=== PATIENT | female | born 1980 | race Caucasian/White ===

== ENCOUNTER 2017-02-11 16:11 | Inpatient (IN) | payer OTHER ==
[~2017-02-11] VITALS: Ht 162.6 cm; Wt 110.9 kg
[~2017-02-11 16:11] MED LIST: FERR28TA2 OR; LBT/200 PO; PERCOCET 5-325M1 TAB PO; PRENATA2 OR
[2017-02-11] MEDS ORDERED: SODIUM CHLORIDE 0.9% 1000ML 1,000 ML IV STA (16:31)
[2017-02-11] MEDS ORDERED: METF-384 PO (16:53)
[2017-02-11] MEDS ORDERED: DULA1INJ SQ (16:57)
[2017-02-11 17:11] LABS: BASO % 0.1 %; BASO ABS # 0.01 K/uL (0-0.2); COMPLETE YES; EOS % 2.4 %; HEMATOCRIT 32.8 % (37-47); IG% 0.2 %; LYMPH % 22.2 %; LYMPH ABS # 1.98 K/uL (1.2-3.4); MEAN CELL VOLUME 89.9 fL (80-100); MEAN CORPUSCULAR HEMOGLOBIN 31.8 pg (25-34); MEAN CORPUSCULAR HGB CONC 35.4 g/dl (32-36); MEAN PLATELET VOLUME 8.4 fL (7.4-10.4); NEUT % 66.1 %; PLATELET COUNT 253 K/uL (130-400); RED BLOOD COUNT 3.65 M/uL (4.2-5.4); WHITE BLOOD COUNT 8.93 K/uL (4.8-10.8)
[2017-02-11 17:41] LABS: PREG INTERNAL NEGATIVE QC NEG CLEAR BACKGROUND; PREG INTERNAL POSITIVE QC POS CONTROL LINE
[2017-02-11 17:45] LABS: ALKALINE PHOSPHATASE 57 U/L (45-117); ALT/SGPT 343 U/L (12-78); AST/SGOT 266 U/L (15-37); BLOOD UREA NITROGEN 75 mg/dl (7-18); BUN/CREATININE RATIO 6.2 (10-20); CALCIUM 9.4 mg/dl (8.5-10.1); CARBON DIOXIDE 20 mmol/L (21-32); CHLORIDE 99 mmol/L (98-107); GLUCOSE 145 mg/dl (70-99); POTASSIUM 4.2 mmol/L (3.5-5.1); SODIUM 134 mmol/L (136-145)
[2017-02-11 18:34] LABS: URINE APPEARANCE TURBID (CLEAR); URINE BILIRUBIN NEG (NEG); URINE COLOR ORANGE; URINE EPITHELIAL CELL AUTO >30 /lpf (0-5); URINE NITRITE NEG (NEG); URINE SPECIFIC GRAVITY 1.017 (1.000-1.030); UROBILINOGEN NEG (NEG)
[2017-02-11 18:38] LABS: MANUAL MICROSCOPIC REQUIRED? NO; REVIEW REQ? YES
[2017-02-11] MEDS ORDERED: MAGNESIUM HYDROXIDE SUSP 30 ML UDC PO PRN (20:00)
[2017-02-11] MEDS ORDERED: ALUMINUM/MAGNESIUM/SIMETH (MAALOX MAX) 30 ML UDC PO PRN (20:00)
[2017-02-11] MEDS ORDERED: ONDANSETRON INJ 2 MG/ML 2 ML VIAL IV PRN (20:00)
--- NOTE | 2017-02-11 20:19 | History and Physical ---
History & Physical Date & Time of Service: Feb 11, 2017 at 19:59 Chief Complaint: Vomiting, Diarrhea, Fatigue Primary Care Physician: Alexandro Malhotra M.D. History of Present Illness Source: patient 36 year old female with a PMH of T2DM presented to the hospital after she noticed that she had not urinated in two days She was having a yard sale this weekend and was moving plenty of boxes. She was exerting herself a lot and did not take a lot of time to rest. On she started having lots of aches and pains which got better yesterday. She was also feeling very nauseated all weekend and vomited on Saturday. Despite feeling this way she continued to exert herself throughout the weekend. She drank 2-3 bottles of water daily; however, she did not have much of an appetite over the weekend due to the aches and pains. Then this morning she noticed that she had not urinated in two days and therefore she came to the emergency department. In the ED she was found to have a Creatinine of 12 and was found to have CK of 8278 and therefore she was admitted to the hospital Family History Mom has diabetes Social History Smoking Status: Never Smoker Alcohol Use: occasionally Drug Use: none Housing status: lives with family Multi-Drug Resistant Organisms History of MDRO: No Allergies Coded Allergies: Aspirin (Verified Allergy, Intermediate, SWELLING, 11/21/09) Iodine (Verified Allergy, Unknown, SHELLFISH, 11/16/09) Salicylates (Verified Allergy, Unknown, ?, 11/16/09) Home Medications Scheduled Dulaglutide (Trulicity), 0.75 MG SQ WK Metformin Hcl (Glucophage), 1,000 MG PO BID Pravastatin Sod (Pravastatin Sodium), 10 MG PO DAILY Sertraline (Zoloft), 50 MG PO DAILY Review of Systems Constitutional: + chills, + fatigue, No fever, No sweats Respiratory: No cough, No sputum, No shortness of breath, No dyspnea on exertion Cardiovascular: No chest pain, No orthopnea, No edema, No palpitations Abdomen: + nausea, + vomiting, No pain, No diarrhea, No constipation Musculoskeletal: + muscle pain, No joint pain Genitourinary - Female: No dysuria, No hematuria Hematologic / Lymphatic: No abnormal bleeding/bruising, No clotting problems Integumentary: No rash, No itch, No new/changing skin lesions Physical Exam Vital Signs Date Time Temp Pulse Resp B/P (MAP) Pulse Ox O2 Delivery O2 Flow Rate FiO2 02/11/17 18:05 97 20 171/104 99 Room Air 02/11/17 17:25 89 02/11/17 17:17 90 20 171/106 100 Room Air 02/11/17 16:14 36.9 96 16 181/101 99 Room Air General Appearance: WD/WN, no apparent distress, + obese Head: normocephalic, atraumatic ENT: hearing grossly normal, pharynx normal Neck: supple, no adenopathy, thyroid normal, no JVD, no carotid bruits Respiratory/Chest: chest non-tender, lungs clear, normal breath sounds, no respiratory distress, no accessory muscle use Cardiovascular: regular rate, rhythm, no edema, no gallop, no murmur, normal peripheral pulses Abdomen/GI: normal bowel sounds, non tender, soft, no organomegaly Back: normal inspection, no CVA tenderness, no muscle spasm Extremities/Musculoskelatal: no calf tenderness, no pedal edema, normal range of motion, non-tender Neurologic/Psych: alert, normal mood/affect, oriented x 3 Skin: normal color, warm/dry, no rash Diagnostics Laboratory Results Results Past 24 Hours Test 02/11/17 16:55 02/11/17 16:56 02/11/17 17:01 02/11/17 18:10 Range/Units Bedside Glucose 147 70-90 mg/dl White Blood Count 8.93 4.8-10.8 K/uL Red Blood Count 3.65 4.2-5.4 M/uL Hemoglobin 11.6 12.0-16.0 g/dL Hematocrit 32.8 37-47 % Mean Corpuscular Volume 89.9 80-100 fL Mean Corpuscular Hemoglobin 31.8 25-34 pg Mean Corpuscular Hemoglobin Concent 35.4 32-36 g/dl Platelet Count 253 130-400 K/uL Mean Platelet Volume 8.4 7.4-10.4 fL Neutrophils (%) (Auto) 66.1 % Lymphocytes (%) (Auto) 22.2 % Monocytes (%) (Auto) 9.0 % Eosinophils (%) (Auto) 2.4 % Basophils (%) (Auto) 0.1 % Neutrophils # (Auto) 5.91 1.4-6.5 K/uL Lymphocytes # (Auto) 1.98 1.2-3.4 K/uL Monocytes # (Auto) 0.80 0.11-0.59 K/uL Eosinophils # (Auto) 0.21 0-0.5 K/uL Basophils # (Auto) 0.01 0-0.2 K/uL RDW Standard Deviation 42.9 36.4-46.3 fL RDW Coefficient of Variation 13.1 11.5-14.5 % Immature Granulocyte % (Auto) 0.2 % Immature Granulocyte # (Auto) 0.02 0.00-0.02 K/uL Sodium Level 134 136-145 mmol/L Potassium Level 4.2 3.5-5.1 mmol/L Chloride Level 99 98-107 mmol/L Carbon Dioxide Level 20 21-32 mmol/L Anion Gap 15.0 3-11 mmol/L Blood Urea Nitrogen 75 7-18 mg/dl Creatinine 12.00 0.60-1.20 mg/dl Est Creatinine Clear Calc Drug Dose 7.5 ml/min Estimated GFR () 4.1 Estimated GFR (Non- 3.5 BUN/Creatinine Ratio 6.2 10-20 Random Glucose 145 70-99 mg/dl Calcium Level 9.4 8.5-10.1 mg/dl Total Bilirubin 0.3 0.2-1 mg/dl Direct Bilirubin < 0.1 0-0.2 mg/dl Aspartate Amino Transf (AST/SGOT) 266 15-37 U/L Alanine Aminotransferase (ALT/SGPT) 343 12-78 U/L Alkaline Phosphatase 57 45-117 U/L Total Creatine Kinase 8728 26-192 U/L Total Protein 7.2 6.4-8.2 gm/dl Albumin 3.3 3.4-5.0 gm/dl Lipase 375 73-393 U/L Human Chorionic Gonadotropin, Qual NEG NEG Bedside Troponin I < 0.030 0-0.045 ng/ml Urine Color ORANGE Urine Appearance TURBID CLEAR Urine pH 6.0 4.5-7.5 Urine Specific [place] 1.017 1.000-1.030 Urine Protein 4+ NEG Urine Glucose (UA) 1+ NEG Urine Ketones NEG NEG Urine Occult Blood 3+ NEG Urine Nitrite NEG NEG Urine Bilirubin NEG NEG Urine Urobilinogen NEG NEG Urine Leukocyte Esterase MODERATE NEG Urine WBC (Auto) >30 0-5 /hpf Urine RBC (Auto) >30 0-4 /hpf Urine Hyaline Casts (Auto) 1-5 0-5 /lpf Urine Epithelial Cells (Auto) >30 0-5 /lpf Urine Bacteria (Auto) 3+ NEG Urine Crystals NONE PRSENT Urine Pathogenic Casts 0 /lpf Normal EKG Impression Assessment and Plan 36 year old female with a PMH of T2DM came to the hospital after not having urinated in two days and was found to have a creatinine of 12 Differential diagnosis for this individual includes rhabdomyolysis due to extreme exertion over the weekend. There is also the question as to whether or not her new diabetic medication (trulicity) has caused nephrotoxicity. RADHA (rhabdomyolysis) - creatinine 12 in the ED - repeat CMP in the AM - IVF 150mls/hr - monitor I/O's - hold home meds Elevated LFT's - likely due to rhabdo, patient also on statin - statin held - repeat CMP in the AM T2DM - ISS - hold metformin and trulicity Depression - continue zoloft Diet - T2DM diet DVT Prophylaxis - heparin subq Code - Full Level of Care Med/Surg Resuscitation Status FULL RESUSCITATION VTE Prophylaxis VTE Risk Assessment Done? Y/N: Yes Risk Level: Moderate Given or contraindicated: Unfractionated heparin SQ
[2017-02-11] MEDS ORDERED: GLUCOSE 10 TABS/TUBE PO PRN (20:30)
[2017-02-11] MEDS ORDERED: GLUCAGON FOR INJ 1 MG VIAL SQ PRN (20:30)
[2017-02-11] MEDS ORDERED: POLYETHYLENE (MIRALAX) 17 GM PACK PO PRN (20:30)
[2017-02-11] MEDS ORDERED: GLUCOSE 40% GEL 15 GM TUBE PO PRN (20:30)
[2017-02-11] MEDS ORDERED: DEXTROSE 50% 50 ML SYR IV PRN (20:30)
[2017-02-11 21:12] VITALS: BP 175/97; PULSE 95; TEMP 36.9; O2SAT 98
[2017-02-11 21:22] VITALS: O2SAT 98; BMI 39.3
[2017-02-11] MEDS: SODIUM CHLORIDE 0.9% 1000ML 1,000 ML IV SCH (21:59)
[2017-02-11] MEDS: INSULIN ASPART 100 UNITS/ML 3 ML PEN SC SCH (21:59)
[2017-02-11 22:27] LABS: LYME DISEASE AB IGG NEG (NEG); LYME DISEASE AB IGM NEG (NEG)
[2017-02-11 22:30] VITALS: BP 169/97; PULSE 95
[2017-02-11] MEDS: HEPARIN SOD 5000 UNIT/0.5 ML CARP SQ SCH (22:30)
[2017-02-11 22:45] VITALS: BP 151/84; PULSE 106; TEMP 36.8; O2SAT 99
[2017-02-11] MEDS ORDERED: NURSING VERBAL MED ORDER ONE (22:45)
[2017-02-11] MEDS ORDERED: METOPROLOL TARTRATE 50 MG TAB PO ONE (23:16)
[2017-02-11 23:22] VITALS: BP 173/113; PULSE 93
[2017-02-12] VITALS (7 sets, daily range): BP systolic 146–179; BP diastolic 89–108; PULSE 70–76; TEMP 36.2–36.8; O2SAT 94–97
--- NOTE | 2017-02-12 00:44 | EMERGENCY ROOM VISIT NOTE ---
ED Visit Note First contact with patient: 16:17 Chief Complaint: Fatigue and decreased urination. History of Present Illness: Ms. Smith is a 36-year-old white female who ambulates into the ED accompanied by a female friend, generalized body aches, generalized abdominal pain and decreased urination. Patient reports last , 4 days ago, she reports she was working around her house; lifting heavy boxes, moving furniture, etc. She reports she became nauseated and had one episode of vomiting. Then on Saturday she reports she was not working around the house but was having fatigue, diaphoresis, generalized muscle aches. Lastly she reports she has not been able to urinate for the last 2 days. She reports she has no urge, but she has sat on the toilet but was not able to produce any urine and she reports that her stools were watery when she had a bowel movement but she has had no increase in the amount of her bowel movements. She questions whether she is dehydrated because she also reports that she feels thirsty and has been drinking lots of water; she could not identify the exact amount. Patient denies fevers, chills, skin eruptions, skin color changes, headache, dizziness, lightheadedness, abnormal neurological symptoms, upper respiratory tract symptoms, chest pain, shortness of breath, cough, wheezing, palpitations, additional nausea, additional vomiting, bloody stools, black/tarry stools, previous urinary burning, hematuria, back/flank pain, extremity weakness/ numbness/tingling. Review of Systems: As noted above in history of present illness. All body systems were reviewed and found to be negative as noted above. Past Medical History: Diabetes. Current Medications: Trulicity, Zoloft, Pravastatin, Glucophage. Allergies to Medications: Aspirin, salicylates, iodine. Social History: Patient is currently employed; she feels safe in her home environment; she denies tobacco use and admits to social alcohol use. Physical Examination: Vital Signs: Date Time Temp Pulse Resp B/P (MAP) Pulse Ox O2 Delivery O2 Flow Rate FiO2 02/11/17 18:05 97 20 171/104 99 Room Air 02/11/17 17:25 89 02/11/17 17:17 90 20 171/106 100 Room Air 02/11/17 16:14 36.9 96 16 181/101 99 Room Air GENERAL: 36-year-old female in mild distress due to symptoms, nontoxic-appearing , afebrile and hemodynamically stable. NEUROLOGICAL: Awake, alert and oriented to person, place and time. Answering questions appropriately and following commands. Normal gait. Good hand eye coordination. No focal motor or sensory deficits. SKIN: Warm, dry and pink. HEENT: Atraumatic and normocephalic. PERRLA. Sclera white and conjunctiva pink. No drainage from naris. Oral cavity moist and pink. Pharynx is nonerythematous or edematous. Airway is patent. Speech normal. Trachea midline. No jugular venous distention. BACK: No tenderness over the bony spine. No CVA tenderness. THORAX: Lungs sounds are clear to auscultation and equal bilaterally with symmetrical chest wall. No crepitus, tenderness, subcutaneous air or deformities noted. HEART: Regular rate and rhythm. No gallops, rubs or murmurs are appreciated. ABDOMEN: Obese, soft and nontender. Positive bowel sounds in all quadrants. No guarding, rigidity or organomegaly. EXTREMITIES: Moves all extremities well on command and with purpose. All distal neurovascular statuses are intact and equal bilaterally. No calf tenderness or cords. ED Course: Patient is assessed as noted above. Patient's medication list was reviewed. Laboratory Testing: Test 02/11/17 16:55 02/11/17 16:56 02/11/17 17:01 02/11/17 18:10 Range/Units Bedside Glucose 147 70-90 mg/dl White Blood Count 8.93 4.8-10.8 K/uL Red Blood Count 3.65 4.2-5.4 M/uL Hemoglobin 11.6 12.0-16.0 g/dL Hematocrit 32.8 37-47 % Mean Corpuscular Volume 89.9 80-100 fL Mean Corpuscular Hemoglobin 31.8 25-34 pg Mean Corpuscular Hemoglobin Concent 35.4 32-36 g/dl Platelet Count 253 130-400 K/uL Mean Platelet Volume 8.4 7.4-10.4 fL Neutrophils (%) (Auto) 66.1 % Lymphocytes (%) (Auto) 22.2 % Monocytes (%) (Auto) 9.0 % Eosinophils (%) (Auto) 2.4 % Basophils (%) (Auto) 0.1 % Neutrophils # (Auto) 5.91 1.4-6.5 K/uL Lymphocytes # (Auto) 1.98 1.2-3.4 K/uL Monocytes # (Auto) 0.80 0.11-0.59 K/uL Eosinophils # (Auto) 0.21 0-0.5 K/uL Basophils # (Auto) 0.01 0-0.2 K/uL RDW Standard Deviation 42.9 36.4-46.3 fL RDW Coefficient of Variation 13.1 11.5-14.5 % Immature Granulocyte % (Auto) 0.2 % Immature Granulocyte # (Auto) 0.02 0.00-0.02 K/uL Sodium Level 134 136-145 mmol/L Potassium Level 4.2 3.5-5.1 mmol/L Chloride Level 99 98-107 mmol/L Carbon Dioxide Level 20 21-32 mmol/L Anion Gap 15.0 3-11 mmol/L Blood Urea Nitrogen 75 7-18 mg/dl Creatinine 12.00 0.60-1.20 mg/dl Est Creatinine Clear Calc Drug Dose 7.5 ml/min Estimated GFR () 4.1 Estimated GFR (Non- 3.5 BUN/Creatinine Ratio 6.2 10-20 Random Glucose 145 70-99 mg/dl Calcium Level 9.4 8.5-10.1 mg/dl Total Bilirubin 0.3 0.2-1 mg/dl Direct Bilirubin < 0.1 0-0.2 mg/dl Aspartate Amino Transf (AST/SGOT) 266 15-37 U/L Alanine Aminotransferase (ALT/SGPT) 343 12-78 U/L Alkaline Phosphatase 57 45-117 U/L Total Creatine Kinase 8728 26-192 U/L Total Protein 7.2 6.4-8.2 gm/dl Albumin 3.3 3.4-5.0 gm/dl Lipase 375 73-393 U/L Human Chorionic Gonadotropin, Qual NEG NEG Lyme Disease IgG Antibody NEG NEG Lyme Disease IgM Antibody NEG NEG Bedside Troponin I < 0.030 0-0.045 ng/ml Urine Color ORANGE Urine Appearance TURBID CLEAR Urine pH 6.0 4.5-7.5 Urine Specific [place] 1.017 1.000-1.030 Urine Protein 4+ NEG Urine Glucose (UA) 1+ NEG Urine Ketones NEG NEG Urine Occult Blood 3+ NEG Urine Nitrite NEG NEG Urine Bilirubin NEG NEG Urine Urobilinogen NEG NEG Urine Leukocyte Esterase MODERATE NEG Urine WBC (Auto) >30 0-5 /hpf Urine RBC (Auto) >30 0-4 /hpf Urine Hyaline Casts (Auto) 1-5 0-5 /lpf Urine Epithelial Cells (Auto) >30 0-5 /lpf Urine Bacteria (Auto) 3+ NEG Urine Crystals NONE PRSENT Urine Pathogenic Casts 0 /lpf EKG: Was read by myself and reviewed with Dr. Sanz; shows normal sinus rhythm with a ventricular rate of 88 bpm. Normal axis, intervals and complexes. No acute ST changes indicating ischemia, injury or infarction. This was compared to a previous from November 2009 and no acute changes were noted. Bladder Scan: Showed 30 mL of urine in the bladder. Patient was hydrated with normal saline; she was offered pain medications and refused. Patient was reassessed multiple times during her stay in the emergency department. Patient's case was reviewed with Dr. Sanz; we agreed on diagnostic approach , treatment, disposition and plan. Patient's case was consulted with case management and the doctor Tiana Edgar , hospitalist, for medical observation/admission. Patient was educated about today's findings. Clinical Impression: Rhabdomyolysis. Acute kidney injury. Elevated liver function tests. Decision-Making: Initially my differential diagnosis I considered rhabdomyolysis , acute coronary syndrome, thyroid dysfunction, electrolyte abnormality, urinary tract infection and other causes. Disposition and Plan: Patient be brought in the hospital for observation/ admission by the hospitalist; please see their notes and orders for final disposition and plan.
[2017-02-12] MEDS: SODIUM CHLORIDE 0.9% 1000ML 1,000 ML IV SCH ×3 (03:49→17:25)
[2017-02-12 06:43] LABS: ALB/GLOB RATIO 0.7 (0.9-2); BUN/CREATININE RATIO 6.3 (10-20); POTASSIUM 4.5 mmol/L (3.5-5.1)
[2017-02-12] MEDS: SERTRALINE HCL 50 MG TAB PO SCH (08:56)
[2017-02-12] MEDS: INSULIN ASPART 100 UNITS/ML 3 ML PEN SC SCH ×4 (09:00→20:55)
[2017-02-12] MEDS ORDERED: METOPROLOL TARTRATE 50 MG TAB PO SCH (09:00)
[2017-02-12] MEDS ORDERED: ENOXAPARIN 30 MG/0.3 ML SYR SQ SCH (09:00)
[2017-02-12] MEDS: HEPARIN SOD 5000 UNIT/0.5 ML CARP SQ SCH ×2 (10:29→21:15)
--- NOTE | 2017-02-12 11:20 | DIAGNOSTIC IMAGING REPORT ---
ULTRASOUND KIDNEYS AND BLADDER CLINICAL HISTORY: Acute renal insufficiency. COMPARISON STUDY: No priors. TECHNIQUE: Real-time, grayscale, and color flow sonography of the kidneys and bladder is performed. Images are reviewed in the transverse and longitudinal planes. FINDINGS: Kidneys: The kidneys are normal in size and echotexture. The right kidney measures 14.0 x 7.2 x 6.2 cm and the left kidney measures 13.1 x 7.3 x 6.8 cm. There is no hydronephrosis. No shadowing renal calculi are identified. There is no sonographic evidence of contour deforming renal mass lesion. No perinephric fluid is identified. Bladder: The bladder is decompressed and not well assessed. Ureteral jets could not be seen. Upper abdomen: Survey images of the liver show evidence of hepatic steatosis. IMPRESSION: 1. The kidneys are normal in size and without hydronephrosis. 2. The bladder was decompressed and not well assessed. 3. Hepatic steatosis. Electronically signed by: Mane Miles M.D. 02/12/2017 11:19 AM Dictated Date/Time: 02/12/2017 11:18 AM
--- NOTE | 2017-02-12 17:50 | Progress Note ---
Subjective Date of Service: Feb 12, 2017. Subjective Pt evaluation today including: conversation w/ patient, physical exam, chart review, lab review, review of studies, review of inpatient medication list continues to feel achy. no f/c/s. still minimal UO. really no other complaints. ROS otherwise negative except for as above Review of Systems ROS otherwise negative except for as above Objective Vital Signs Date Time Temp Pulse Resp B/P (MAP) Pulse Ox O2 Delivery O2 Flow Rate FiO2 02/12/17 15:50 168/107 (127) 02/12/17 15:45 Room Air 02/12/17 14:47 36.2 71 16 169/108 (128) 97 Room Air 02/12/17 08:15 Room Air 02/12/17 07:14 36.8 76 18 149/89 (109) 97 Room Air 02/12/17 00:42 74 146/89 (108) 02/11/17 23:22 93 173/113 (133) 02/11/17 23:20 Room Air 02/11/17 22:45 36.8 106 16 151/84 (106) 99 Room Air 02/11/17 22:30 95 169/97 (121) 02/11/17 21:52 Room Air 02/11/17 21:22 98 Room Air 02/11/17 21:12 36.9 95 18 175/97 (123) 98 Room Air 02/11/17 20:30 92 20 167/101 99 Room Air 02/11/17 20:04 91 18 185/109 99 Room Air 02/11/17 18:05 97 20 171/104 99 Room Air Physical Exam General Appearance: no apparent distress Eyes: EOMI ENT: hearing grossly normal Neck: trachea midline Respiratory/Chest: no respiratory distress, no accessory muscle use Extremities: normal range of motion Neurologic/Psychiatric: plastic manager II-XII nml as tested, alert, normal mood/affect Skin: normal color, warm/dry Laboratory Results Last 24 Hours Test 02/11/17 18:10 02/11/17 21:12 02/12/17 05:04 02/12/17 08:11 Urine Color ORANGE Urine Appearance TURBID Urine pH 6.0 Urine Specific [place] 1.017 Urine Protein 4+ Urine Glucose (UA) 1+ Urine Ketones NEG Urine Occult Blood 3+ Urine Nitrite NEG Urine Bilirubin NEG Urine Urobilinogen NEG Urine Leukocyte Esterase MODERATE Urine WBC (Auto) >30 /hpf Urine RBC (Auto) >30 /hpf Urine Hyaline Casts (Auto) 1-5 /lpf Urine Epithelial Cells (Auto) >30 /lpf Urine Bacteria (Auto) 3+ Urine Crystals Urine Pathogenic Casts /lpf Bedside Glucose 109 mg/dl 119 mg/dl Sodium Level 138 mmol/L Potassium Level 4.5 mmol/L Chloride Level 106 mmol/L Carbon Dioxide Level 17 mmol/L Anion Gap 15.0 mmol/L Blood Urea Nitrogen 69 mg/dl Creatinine 11.00 mg/dl Est Creatinine Clear Calc Drug Dose 8.1 ml/min Estimated GFR () 4.6 Estimated GFR (Non- 3.9 BUN/Creatinine Ratio 6.3 Random Glucose 105 mg/dl Calcium Level 8.0 mg/dl Total Bilirubin 0.3 mg/dl Aspartate Amino Transf (AST/SGOT) 138 U/L Alanine Aminotransferase (ALT/SGPT) 259 U/L Alkaline Phosphatase 52 U/L Total Creatine Kinase 4915 U/L Total Protein 6.4 gm/dl Albumin 2.7 gm/dl Globulin 3.7 gm/dl Albumin/Globulin Ratio 0.7 Test 02/12/17 12:00 02/12/17 16:59 Bedside Glucose 106 mg/dl 115 mg/dl Assessment and Plan ARF -with hindsight, and with CPK not continuing to rise, highly doubt that rhabdo is the cause -while rare, seems more likely that trulicty ADR may be culprit, with dehydration and ?mild rhabdo causing a degree of overlay -renal US without obstruction -continue IVF (since such low UO and now well hydrated, will reduce rate to avoid iatrogenic overload due to near-anuria) -if doesn't show significant improvement into tomorrow then consult nephro Elevated LFT's - multiple possibilities - has fatty liver, statin possible culprit, maybe small effects from rhabdo - statin held - repeat CMP in the AM T2DM - ISS - holding metformin and trulicity - most recent A1c 6.7 Depression - continue zoloft HTN -elevated but don't want to create hypotension that could reduce renal perfusion -through day continued home dose of metoprolol but persistently stage 3 or higher - so will raise to 75mg bid and continue to follow DVT Prophylaxis - heparin subq hypocalcemia -check vitamin D, especially w DM2, renal failure, obesity
[2017-02-12] MEDS: SODIUM CHLORIDE 0.45% 1000ML 1,000 ML IV SCH (18:43)
[2017-02-12] MEDS ORDERED: TEMAZEPAM 7.5 MG CAP PO PRN (19:00)
[2017-02-12] MEDS: METOPROLOL TARTRATE 25 MG TAB PO SCH (21:04)
[2017-02-12] MEDS: ACETAMINOPHEN 325 MG TAB PO PRN (21:04)
[2017-02-13] VITALS (39 sets, daily range): BP systolic 119–249; BP diastolic 78–139; PULSE 72–100; TEMP 36.5–36.9; O2SAT 94–99
[2017-02-13] MEDS: SODIUM CHLORIDE 0.45% 1000ML 1,000 ML IV SCH (03:13)
[2017-02-13] MEDS ORDERED: AMLODIPINE BESYLATE 5 MG TAB PO ONE (08:30)
[2017-02-13] MEDS: METOPROLOL TARTRATE 25 MG TAB PO SCH ×2 (08:57→22:14)
[2017-02-13] MEDS: SERTRALINE HCL 50 MG TAB PO SCH (08:57)
[2017-02-13] MEDS: HydrALAZINE HCL 20 MG/ML VIAL IV. PRN ×2 (09:03→15:13)
[2017-02-13] MEDS: INSULIN ASPART 100 UNITS/ML 3 ML PEN SC SCH ×4 (09:17→22:14)
[2017-02-13 09:28] LABS: ALB/GLOB RATIO 0.7 (0.9-2); BUN/CREATININE RATIO 6.1 (10-20); CALCIUM 8.7 mg/dl (8.5-10.1); POTASSIUM 5.5 mmol/L (3.5-5.1)
[2017-02-13] MEDS ORDERED: FUROSEMIDE INJ 120 MG in SYRINGE 0 ML IV SCH (10:00)
[2017-02-13] MEDS ORDERED: NURSING VERBAL MED ORDER ONE (10:00)
[2017-02-13] MEDS: HEPARIN SOD 5000 UNIT/0.5 ML CARP SQ SCH ×2 (10:00→22:14)
--- NOTE | 2017-02-13 10:35 | DIAGNOSTIC IMAGING REPORT ---
SINGLE VIEW CHEST CLINICAL HISTORY: Dyspnea. FINDINGS: An AP, portable, upright chest radiograph is obtained. No prior studies are available for comparison at the time of dictation. The examination is degraded by portable technique, large body habitus, and apical lordotic positioning. The heart is top normal for projection. The mediastinal contour is within normal limits. There are mild bibasilar airspace opacities. The lungs are otherwise clear. No large pleural effusion or pneumothorax is seen. The bony thorax is grossly intact. IMPRESSION: Bibasilar airspace opacities likely represent atelectasis. Clinical correlation will be required. The lungs are otherwise clear. Electronically signed by: Mane Miles M.D. 02/13/2017 10:34 AM Dictated Date/Time: 02/13/2017 10:33 AM
--- NOTE | 2017-02-13 12:36 | Nephrology Consultation ---
Nephrology Consultation Date & Providers Date of Consultation: Feb 13, 2017. Primary Care Provider: Alexandro Malhotra M.D. Referring Provider: Reason for Consultation Evaluation and management for acute kidney injury, anuria, hyperkalemia and gap metabolic acidosis. History of Present Illness Jamee is a 36-year-old female with past medical history significant for diabetes type 2 and hypertension admitted to the hospital with acute kidney injury. Nephrologic consult was requested for further evaluation management. Electronic medical records were reviewed in detail during patient's visit. Jamee was otherwise doing well until 5 days ago when she started having nausea, fatigue, muscle ache and weakness while she was working around the house. Did not have any diarrhea or abdominal pain. No fever, chills, shortness of breath or chest pain. 3 days ago she started noticing decreased urine output and for last 2 days she did not urinate much, got concerned and presented to the emergency room for further evaluation. She feels thirsty and she reports are that she has been drinking more. she denies chronic NSAID use, rarely uses Advil but recently just took 1 dose of Tylenol. no recent antibiotic. She was started on Trulicity almost 6 weeks ago. Has been on pravastatin, no history of PPI use. She has been on metformin at home. Has not been on any DERICK-inhibitor/ARB. Has history of diabetes for more than 6 years , has been on metformin until recently when she was started on Trulicity almost 6 weeks ago. no history of diabetic retinopathy. no significant history of hypertension. She has history of proteinuria but well preserved GFR, baseline creatinine has been around 1-1.3, Last creatinine was the 1.0 in December. Prior urinalysis showed history of high grade proteinuria. She is a nonsmoker, denies any family history of chronic kidney disease or end-stage renal disease. On admission her creatinine was 12, worsened to 14 on repeat lab this morning. Has metabolic acidosis with high anion gap as well as hyperkalemia, last potassium was 5.5. CPK was 8500 which improved to 4000 this morning. She made minimum amount of urine since admission. has been getting IV normal saline. Pravastatin, Trulicity and metformin was discontinued on admission. Currently she is feeling short of breath and in discomforted with shortness of breath however denies any other symptoms. Allergies Coded Allergies: Aspirin (Verified Allergy, Intermediate, SWELLING, 11/21/09) Iodine (Verified Allergy, Unknown, SHELLFISH, 11/16/09) Salicylates (Verified Allergy, Unknown, ?, 11/16/09) Inpatient Medications Current Inpatient Medications Medications (Trade) Dose Ordered Sig/Xiang Route Start Time Stop Time Status Last Admin Dose Admin Acetaminophen (Tylenol Tab) 650 mg Q4H PRN PO 02/11/17 20:00 03/13/17 19:59 02/12/17 21:04 650 MG Al Hydrox/Mg Hydrox/Simethicone (Maalox Max Susp) 15 ml Q4H PRN PO 02/11/17 20:00 03/13/17 19:59 Magnesium Hydroxide (Milk Of Magnesia Susp) 30 ml Q6H PRN PO 02/11/17 20:00 03/13/17 19:59 Polyethylene (Miralax Powder Packet) 17 gm DAILY PRN PO 02/11/17 20:30 03/13/17 20:29 Ondansetron HCl (Zofran Inj) 4 mg Q6H PRN IV 02/11/17 20:00 03/13/17 19:59 Sertraline HCl (Zoloft Tab) 50 mg DAILY PO 02/12/17 09:00 03/14/17 08:59 02/12/17 08:56 50 MG Insulin Aspart (novoLOG ASPART) SLIDING SCALE G... ACHS SC 02/11/17 22:00 03/13/17 21:59 02/12/17 09:00 3 UNITS Heparin Sodium (Porcine) (Heparin Sq 5000 Unit/0.5ml) 5,000 unit Q12H SQ 02/11/17 22:00 03/13/17 21:59 02/12/17 10:29 5,000 UNIT Glucose (Glucose 40% Gel) 15-30 GRAMS 15 GRAMS... UD PRN PO 02/11/17 20:30 03/13/17 20:29 Glucose (Glucose Chew Tab) 4-8 Tablets 4 Tabl... UD PRN PO 02/11/17 20:30 03/13/17 20:29 Dextrose (Dextrose 50% 50ML Syringe) 25-50ML OF 50% DW IV FOR... UD PRN IV 02/11/17 20:30 03/13/17 20:29 Glucagon (Glucagon Inj) 1 mg UD PRN SQ 02/11/17 20:30 03/13/17 20:29 Metoprolol Tartrate (Lopressor Tab) 75 mg BID PO 02/12/17 21:00 03/14/17 08:59 02/12/17 21:04 75 MG Sodium Chloride 1,000 ml @ 100 mls/hr Q10H IV 02/12/17 18:00 03/14/17 17:59 02/13/17 03:13 100 MLS/HR Temazepam (Restoril Cap) 7.5 mg HS PRN PO 02/12/17 19:00 03/14/17 18:59 02/12/17 21:04 7.5 MG Amlodipine Besylate (Norvasc Tab) 10 mg QAM PO 02/14/17 09:00 03/16/17 08:59 Hydralazine HCl (HydrALAZINE INJ) 5 mg Q4 PRN IV. 02/13/17 08:30 03/15/17 08:29 Family History No h/o CKD, ESRD Social History Smoking Status: Never Smoker Alcohol Use: occasionally Drug Use: none Housing Status: lives with family Review of Systems A complete review of systems was performed. Pertinent positives are noted above. All other systems are negative. Physical Exam Date Time Temp Pulse Resp B/P (MAP) Pulse Ox O2 Delivery O2 Flow Rate FiO2 02/13/17 08:38 73 30 194/109 (137) 02/13/17 08:13 75 26 196/116 (142) 96 Room Air 02/13/17 08:08 72 34 204/132 (156) 96 Room Air 02/13/17 08:06 36.5 73 28 187/126 (146) 97 Room Air 02/13/17 00:22 159/98 (118) 02/13/17 00:15 Room Air 02/12/17 23:57 168/101 (123) 02/12/17 23:35 36.7 71 18 179/101 (127) 94 Room Air 02/12/17 20:58 70 166/100 (122) 02/12/17 15:50 168/107 (127) 02/12/17 15:45 Room Air 02/12/17 14:47 36.2 71 16 169/108 (128) 97 Room Air GENERAL: young female, obese, AAA x 3, pleasant, in mild distress. HEENT: Atraumatic, normocephalic. NECK: Supple, no JVD, no carotid bruit appreciated. ENT: No sinus tenderness MOUTH and THROAT: Moist oral mucosa, no oral ulcer or pharyngeal erythema RESPIRATORY: Normal breathing efforts, no accessory muscle use, bibasilar rales. CARDIOVASCULAR: S1, S2 normal, rate rhythm regular. ABDOMEN: Soft, nontender, positive bowel sound. MUSCULOSKELETAL: No CVA tenderness. No joint swelling, erythema or tenderness. Normal range of motion. SKIN: No skin rash EXTREMITY: No lower extremity edema NEURO: No gross focal neurological deficit, speech fluent. PSYCHIATRY: Normal mood and judgment Laboratory Results Last 24 Hours Test 02/12/17 12:00 02/12/17 16:59 02/12/17 20:30 02/13/17 08:04 Bedside Glucose 106 mg/dl 115 mg/dl 98 mg/dl Test 02/13/17 08:13 Bedside Glucose 108 mg/dl Impression (1) Acute kidney injury (2) Anuria (3) Hyperkalemia, diminished renal excretion (4) Increased anion gap metabolic acidosis (5) Anemia Jamee is a 36-year-old female with baseline decent renal function, proteinuria , diabetes admitted to the hospital with 4 day history of via nausea, fatigue and two-day history of via oliguria/anuria found to have acute kidney injury, gap metabolic acidosis and hyperkalemia. Past medical history only significant for diabetes with proteinuria and has been on metformin and recently started on trulicity. was on pravastatin which was discontinued, CPK was 8000 on admission which dropped to 4000. Baseline creatinine has been 1-1.3, on admission creatinine was 12 which worsened to 40 in this morning, has potassium 5.5 and metabolic acidosis, bicarb currently dropped to 11.. She has been oliguric anuric, has been on IV fluid and currently seems to be volume overloaded and getting symptomatic with significant shortness of breath. Acidosis has been worsening.. Unclear etiology for acute kidney injury, possibility for Zulema with Trulicity remains, however with her systemic symptoms for last 5 days, there is concern for acute GN. Although ATN from volume depletion or rhabdomyolysis is a possibility however with CPK only in 8000 would not expect this dense ATN. Patient has been short of breath however physical exam and chest x-ray is not really conclusive for significant pulmonary edema. Concern for PE however may be less likely. EKG was otherwise unremarkable. Recommendations --will give a dose of Lasix 120 milligram IV x1 dose and watch for next 2 hours for any improvement in urine output and repeat renal panel and electrolyte. -- Will order serological study and paraproteinemia workup -- avoid all non emergency medications --Stop IV fluid --may need to start her on emergency dialysis in next few hours if her volume status worsen or electrolyte worsen -- discussed in detail with the patient and wished patient verbalized understanding --although PE seems less likely, may consider LE doppler to evaluate for DVT. Just discussed with Dr. winchester now and patient's nurse to get up date, after she received Lasix 120 she made only 100 mL of urine, continues to feel short of breath. will set up her to get a catheter this afternoon and will do dialysis once she gets the catheter. Thank you for allowing me to participate in your patient's care. It was a pleasure to see Jamee This chart was completed utilizing [employer] Speech and voice recognition software. Grammatical errors, random word insertions, pronoun errors and incomplete sentences are occasional consequences of this system. Any questions or concerns about the content, text or information contained within the body of this dictation should be addressed directly to the physician for clarification.
[2017-02-13 12:50] LABS: URINE APPEARANCE CLOUDY (CLEAR); URINE BILIRUBIN NEG (NEG); URINE COLOR YELLOW; URINE EPITHELIAL CELL AUTO >30 /lpf (0-5); URINE NITRITE NEG (NEG); URINE SPECIFIC GRAVITY 1.011 (1.000-1.030); UROBILINOGEN NEG (NEG)
[2017-02-13 13:23] LABS: MANUAL MICROSCOPIC REQUIRED? NO; REVIEW REQ? YES
[2017-02-13 13:39] LABS: C-REACTIVE PROTEIN 5.4 mg/dl (0-0.29); FERRITIN 100.7 ng/ml (8.0-388.0)
--- NOTE | 2017-02-13 13:54 | DIAGNOSTIC IMAGING REPORT ---
BILATERAL LOWER EXTREMITY VENOUS DOPPLER CLINICAL HISTORY: Evaluate for deep venous thrombus. Rhabdomyolysis. COMPARISON STUDY: No previous studies for comparison. TECHNIQUE: Sonography of the deep venous system of the bilateral lower extremities was performed. Compression and augmentation were evaluated. FINDINGS: The bilateral common femoral, superficial femoral and popliteal veins were compressible. Augmentation was normal. Flow was shown within the deep calf vessels. Note was made of a 5.9 x 5.7 x 2.7 cm complex cystic abnormality within the left popliteal fossa. This appears to have multiple thickened septations and a possible associated solid component. IMPRESSION: 1. No evidence of deep venous thrombus within the bilateral lower extremities. 2. 5.9 x 5.7 x 2.7 cm complex cystic abnormality within left popliteal fossa which contains thick septations and possible solid component. Statistically, this represents a complex popliteal cyst however a cystic mass could appear similar. Short-term follow-up ultrasound in 3 months is recommended. Electronically signed by: Mango Garcia M.D. 02/13/2017 1:53 PM Dictated Date/Time: 02/13/2017 1:51 PM
[2017-02-13 13:58] LABS: URINE PROTIEN/CREAT RATIO 7.8 (0-0.2); URINE TOTAL PROTEIN 194.5 mg/dl (0-11.9)
[2017-02-13 14:03] LABS: BUN/CREATININE RATIO 6.3 (10-20); CALCIUM 8.9 mg/dl (8.5-10.1); PHOSPHORUS 6.9 mg/dl (2.5-4.9); POTASSIUM 5.5 mmol/L (3.5-5.1)
--- NOTE | 2017-02-13 14:05 | Progress Note ---
Progress Note Date of Service Feb 13, 2017. Progress Note Patient was seen, examined, and chart reviewed. Agree with exam and treatment plan of the Vascular PA. I have discussed the risks options and benefits of the procedure with the patient. The patient understands the risks options and benefits and agrees to the procedure.
--- NOTE | 2017-02-13 14:08 | Surgery Consultation ---
Consultation Date of Service Feb 13, 2017. Chief Complaint ARF, need catheter for HD History of Present Illness The patient is a 36 year old female with HTN and DMII, seen in consultation for insertion of temporary catheter for HD d/t acute renal failure which developed over past 2 days. Pt admits fatigue, malaise, SOB, decreased urination. Denies PITTMAN, fever, chills, chest pain, abd pain, N/V, rest pain, claudication, other complaints. Vitals Vital Signs Past 12 Hours Date Time Temp Pulse Resp B/P (MAP) Pulse Ox O2 Delivery O2 Flow Rate FiO2 02/13/17 12:18 36.7 83 40 187/127 (147) 95 Room Air 02/13/17 12:11 178/112 (134) 02/13/17 10:02 210/78 (122) 02/13/17 09:42 84 202/116 (144) 97 02/13/17 09:13 76 191/125 (147) 02/13/17 09:09 87 201/139 (159) 02/13/17 08:58 73 200/131 (154) 02/13/17 08:38 73 30 194/109 (137) 02/13/17 08:13 75 26 196/116 (142) 96 Room Air 02/13/17 08:08 72 34 204/132 (156) 96 Room Air 02/13/17 08:06 36.5 73 28 187/126 (146) 97 Room Air Allergies Coded Allergies: Aspirin (Verified Allergy, Intermediate, SWELLING, 11/21/09) Iodine (Verified Allergy, Unknown, SHELLFISH, 11/16/09) Salicylates (Verified Allergy, Unknown, ?, 11/16/09) Home Medications Scheduled Dulaglutide (Trulicity), 0.75 MG SQ WK Metformin Hcl (Glucophage), 1,000 MG PO BID Pravastatin Sod (Pravastatin Sodium), 10 MG PO DAILY Sertraline (Zoloft), 50 MG PO DAILY Problem List Medical Problems: (1) Acute kidney injury (2) Anemia (3) Anuria (4) Hyperkalemia, diminished renal excretion (5) Increased anion gap metabolic acidosis (6) Rhabdomyolysis Surgical / Medical History HX Other Surgery: Yes Past Medical/Surgical History: Diabetes, High Cholesterol Family History + for DMII Social History Smoking Status: Never Smoker Hx Alcohol Use - Type & Amnt: No Hx Substance Use -Type & Amnt: No Review of Systems Constitutional: + malaise, No chills, No fever Skin: No change in color Eyes: No visual changes ENMT: No sore throat Respiratory: + ANDERSON, + orthopnea, + short of breath, No cough, No hemoptysis Cardiovascular: No chest pain, No chest pressure, No palpitations, No syncope Gastrointestinal: No abdominal pain, No nausea, No vomiting Genitourinary - Female: + problem reported (significantly decreased urination) Neurologic: + weakness, + lethargy, No dizziness, No headache Physical Exam Constitutional: General Apperance: well-nourished, well-developed, obese Level of Distress: NAD, acutely ill Ambulation: ambulating normally Psychiatric: Mental Status: active & alert, normal mood, normal affect Orientation: oriented except where noted, to time, to place, to person Memory: recent memory normal, remote memory normal Head: normocephalic, atraumatic Eyes: EOM: EOMI ENMT: normal ENT inspection, hearing grossly normal Neck: supple, trachea midline Lungs: Respiratory effort: no dyspnea Auscultation: no wheezing, no rhonchi, decreased breath sounds Cardiovascular: Apical Impulse: not displaced Heart Auscultation: RRR, no rubs, no gallops Peripheral Pulses: Pulses: full and equal, in all extremities except if noted Bruits: none appreciated Carotid Pulse: normal on the left, normal on the right Brachial Pulses: normal on the left, normal on the right Radial Pulse: normal on the left, normal on the right Femoral Pulse: normal on the left, normal on the right Posterior Tibialis Pulse: normal on the left, normal on the right Dorsalis Pedis Pulse: normal on the left, normal on the right Abdomen: Bowel Sounds: normal Inspection & Palpation: soft, non-distended, no tenderness, guarding & rebound Musculoskeletal: normal strength (5/5 throughout), normal tone Extremities: Upper Right: no cyanosis, no varicosities, edema Upper Left: no cyanosis, no varicosities, edema Lower Right: no cyanosis, no varicosities, no palpable cord, edema Lower Left: no cyanosis, no varicosities, no palpable cord, edema Neurologic: Cranial Nerves: grossly intact Sensation: grossly intact Assessment and Plan ASSESSMENT and PLAN: ARF Pt for temporary femoral dialysis catheter insertion presently. Probable permcath insertion later this week. Procedure, risks, benefits, and alternatives discussed with pt, she expresses understanding and agreement.
--- NOTE | 2017-02-13 14:26 | [facility] Post Operative Brief Note ---
Immediate Operative Summary Operative Date Feb 13, 2017. Pre-Operative Diagnosis Acute renal failure Post-Operative Diagnosis Same Procedure(s) Performed Insertion of right femoral non tunneled dialysis catheter Surgeon Donny Proofer [employer] Surgeon(s) Jocelyn Hartman MD Estimated Blood Loss 0 Findings aspirates and flushes easily Specimens none Anesthesia Local Complication(s) None Disposition
[2017-02-13 14:55] LABS: HEPATITIS B AB NEG
--- NOTE | 2017-02-13 15:48 | [facility] Operative Report ---
Operative Report Operative Date Feb 13, 2017. Pre-Operative Diagnosis Acute renal failure Post-Operative Diagnosis Acute renal failure Procedure(s) Performed Ultrasound guided right femoral non-tunneled HD catheter Surgeon Dr. Zain Hines [employer] Of State Surgeon(s) Dr. Jocelyn Hartman MD Estimated Blood Loss 0 Findings Adequate right common femoral vein. Vein is easily compressible under ultrasound. Specimens none Drains Right femoral HD catheter Anesthesia Local Complication(s) None Disposition hospital room Indications Ms. Jamee Smith is a 36 year old female with HTN and DMII, who developed acute renal failure over the past 2 days. Vascular surgery was consulted for placement of a temporary hemodialysis catheter. The risks benefits and alternatives were discussed with the patient and she consented to the procedure. Description of Procedure The procedure was conducted and the patient's hospital room. Ultrasound was used to assess the right common femoral vein which appeared to be large and patent. It was easily compressible. A timeout was performed and the patient and procedure were correctly identified. The right groin was prepped and draped in the usual sterile fashion. Ultrasound was again used to identify the right common femoral vein. Local anesthesia was used to anesthetize the skin overlying the right common femoral vein. An 18-gauge excess needle was used to access the right common femoral vein under ultrasound guidance. A guidewire was placed through the excess needle. The blade scalpel was used to make a small skin neck over the needle. The needle was removed and a dilator placed to dilate the tract. The dilator was removed over the wire and the 20 cm hemodialysis catheter was placed over the wire into the right common femoral vein. Both ports easily aspirated dark venous blood and flushed easily. The catheter was secured to the skin using nylon suture. Sterile dressing was applied. Both ports were again flushed with saline. Patient tolerated the procedure well and there are no immediate complications. Dr. Zain Hines was present for the entire procedure. I, Dr. Hines was present and scrubed for the entire procedure. I attest to the content of the Intraoperative Record and any orders documented therein. Any exceptions are noted below.
[2017-02-13] MEDS ORDERED: INSULIN GLARGINE SOLOSTAR 100 UNITS/ML 3 ML PEN SC SCH (17:30)
--- NOTE | 2017-02-13 17:32 | Progress Note ---
Subjective Date of Service: Feb 13, 2017. Subjective Pt evaluation today including: conversation w/ patient, conversation w/ family , physical exam, chart review, lab review, review of studies, conversation w/ [employer] consultant, review of inpatient medication list pt seen multiple, multiple times today d/w nursing repeatedly and extensively d/w nephrology multiple times updated pt and multiple times additional time spent reviewing medical literature this AM - more sob, mild but clearly progressive, more sweaty. generally feels lousy but can't really specifically say what is lousy - even with sl sob not really a dominant part of why she feels lousy. later in the day clearly feeing more sob, HPI more limited due to sob, but no other acute feelings. after that during HD - breathing easing, sweaty/clammy settling, overall feeling more at rest and comfortable. all other ROS otherwise negative except for as above Review of Systems Constitutional: No fever, No chills, No sweats Respiratory: + see HPI, + shortness of breath Musculoskeletal: + muscle pain (general myalgias still present) all other ROS otherwise negative except for as above Objective Vital Signs Date Time Temp Pulse Resp B/P (MAP) Pulse Ox O2 Delivery O2 Flow Rate FiO2 02/13/17 16:00 98 BiPAP 02/13/17 15:35 100 99 40 02/13/17 15:23 36.8 86 24 249/127 (167) 94 Nasal Cannula 2.0 02/13/17 15:00 36.8 86 24 94 2.0 02/13/17 12:18 36.7 83 40 187/127 (147) 95 Room Air 02/13/17 12:11 178/112 (134) 02/13/17 10:02 210/78 (122) 02/13/17 09:42 84 202/116 (144) 97 02/13/17 09:13 76 191/125 (147) 02/13/17 09:09 87 201/139 (159) 02/13/17 08:58 73 200/131 (154) 02/13/17 08:38 73 30 194/109 (137) 02/13/17 08:30 Room Air 02/13/17 08:13 75 26 196/116 (142) 96 Room Air 02/13/17 08:08 72 34 204/132 (156) 96 Room Air 02/13/17 08:06 36.5 73 28 187/126 (146) 97 Room Air 02/13/17 00:22 159/98 (118) 02/13/17 00:15 Room Air 02/12/17 23:57 168/101 (123) 02/12/17 23:35 36.7 71 18 179/101 (127) 94 Room Air 02/12/17 20:58 70 166/100 (122) Physical Exam General Appearance: + pertinent finding (first visit mild distress, second visit fairly severe distress, watched almost continuously during dialysis from just outside room - as HD progressed, far less distress breathing less labored appearing more comfortable and less diaphoretic) Respiratory/Chest: + pertinent finding (early in the day questionable faint rales, by mid day clearly present diffuse rales no r/w good effort mild accessory muscles, later in the day breathing unlabored no accessory muscles) Cardiovascular: regular rate, rhythm Extremities: normal range of motion 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, alert, normal mood/affect Skin: normal color, warm/dry (sl pallor and diaphoresis mid day visit that cleared by the time she was having HD) Laboratory Results Last 24 Hours Test 02/12/17 20:30 02/13/17 00:00 02/13/17 08:04 02/13/17 08:13 Bedside Glucose 98 mg/dl 108 mg/dl Urine Color YELLOW Urine Appearance CLOUDY Urine pH 7.0 Urine Specific [place] 1.011 Urine Protein 3+ Urine Glucose (UA) TRACE Urine Ketones NEG Urine Occult Blood 3+ Urine Nitrite NEG Urine Bilirubin NEG Urine Urobilinogen NEG Urine Leukocyte Esterase MODERATE Urine WBC (Auto) >30 /hpf Urine RBC (Auto) 10-30 /hpf Urine Hyaline Casts (Auto) 1-5 /lpf Urine Epithelial Cells (Auto) >30 /lpf Urine Bacteria (Auto) NEG Urine Pathogenic Casts See comments /lpf Urine Yeast (Auto) Urine Random Creatinine 25.0 mg/dl Urine Random Total Protein 194.5 mg/dl Urine Protein/Creatinine Ratio 7.8 Sodium Level 130 mmol/L Potassium Level 5.5 mmol/L Chloride Level 102 mmol/L Carbon Dioxide Level 11 mmol/L Anion Gap 17.0 mmol/L Blood Urea Nitrogen 85 mg/dl Creatinine 14.00 mg/dl Est Creatinine Clear Calc Drug Dose 6.4 ml/min Estimated GFR () 3.4 Estimated GFR (Non- 2.9 BUN/Creatinine Ratio 6.1 Random Glucose 99 mg/dl Calcium Level 8.7 mg/dl Total Bilirubin 0.4 mg/dl Aspartate Amino Transf (AST/SGOT) 64 U/L Alanine Aminotransferase (ALT/SGPT) 196 U/L Alkaline Phosphatase 59 U/L Total Protein 7.2 gm/dl Albumin 2.9 gm/dl Globulin 4.3 gm/dl Albumin/Globulin Ratio 0.7 Test 02/13/17 12:47 02/13/17 12:49 02/13/17 16:18 Erythrocyte Sedimentation Rate 66 mm/hr Sodium Level 128 mmol/L Potassium Level 5.5 mmol/L Chloride Level 101 mmol/L Carbon Dioxide Level 10 mmol/L Anion Gap 17.0 mmol/L Blood Urea Nitrogen 88 mg/dl Creatinine 14.00 mg/dl Est Creatinine Clear Calc Drug Dose 6.4 ml/min Estimated GFR () 3.4 Estimated GFR (Non- 2.9 BUN/Creatinine Ratio 6.3 Random Glucose 119 mg/dl Calcium Level 8.9 mg/dl Phosphorus Level 6.9 mg/dl Iron Level 70 mcg/dl Total Iron Binding Capacity 278 mcg/dl Transferrin 208 mg/dl Transferrin % Saturation 24 % Ferritin 100.7 ng/ml C-Reactive Protein 5.40 mg/dl Albumin 2.7 gm/dl 25-Hydroxy Vitamin D Total 21.0 ng/ml Hepatitis B Surface Antigen NEG Hepatitis B Surface Antibody NEG Bedside Glucose 146 mg/dl Assessment and Plan ARF -with hindsight, and with CPK not continuing to rise, highly doubt that rhabdo is the cause -while rare, seems more likely that trulicty ADR may be culprit, with dehydration and ?mild rhabdo causing a degree of overlay -renal US without obstruction -on review of literature - appears the GLP1 mediated renal failure either falls into a prerenal --> ATN situation (nausea/vomiting/diarrhea from the med leads to volume depletion - clearly not the case with her) or there are far more rare but noted cases of interstitial nephritis (which actually could fit the scenario ) -- repeat UA noted ongoing red and white cells and some red cell casts; check urine eosinophils to help with clarity -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 (autoimmune type labs sent by nephrology earlier) -possible that she may need a renal biopsy in the near future if etiology remains unclear or she fails to improve w empiric treatment, but hopefully this will not be necessary -d/w nephro and no contraindications from either of our perspectives for empiric steroids for possible AIN --> methylprednisolone 500mg daily x 3 days (d /w pt and as well - anticipate sugars elevating but will dynamically adjust insulins) -acute HD today due to electrolyte disturbances and worsening pulmonary edema picture acute hypoxic respiratory failure due to acute pulmonary edema -for clarification purposes - NOT a CHF picture; due to oliguric/near anuric renal failure not cardiac cause -bipap --> HD, supportive care -by the end of HD treatment today looking much more stable and comfortable in this regard metabolic acidosis, hyponatremia, and hyperkalemia -from ARF - further underscoring the need for acute HD today - done. follow BMP Elevated LFT's - multiple possibilities - has fatty liver, statin possible culprit, maybe small effects from rhabdo - statin held - repeat CMP showing downward trend T2DM - tighten novolog supplemental and carb ratio - with steroids will start lantus at 5 now and anticipate a need for rapid escalation - continue to follow sugars - holding metformin and trulicity - most recent A1c 6.7 Depression - continue zoloft HTN - marked elevation due to ARF/anuria - added amlodipine - didn't tolerate prn hydralazine well, will dc - improving w HD DVT Prophylaxis - heparin subq hypocalcemia - vitamin D somewhat low at 21 - replace literature discussing GLP1 mediated renal failure (of course, almost all references are to exanatide since it has been out much longer): https://www.ncbi.nlm.nih.gov/pmc/articles/BPR3420853/ ---> section specific to renal side effects most helpful in this article https://www.ncbi.nlm.nih.gov/pmc/articles/GIF4348894/ --> discusses findings similar to above, appears to maybe even reference the same cases, but again reiterates finding that appear to help in discerning etiology for her if, in fact, related to GLP1 UpToDate article reviewed but nothing that appeared specific enough to pertain to her situation, references appear to be to the above articles anyway >30mins in critical care time managing hypoxia/pulmonary edema situation and ensuring stability during initial HD due to acuity of her decompensation. far more time spent reviewing literature, discussing with nephrology, and formulating plan
[2017-02-13] MEDS: METHYLPREDNISOLONE IV 500 MG in DEXTROSE 5% 250ML 250 ML IV SCH (22:14)
[2017-02-13] MEDS: ACETAMINOPHEN 325 MG TAB PO PRN (22:18)
[2017-02-14] VITALS (30 sets, daily range): BP systolic 135–187; BP diastolic 82–121; PULSE 73–87; TEMP 36.6–37.1; O2SAT 95–97
[2017-02-14] MEDS ORDERED: NURSING VERBAL MED ORDER ONE ×4 (04:00→20:15)
[2017-02-14] MEDS ORDERED: LORAZEPAM 2 MG/ML 1 ML VIAL ONE (04:11)
[2017-02-14 06:28] LABS: HEMATOCRIT 34.6 % (37-47); MEAN CELL VOLUME 86.5 fL (80-100); MEAN CORPUSCULAR HEMOGLOBIN 30.3 pg (25-34); MEAN PLATELET VOLUME 8.4 fL (7.4-10.4); PLATELET COUNT 152 K/uL (130-400); WHITE BLOOD COUNT 11.01 K/uL (4.8-10.8)
[2017-02-14 06:49] LABS: CALCIUM 8.4 mg/dl (8.5-10.1)
[2017-02-14] MEDS: INSULIN ASPART 100 UNITS/ML 3 ML PEN SC SCH ×4 (07:34→21:31)
[2017-02-14] MEDS: CHOLECALCIFEROL 1000 INTER.UNIT TAB PO SCH (07:36)
[2017-02-14 07:38] LABS: BUN/CREATININE RATIO 6.9 (10-20); POTASSIUM 4.5 mmol/L (3.5-5.1)
[2017-02-14] MEDS: METOPROLOL TARTRATE 25 MG TAB PO SCH ×2 (08:08→21:30)
[2017-02-14] MEDS: AMLODIPINE BESYLATE 5 MG TAB PO SCH (08:08)
[2017-02-14] MEDS ORDERED: INSULIN GLARGINE SOLOSTAR 100 UNITS/ML 3 ML PEN SC SCH (09:00)
[2017-02-14 09:23] LABS: PHOSPHORUS 7.6 mg/dl (2.5-4.9)
[2017-02-14] MEDS ORDERED: HEPARIN SOD (PORCINE) 5000 UNIT/ML 1 ML VIAL IV SCH (10:00)
[2017-02-14] MEDS: HEPARIN SOD 5000 UNIT/0.5 ML CARP SQ SCH ×2 (10:00→21:31)
[2017-02-14] MEDS: HEPARIN SOD (PORCINE) 5000 UNIT/ML 1 ML VIAL IV SCH ×6 (10:30→14:51)
--- NOTE | 2017-02-14 11:52 | Nephrology Progress Note ---
Nephrology Progress Note Date of Service Feb 14, 2017. Chief Complaint Evaluation and management for acute kidney injury, anuria, hyperkalemia and gap metabolic acidosis. Jennifer German was seen and examined this morning. Her shortness of breath resolved, denies chest pain, palpitation, anorexia nausea. Blood pressure still running high but improve significantly. Still oligoanuric, made only 250 mL over last 24 hours. tolerated dialysis yesterday for 4 hours, had 2 liters UF. Review of Systems A complete review of systems was performed. Pertinent positives are noted above. All other systems are negative. Vital Signs Last 8 Hrs Date Time Temp Pulse Resp B/P (MAP) Pulse Ox O2 Delivery O2 Flow Rate FiO2 02/14/17 07:35 36.8 81 20 186/121 (142) 97 Room Air 187/112 (137) 02/14/17 04:00 95 Room Air 02/14/17 04:00 36.7 77 18 170/96 (120) 97 Room Air 02/14/17 01:17 77 161/82 (108) Last Recorded Weight Weight (Kilograms): 111.900 Physical Exam GENERAL: Young female, AAA x 3, pleasant, ill-appearing, not in any distress. NECK: Supple, no JVD. RESPIRATORY: Normal breathing efforts, no accessory muscle use, clear to auscultation bilaterally, no wheezes or rales. CARDIOVASCULAR: S1, S2 normal, rate rhythm regular. EXTREMITY: No lower extremity edema NEURO: speech fluent. PSYCHIATRY: Normal mood and judgment Family History No h/o CKD, ESRD Social History Alcohol Use: occasionally Drug Use: none Housing Status: lives with family Laboratory Results Past 24 Hours 02/14/17 05:52 02/13/17 12:47 02/14/17 05:52 Test 02/13/17 11:58 02/13/17 12:47 02/13/17 12:49 02/13/17 16:18 Bedside Glucose 125 mg/dl (70-90) 146 mg/dl (70-90) Erythrocyte Sedimentation Rate 66 mm/hr (0-21) Anion Gap 17.0 mmol/L (3-11) Est Creatinine Clear Calc Drug Dose 6.4 ml/min Estimated GFR () 3.4 Estimated GFR (Non- 2.9 BUN/Creatinine Ratio 6.3 (10-20) Calcium Level 8.9 mg/dl (8.5-10.1) Phosphorus Level 6.9 mg/dl (2.5-4.9) Iron Level 70 mcg/dl (35-150) Total Iron Binding Capacity 278 mcg/dl (250-450) Transferrin 208 mg/dl (200-360) Transferrin % Saturation 24 % (15-50) Ferritin 100.7 ng/ml (8.0-388.0) C-Reactive Protein 5.40 mg/dl (0-0.29) Albumin 2.7 gm/dl (3.4-5.0) 25-Hydroxy Vitamin D Total 21.0 ng/ml (30-100) Hepatitis B Surface Antigen NEG (NEG) Hepatitis B Surface Antibody NEG Test 02/13/17 20:09 02/13/17 22:08 02/14/17 01:18 02/14/17 05:52 Bedside Glucose 133 mg/dl (70-90) 124 mg/dl (70-90) Red Blood Count 4.00 M/uL (4.2-5.4) Mean Corpuscular Volume 86.5 fL (80-100) Mean Corpuscular Hemoglobin 30.3 pg (25-34) Mean Corpuscular Hemoglobin Concent 35.0 g/dl (32-36) RDW Standard Deviation 40.6 fL (36.4-46.3) RDW Coefficient of Variation 12.6 % (11.5-14.5) Mean Platelet Volume 8.4 fL (7.4-10.4) Anion Gap 18.0 mmol/L (3-11) Est Creatinine Clear Calc Drug Dose 8.5 ml/min Estimated GFR () 4.6 Estimated GFR (Non- 3.9 BUN/Creatinine Ratio 6.9 (10-20) Calcium Level 8.4 mg/dl (8.5-10.1) Total Creatine Kinase 1068 U/L (26-192) Albumin 2.8 gm/dl (3.4-5.0) Test 02/14/17 06:25 Bedside Glucose 184 mg/dl (70-90) Date/Time Source Procedure Growth Status 02/14/17 01:13 Nasal MRSA DNA Surveillance Screen - Final Specimen Negative for MRSA by DNA Probe Complete Allergies Coded Allergies: Aspirin (Verified Allergy, Intermediate, SWELLING, 11/21/09) Iodine (Verified Allergy, Unknown, SHELLFISH, 11/16/09) Salicylates (Verified Allergy, Unknown, ?, 11/16/09) Medications Current Inpatient Medications Medications (Trade) Dose Ordered Sig/Xiang Route Start Time Stop Time Status Last Admin Dose Admin Acetaminophen (Tylenol Tab) 650 mg Q4H PRN PO 02/11/17 20:00 03/13/17 19:59 02/13/17 22:18 650 MG Al Hydrox/Mg Hydrox/Simethicone (Maalox Max Susp) 15 ml Q4H PRN PO 02/11/17 20:00 03/13/17 19:59 Magnesium Hydroxide (Milk Of Magnesia Susp) 30 ml Q6H PRN PO 02/11/17 20:00 03/13/17 19:59 Polyethylene (Miralax Powder Packet) 17 gm DAILY PRN PO 02/11/17 20:30 03/13/17 20:29 Ondansetron HCl (Zofran Inj) 4 mg Q6H PRN IV 02/11/17 20:00 03/13/17 19:59 Insulin Aspart (novoLOG ASPART) SLIDING SCALE G... ACHS SC 02/11/17 22:00 03/13/17 21:59 02/14/17 07:34 8 UNITS Heparin Sodium (Porcine) (Heparin Sq 5000 Unit/0.5ml) 5,000 unit Q12H SQ 02/11/17 22:00 03/13/17 21:59 02/13/17 22:14 5,000 UNIT Glucose (Glucose 40% Gel) 15-30 GRAMS 15 GRAMS... UD PRN PO 02/11/17 20:30 03/13/17 20:29 Glucose (Glucose Chew Tab) 4-8 Tablets 4 Tabl... UD PRN PO 02/11/17 20:30 03/13/17 20:29 Dextrose (Dextrose 50% 50ML Syringe) 25-50ML OF 50% DW IV FOR... UD PRN IV 02/11/17 20:30 03/13/17 20:29 Glucagon (Glucagon Inj) 1 mg UD PRN SQ 02/11/17 20:30 03/13/17 20:29 Metoprolol Tartrate (Lopressor Tab) 75 mg BID PO 02/12/17 21:00 03/14/17 08:59 02/14/17 08:08 75 MG Temazepam (Restoril Cap) 7.5 mg HS PRN PO 02/12/17 19:00 03/14/17 18:59 02/12/17 21:04 7.5 MG Amlodipine Besylate (Norvasc Tab) 10 mg QAM PO 02/14/17 09:00 03/16/17 08:59 02/14/17 08:08 10 MG Methylprednisolone Sodium Succinate 500 mg/Dextrose 258 ml @ 250 mls/hr Q24H IV 02/13/17 18:00 02/15/17 19:02 02/13/17 22:14 250 MLS/HR Insulin Glargine (Lantus Solostar Pen) 5 unit DAILY SC 02/14/17 09:00 03/16/17 08:59 02/14/17 07:35 5 UNIT Cholecalciferol (Vitamin D Tab) 3,000 inter.unit QAM PO 02/14/17 09:00 03/16/17 08:59 02/14/17 07:36 3,000 INTER.UNIT Impression (1) Acute kidney injury (2) Anuria (3) Hyperkalemia, diminished renal excretion (4) Increased anion gap metabolic acidosis (5) Anemia Jamee is a 36-year-old female with baseline decent renal function, proteinuria , diabetes admitted to the hospital with 4 day history of via nausea, fatigue and two-day history of via oliguria/anuria found to have acute kidney injury, gap metabolic acidosis and hyperkalemia. Past medical history only significant for diabetes with proteinuria and has been on metformin and recently started on trulicity. was on pravastatin which was discontinued, CPK was 8000 on admission which dropped to 4000. Baseline creatinine has been 1-1.3, on admission creatinine was 12 which worsened to 40 in this morning, has potassium 5.5 and metabolic acidosis, bicarb currently dropped to 11.. She has been oliguric anuric, has been on IV fluid and currently seems to be volume overloaded and getting symptomatic with significant shortness of breath. Acidosis has been worsening.. Unclear etiology for acute kidney injury, possibility for RADHA with Trulicity remains, however with her systemic symptoms for last 5 days, there is concern for acute GN. Renal ultrasound was unremarkable. Although ATN from volume depletion or rhabdomyolysis is a possibility however with CPK only in 8000 would not expect this dense ATN. CPK decreased to 1000. DVT study negative.. EKG was otherwise unremarkable. Recommendations --started on methylprednisone 500 milligram daily for 3 dose, 1st dose was yesterday, due to concern for AIN from Trulicity versus acute GN -- pending serological study and paraproteinemia workup -- start on PhosLo 1 tablet with each meal -- start nephrocaps -- avoid all nephrotoxicity and non emergency medications --no sign of renal recovery yet, will request vascular surgery to take the femoral catheter out and plays day tunnel dialysis catheter tomorrow. Explained that at it may take weeks for renal function to recover -- discussed in detail with the patient and wished patient verbalized understanding will follow
--- NOTE | 2017-02-14 12:50 | Progress Note ---
Subjective Date of Service: Feb 14, 2017. Subjective Pt evaluation today including: conversation w/ patient, physical exam, chart review, lab review, review of inpatient medication list feeling better -- no sob no diaphoresis. still not much UO. for HD again today. appearing fairly flat in affect but expresses understanding of dx and plans and all of her questions were answered to the best of my ability and to her satisfaction Review of Systems all other ROS otherwise negative except for as above Objective Vital Signs Date Time Temp Pulse Resp B/P (MAP) Pulse Ox O2 Delivery O2 Flow Rate FiO2 02/14/17 12:00 74 154/108 02/14/17 11:45 76 160/107 02/14/17 11:30 76 164/107 02/14/17 11:15 75 164/108 02/14/17 11:00 76 160/107 02/14/17 10:45 75 163/106 02/14/17 10:30 77 165/106 02/14/17 09:51 37.0 79 187/116 (139) 02/14/17 09:45 77 185/118 02/14/17 09:40 79 176/117 02/14/17 08:00 Room Air 02/14/17 07:35 36.8 81 20 186/121 (142) 97 Room Air 187/112 (137) 02/14/17 04:00 95 Room Air 02/14/17 04:00 36.7 77 18 170/96 (120) 97 Room Air 02/14/17 01:17 77 161/82 (108) 02/14/17 00:00 36.6 80 18 172/99 (123) 97 Room Air 02/13/17 23:59 96 Room Air 02/13/17 22:36 36.9 85 152/103 (119) 02/13/17 22:09 83 152/103 (119) 02/13/17 21:30 80 161/97 02/13/17 21:15 81 161/112 02/13/17 21:00 80 169/107 02/13/17 20:45 79 163/116 02/13/17 20:30 80 166/126 02/13/17 20:15 81 157/108 02/13/17 20:00 81 167/109 02/13/17 20:00 97 Room Air 02/13/17 19:45 79 163/106 02/13/17 19:37 83 161/96 02/13/17 19:07 36.5 82 25 169/101 (123) 97 Room Air 02/13/17 18:30 83 166/102 02/13/17 18:15 81 149/92 02/13/17 18:00 84 166/97 02/13/17 17:45 83 166/100 02/13/17 17:30 81 165/98 02/13/17 17:15 79 168/104 02/13/17 17:00 80 119/101 02/13/17 16:52 36.7 87 165/119 (134) 02/13/17 16:45 82 174/132 02/13/17 16:35 87 119/117 02/13/17 16:00 98 BiPAP 02/13/17 15:35 100 99 40 02/13/17 15:23 36.8 86 24 249/127 (167) 94 Nasal Cannula 2.0 02/13/17 15:00 36.8 86 24 94 2.0 Physical Exam General Appearance: no apparent distress Eyes: EOMI ENT: hearing grossly normal Neck: trachea midline Respiratory/Chest: lungs clear, normal breath sounds, no respiratory distress, no accessory muscle use Cardiovascular: regular rate, rhythm Extremities: normal range of motion 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, alert, normal mood/affect Laboratory Results Last 24 Hours Test 02/13/17 12:47 02/13/17 12:49 02/13/17 16:18 02/13/17 20:09 Erythrocyte Sedimentation Rate 66 mm/hr Sodium Level 128 mmol/L Potassium Level 5.5 mmol/L Chloride Level 101 mmol/L Carbon Dioxide Level 10 mmol/L Anion Gap 17.0 mmol/L Blood Urea Nitrogen 88 mg/dl Creatinine 14.00 mg/dl Est Creatinine Clear Calc Drug Dose 6.4 ml/min Estimated GFR () 3.4 Estimated GFR (Non- 2.9 BUN/Creatinine Ratio 6.3 Random Glucose 119 mg/dl Calcium Level 8.9 mg/dl Phosphorus Level 6.9 mg/dl Iron Level 70 mcg/dl Total Iron Binding Capacity 278 mcg/dl Transferrin 208 mg/dl Transferrin % Saturation 24 % Ferritin 100.7 ng/ml C-Reactive Protein 5.40 mg/dl Albumin 2.7 gm/dl 25-Hydroxy Vitamin D Total 21.0 ng/ml Hepatitis B Surface Antigen NEG Hepatitis B Surface Antibody NEG Bedside Glucose 146 mg/dl 133 mg/dl Test 02/13/17 22:08 02/14/17 01:18 02/14/17 05:52 02/14/17 06:25 Bedside Glucose 124 mg/dl 184 mg/dl White Blood Count 11.01 K/uL Red Blood Count 4.00 M/uL Hemoglobin 12.1 g/dL Hematocrit 34.6 % Mean Corpuscular Volume 86.5 fL Mean Corpuscular Hemoglobin 30.3 pg Mean Corpuscular Hemoglobin Concent 35.0 g/dl RDW Standard Deviation 40.6 fL RDW Coefficient of Variation 12.6 % Platelet Count 152 K/uL Mean Platelet Volume 8.4 fL Sodium Level 129 mmol/L Potassium Level 4.5 mmol/L Chloride Level 94 mmol/L Carbon Dioxide Level 17 mmol/L Anion Gap 18.0 mmol/L Blood Urea Nitrogen 76 mg/dl Creatinine 11.00 mg/dl Est Creatinine Clear Calc Drug Dose 8.5 ml/min Estimated GFR () 4.6 Estimated GFR (Non- 3.9 BUN/Creatinine Ratio 6.9 Random Glucose 177 mg/dl Calcium Level 8.4 mg/dl Phosphorus Level 7.6 mg/dl Total Creatine Kinase 1068 U/L Albumin 2.8 gm/dl Assessment and Plan ARF -with hindsight, and with CPK not continuing to rise, highly doubt that rhabdo is the cause -while rare, seems more likely that trulicty ADR may be culprit, with dehydration and ?mild rhabdo causing a degree of overlay -renal US without obstruction -on review of literature - appears the GLP1 mediated renal failure either falls into a prerenal --> ATN situation (nausea/vomiting/diarrhea from the med leads to volume depletion - clearly not the case with her) or there are far more rare but noted cases of interstitial nephritis (which actually could fit the scenario ) -- repeat UA noted ongoing red and white cells and some red cell casts; awaiting urine eosinophils to help with clarity -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 (autoimmune type labs sent by nephrology earlier) -possible that she may need a renal biopsy in the near future if etiology remains unclear or she fails to improve w empiric treatment, but hopefully this will not be necessary -d/w nephro and no contraindications from either of our perspectives for empiric steroids for possible AIN --> methylprednisolone 500mg daily x 3 days (d /w pt and as well - anticipate sugars elevating but will dynamically adjust insulins) -acute HD again today due to electrolyte disturbances -pulmonary edema has improved acute hypoxic respiratory failure due to acute pulmonary edema -for clarification purposes - NOT a CHF picture; due to oliguric/near anuric renal failure not cardiac cause -improved w HD yesterday, now a resolved issue metabolic acidosis, hyponatremia, and hyperkalemia -from ARF -ongoing - HD again today Elevated LFT's - multiple possibilities - has fatty liver, statin possible culprit, maybe small effects from rhabdo - statin held - repeat CMP showing downward trend, follow periodically T2DM - right now w steroids using basal / bolus insulin, sugars have been acceptable - holding metformin and trulicity - most recent A1c 6.7 Depression - continue zoloft HTN - marked elevation was due to ARF/anuria - metoprolol, amlodipine, HD. numbers improving - didn't tolerate prn hydralazine well, will dc DVT Prophylaxis - heparin subq hypocalcemia - vitamin D somewhat low at 21 - replace PO literature discussing GLP1 mediated renal failure (of course, almost all references are to exanatide since it has been out much longer): https://www.ncbi.nlm.nih.gov/pmc/articles/XFD3129185/ ---> section specific to renal side effects most helpful in this article https://www.ncbi.nlm.nih.gov/pmc/articles/EBQ5649621/ --> discusses findings similar to above, appears to maybe even reference the same cases, but again reiterates finding that appear to help in discerning etiology for her if, in fact, related to GLP1 UpToDate article reviewed but nothing that appeared specific enough to pertain to her situation, references appear to be to the above articles anyway
[2017-02-14] MEDS: METHYLPREDNISOLONE IV 500 MG in DEXTROSE 5% 250ML 250 ML IV SCH (17:54)
[2017-02-14] MEDS ORDERED: LORAZEPAM 0.5 MG TAB PO PRN (20:15)
[2017-02-15] VITALS (36 sets, daily range): BP systolic 121–161; BP diastolic 76–101; PULSE 66–83; TEMP 36.6–37; O2SAT 93–98
[2017-02-15] MEDS ORDERED: NURSING VERBAL MED ORDER ONE ×4 (00:30→23:00)
[2017-02-15] MEDS ORDERED: LORAZEPAM INJ 0.5 MG in SYRINGE 0.75 ML IV ONE (01:15)
[2017-02-15] MEDS ORDERED: CEFAZOLIN 2000 MG/60 ML D5W 60 ML IV SCH (06:00)
[2017-02-15 07:38] LABS: CALCIUM 8.3 mg/dl (8.5-10.1)
[2017-02-15 07:46] LABS: BUN/CREATININE RATIO 8.1 (10-20); CREATININE 8.8 mg/dl (0.60-1.20); POTASSIUM 4.3 mmol/L (3.5-5.1)
--- NOTE | 2017-02-15 07:49 | Progress Note ---
Progress Note Date of Service Feb 15, 2017. Progress Note Patient for insertion of permcath today. I have discussed the risks options and benefits of the procedure with the patient. The patient understands the risks options and benefits and agrees to the procedure. I have examined the patient, reviewed the History & Physical and in the interval since the performance of the History & Physical I have noted the following changes of clinical significance: No changes noted
--- NOTE | 2017-02-15 07:50 | Procedure Note ---
Pre-Mod Sedation Assessment General Date of Moderate Sedation: Feb 15, 2017. Vital Signs: Vital Signs Past 12 Hours Date Time Temp Pulse Resp B/P (MAP) Pulse Ox O2 Delivery O2 Flow Rate FiO2 02/15/17 07:09 37.0 71 17 152/91 (111) 95 Room Air 02/15/17 00:15 Room Air 02/14/17 22:57 36.7 78 16 147/88 (107) 97 Room Air 02/14/17 21:34 82 135/87 (103) Pre-Sedation Airway Assessment Oral Cavity: Capped Teeth Smoking Status: Never Smoker Mallampati Classification: Class I ASA Classification: Class III Notes The planned sedation has been discussed with the patient and consent obtained. I have identified the patient, determined the appropriateness of sedation and have assessed the patient immediately prior to the procedure. All medicine(s) and interventions are by my order.
[2017-02-15] MEDS: HEPARIN SOD 5000 UNIT/0.5 ML CARP SQ SCH ×2 (09:01→21:59)
[2017-02-15] MEDS: AMLODIPINE BESYLATE 5 MG TAB PO SCH (09:03)
[2017-02-15] MEDS: CHOLECALCIFEROL 1000 INTER.UNIT TAB PO SCH (09:03)
[2017-02-15] MEDS: METOPROLOL TARTRATE 25 MG TAB PO SCH ×2 (09:04→21:07)
[2017-02-15] MEDS ORDERED: FENTANYL CITRATE INJ 50 MCG/1 ML 2 ML VIAL ONE (09:59)
[2017-02-15] MEDS ORDERED: HEPARIN SOD (PORCINE) 5000 UNIT/ML 1 ML VIAL ONE (09:59)
[2017-02-15] MEDS ORDERED: MIDAZOLAM HCL 1 MG/ML 2ML VIAL ONE (09:59)
[2017-02-15] MEDS: INSULIN GLARGINE SOLOSTAR 100 UNITS/ML 3 ML PEN SC SCH (10:10)
[2017-02-15] MEDS ORDERED: FENTANYL CITRATE INJ 50 MCG/1 ML 2 ML VIAL IV ONE (10:37)
[2017-02-15] MEDS ORDERED: MIDAZOLAM HCL 1 MG/ML 2ML VIAL IV ONE (10:37)
[2017-02-15] MEDS ORDERED: LIDOCAINE HCL 1% 20 ML VIAL SQ ONE (10:44)
[2017-02-15] MEDS ORDERED: HEPARIN SOD (PORCINE) 5000 UNIT/ML 1 ML VIAL IV ONE (10:44)
--- NOTE | 2017-02-15 10:54 | Nephrology Progress Note ---
Nephrology Progress Note Date of Service Feb 15, 2017. Chief Complaint Evaluation and management for acute kidney injury, anuria, hyperkalemia and gap metabolic acidosis. Jennifer German was seen and examined this morning. Her shortness of breath resolved, denies chest pain, palpitation, anorexia nausea. Blood pressure improve significantly. Still oliguric, made 500 mL over last 24 hours. tolerated dialysis yesterday for 4 hours, had 2 liters UF. Electrolytes improved. Review of Systems A complete review of systems was performed. Pertinent positives are noted above. All other systems are negative. Vital Signs Last 8 Hrs Date Time Temp Pulse Resp B/P (MAP) Pulse Ox O2 Delivery O2 Flow Rate FiO2 02/15/17 10:08 37.0 71 17 152/91 95 Room Air 02/15/17 10:05 36.7 70 20 157/97 (117) 97 Room Air 02/15/17 07:09 37.0 71 17 152/91 (111) 95 Room Air Last Recorded Weight Weight (Kilograms): 108.000 Physical Exam GENERAL: Young female, AAA x 3, pleasant, ill-appearing, not in any distress. NECK: Supple, no JVD. RESPIRATORY: Normal breathing efforts, no accessory muscle use, clear to auscultation bilaterally, no wheezes or rales. CARDIOVASCULAR: S1, S2 normal, rate rhythm regular. EXTREMITY: No lower extremity edema NEURO: speech fluent. PSYCHIATRY: Normal mood and judgment Family History No h/o CKD, ESRD Social History Alcohol Use: occasionally Drug Use: none Housing Status: lives with family Laboratory Results Past 24 Hours 02/15/17 06:15 Test 02/14/17 14:43 02/14/17 16:38 02/14/17 17:48 02/14/17 20:45 Bedside Glucose 131 mg/dl (70-90) 232 mg/dl (70-90) 191 mg/dl (70-90) 208 mg/dl (70-90) Test 02/15/17 06:15 02/15/17 08:12 02/15/17 10:20 Anion Gap 13.0 mmol/L (3-11) Est Creatinine Clear Calc Drug Dose 10.4 ml/min Estimated GFR () 6.0 Estimated GFR (Non- 5.2 BUN/Creatinine Ratio 8.1 (10-20) Calcium Level 8.3 mg/dl (8.5-10.1) Phosphorus Level 8.0 mg/dl (2.5-4.9) Albumin 2.9 gm/dl (3.4-5.0) Bedside Glucose 172 mg/dl (70-90) Allergies Coded Allergies: Aspirin (Verified Allergy, Intermediate, SWELLING, 11/21/09) Iodine (Verified Allergy, Unknown, SHELLFISH, 11/16/09) Salicylates (Verified Allergy, Unknown, ?, 11/16/09) Medications Current Inpatient Medications Medications (Trade) Dose Ordered Sig/Xiang Route Start Time Stop Time Status Last Admin Dose Admin Acetaminophen (Tylenol Tab) 650 mg Q4H PRN PO 02/11/17 20:00 03/13/17 19:59 02/13/17 22:18 650 MG Al Hydrox/Mg Hydrox/Simethicone (Maalox Max Susp) 15 ml Q4H PRN PO 02/11/17 20:00 03/13/17 19:59 Magnesium Hydroxide (Milk Of Magnesia Susp) 30 ml Q6H PRN PO 02/11/17 20:00 03/13/17 19:59 Polyethylene (Miralax Powder Packet) 17 gm DAILY PRN PO 02/11/17 20:30 03/13/17 20:29 Ondansetron HCl (Zofran Inj) 4 mg Q6H PRN IV 02/11/17 20:00 03/13/17 19:59 Heparin Sodium (Porcine) (Heparin Sq 5000 Unit/0.5ml) 5,000 unit Q12H SQ 02/11/17 22:00 03/13/17 21:59 02/15/17 09:01 5,000 UNIT Glucose (Glucose 40% Gel) 15-30 GRAMS 15 GRAMS... UD PRN PO 02/11/17 20:30 03/13/17 20:29 Glucose (Glucose Chew Tab) 4-8 Tablets 4 Tabl... UD PRN PO 02/11/17 20:30 03/13/17 20:29 Dextrose (Dextrose 50% 50ML Syringe) 25-50ML OF 50% DW IV FOR... UD PRN IV 02/11/17 20:30 03/13/17 20:29 Glucagon (Glucagon Inj) 1 mg UD PRN SQ 02/11/17 20:30 03/13/17 20:29 Metoprolol Tartrate (Lopressor Tab) 75 mg BID PO 02/12/17 21:00 03/14/17 08:59 02/15/17 09:04 75 MG Temazepam (Restoril Cap) 7.5 mg HS PRN PO 02/12/17 19:00 03/14/17 18:59 02/12/17 21:04 7.5 MG Amlodipine Besylate (Norvasc Tab) 10 mg QAM PO 02/14/17 09:00 03/16/17 08:59 02/15/17 09:03 10 MG Methylprednisolone Sodium Succinate 500 mg/Dextrose 258 ml @ 250 mls/hr Q24H IV 02/13/17 18:00 02/15/17 19:02 02/14/17 17:54 250 MLS/HR Cholecalciferol (Vitamin D Tab) 3,000 inter.unit QAM PO 02/14/17 09:00 03/16/17 08:59 02/15/17 09:03 3,000 INTER.UNIT Cefazolin Sodium 60 ml @ 100 mls/hr PREOP IV 02/15/17 06:00 02/15/17 18:00 Insulin Glargine (Lantus Solostar Pen) 7 units DAILY SC 02/15/17 09:00 03/16/17 08:59 Insulin Aspart (novoLOG ASPART) SLIDING SCALE G... Q6 SC 02/15/17 12:00 03/13/17 21:59 Impression (1) Acute kidney injury (2) Anuria (3) Hyperkalemia, diminished renal excretion (4) Increased anion gap metabolic acidosis (5) Anemia Jamee is a 36-year-old female with baseline decent renal function, proteinuria , diabetes admitted to the hospital with 4 day history of via nausea, fatigue and two-day history of via oliguria/anuria found to have acute kidney injury, gap metabolic acidosis and hyperkalemia. Past medical history only significant for diabetes with proteinuria and has been on metformin and recently started on trulicity. was on pravastatin which was discontinued, CPK was 8000 on admission which dropped to 4000. Baseline creatinine has been 1-1.3, on admission creatinine was 12 which worsened to 40 in this morning, has potassium 5.5 and metabolic acidosis, bicarb currently dropped to 11.. She has been oliguric anuric, has been on IV fluid and currently seems to be volume overloaded and getting symptomatic with significant shortness of breath. Acidosis has been worsening.. Unclear etiology for acute kidney injury, possibility for RADHA with Trulicity remains, however with her systemic symptoms for last 5 days, there is concern for acute GN. Renal ultrasound was unremarkable. Although ATN from volume depletion or rhabdomyolysis is a possibility however with CPK only in 8000 would not expect this dense ATN. CPK decreased to 1000. DVT study negative.. EKG was otherwise unremarkable. Recommendations --third dose of methylprednisone 500 milligram today, then switch to 60 mg /d starting tomorrow -- pending serological study and paraproteinemia workup -- continue on PhosLo 1 tablet with each meal, nephrocaps -- avoid all nephrotoxicity and non emergency medications --no clear sign of renal recovery yet, will get femoral catheter out and tunnel dialysis catheter placed Explained that at it may take weeks for renal function to recover -- discussed in detail with the patient and wished patient verbalized understanding will follow
--- NOTE | 2017-02-15 10:57 | [facility] Post Operative Brief Note ---
Immediate Operative Summary Operative Date Feb 15, 2017. Pre-Operative Diagnosis Acute Kidney Injury Post-Operative Diagnosis Same Procedure(s) Performed Insertion of Perm Catheter, Right Internal Jugular Approach, Ultrasound Localization of Right Internal Jugular Vein, Fluoroscopy for Positioning, Moderate Sdeation from 1036 - [address] Hines Teaching Young Surgeon(s) None Estimated Blood Loss 0 Findings tip in distal SVC Specimens None Anesthesia Local with conscious sedation Complication(s) None Disposition
--- NOTE | 2017-02-15 11:01 | [facility] Operative Report ---
Operative Report Operative Date Feb 15, 2017. Pre-Operative Diagnosis Acute Kidney Injury Post-Operative Diagnosis Acute renal failure Procedure(s) Performed Insertion of right internal jugular vein permcath-19cm, Ultrasound localization of right internal jugular vein, Fluoro for positioning, moderate conscious sedation [address] Hines Cigar Patcher Surgeon(s) None Estimated Blood Loss 3 Findings tip in distal SVC Specimens None Drains Right femoral HD catheter Anesthesia Local with conscious sedation Complication(s) None Disposition Indications Patient is a 36 year old white female with acute renal injury who had a temporary dialysis placed earlier this week for dialysis. She does not show any renal function improvement. Recommended to place a permcath and remove the temporary catheter. I have discussed the risks options and benefits of the procedure with the patient. The patient understands the risks options and benefits and agrees to the procedure. Description of Procedure Patient was takent to the angio suite and placed in the supine position. The right side of the neck and chest wall were prepped and draped in a sterile manner. Local anesthesia was then administered to the appropriate areas of the neck and chest wall. Ultrasound was then used to locate the right internal jugular vein. The vein compressed easily, had no filing defects, and was patent. The vein was then punctured under direct ultrasound imaging. A guidewire was then passed centrally under fluoroscopic imaging. A stab wound was then made in the anterior chest wall and a 19 cm permcath was passed from the stab wound on the chest wall to the puncture site on the neck. The puncture site was then dilated till the 14Fr peel away sheath was inserted. The permcath was then inserted through the sheath to a central position in the distal superior vena cava. The peel away sheath was then removed. The catheter was then sutured in place using nylon sutures. The puncture was then closed using a 4-0 Vicryl subcuticular suture. Dermabond was used for a dressing on the puncture site. Both ports were then packed with heparin. A sterile dressing was applied to the catheter. The patient left the angio suite in good condition and tolerated the procedure well. I attest to the content of the Intraoperative Record and any orders documented therein. Any exceptions are noted below.
[2017-02-15] MEDS: INSULIN ASPART 100 UNITS/ML 3 ML PEN SC SCH ×3 (12:58→23:19)
[2017-02-15] MEDS: ACETAMINOPHEN 325 MG TAB PO PRN (13:00)
--- NOTE | 2017-02-15 15:55 | Progress Note ---
Subjective Date of Service: Feb 15, 2017. Subjective Pt evaluation today including: conversation w/ patient, physical exam, chart review, lab review, review of inpatient medication list generally feeling ok, a little sore where TDC placed but doesn't feel like she needs anythign stronger than tylenol. no sob. no pulmonary edema s/s. feeling more stable, bored. no new complaints. lots of questions regarding dialysis, current situation, etc. all questions answered to the best of my ability and to her satisfaction Review of Systems all other ROS otherwise negative except for as above Objective Vital Signs Date Time Temp Pulse Resp B/P (MAP) Pulse Ox O2 Delivery O2 Flow Rate FiO2 02/15/17 15:00 75 142/93 02/15/17 14:45 76 151/88 02/15/17 14:30 72 147/96 02/15/17 14:15 36.8 70 155/90 (111) 02/15/17 13:56 36.9 76 19 124/79 (94) 97 Room Air 02/15/17 12:45 37.0 73 18 135/81 (99) 96 Room Air 02/15/17 12:22 37.0 72 17 121/79 (93) 94 Room Air 02/15/17 11:51 96 Room Air 02/15/17 11:49 37.0 70 18 128/76 (93) 96 Room Air 02/15/17 11:35 67 17 142/94 97 Room Air 02/15/17 11:30 67 18 151/96 97 Room Air 02/15/17 11:25 68 18 145/92 96 Room Air 02/15/17 11:20 67 16 142/101 95 Room Air 02/15/17 11:15 66 18 148/92 95 Room Air 02/15/17 11:10 67 15 148/98 97 Room Air 02/15/17 11:05 36.7 69 12 150/94 96 Room Air 02/15/17 10:56 67 17 143/92 99 Room Air 02/15/17 10:08 37.0 71 17 152/91 95 Room Air 02/15/17 10:05 36.7 70 20 157/97 (117) 97 Room Air 02/15/17 07:30 Room Air 02/15/17 07:09 37.0 71 17 152/91 (111) 95 Room Air 02/15/17 00:15 Room Air 02/14/17 22:57 36.7 78 16 147/88 (107) 97 Room Air 02/14/17 21:34 82 135/87 (103) 02/14/17 18:45 Room Air 02/14/17 18:45 36.8 85 20 146/89 (108) 95 Room Air 02/14/17 18:36 37.1 87 20 96 02/14/17 15:55 37.1 87 20 140/93 (109) 96 Room Air Physical Exam General Appearance: no apparent distress Eyes: EOMI ENT: hearing grossly normal Neck: trachea midline Respiratory/Chest: no respiratory distress, no accessory muscle use Extremities: normal range of motion 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, alert, normal mood/affect Laboratory Results Last 24 Hours Test 02/14/17 16:38 02/14/17 17:48 02/14/17 20:45 02/15/17 06:15 Bedside Glucose 232 mg/dl 191 mg/dl 208 mg/dl Sodium Level 128 mmol/L Potassium Level 4.3 mmol/L Chloride Level 92 mmol/L Carbon Dioxide Level 23 mmol/L Anion Gap 13.0 mmol/L Blood Urea Nitrogen 71 mg/dl Creatinine 8.80 mg/dl Est Creatinine Clear Calc Drug Dose 10.4 ml/min Estimated GFR () 6.0 Estimated GFR (Non- 5.2 BUN/Creatinine Ratio 8.1 Random Glucose 179 mg/dl Calcium Level 8.3 mg/dl Phosphorus Level 8.0 mg/dl Albumin 2.9 gm/dl Test 02/15/17 08:12 02/15/17 10:20 02/15/17 12:00 Bedside Glucose 172 mg/dl 154 mg/dl Bedside Urine Test NEG Assessment and Plan ARF -with hindsight, and with CPK not continuing to rise, highly doubt that rhabdo is the cause -while rare, seems more likely that trulicty ADR may be culprit, with dehydration and ?mild rhabdo causing a degree of overlay -renal US without obstruction -on review of literature - appears the GLP1 mediated renal failure either falls into a prerenal --> ATN situation (nausea/vomiting/diarrhea from the med leads to volume depletion - clearly not the case with her) or there are far more rare but noted cases of interstitial nephritis (which actually could fit the scenario ) -- repeat UA noted ongoing red and white cells and some red cell casts; awaiting urine eosinophils to help with clarity -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 (autoimmune type labs sent by nephrology wont' be back until next week at the soonest) -possible that she may need a renal biopsy in the near future if etiology remains unclear or she fails to improve w empiric treatment, but hopefully this will not be necessary -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 AIN w steroids - today is day 3 of 500mg solumedrol, change to 60mg prednisone tomorrow -acute HD again today due to electrolyte disturbances -pulmonary edema has improved and remained stable acute hypoxic respiratory failure due to acute pulmonary edema -for clarification purposes - NOT a CHF picture; due to oliguric/near anuric renal failure not cardiac cause -improved w first HD treatment, now a resolved issue metabolic acidosis, hyponatremia, and hyperkalemia -from ARF -ongoing - HD again today Elevated LFT's - multiple possibilities - has fatty liver, statin possible culprit, maybe small effects from rhabdo - statin held - repeat CMP showing downward trend, follow periodically T2DM - right now w steroids using basal / bolus insulin, sugars have been acceptable , continue to titrate as steroids are reduced - holding metformin and trulicity - most recent A1c 6.7 Depression - continue zoloft HTN - marked elevation was due to ARF/anuria - metoprolol, amlodipine, HD. numbers improving - didn't tolerate prn hydralazine well - with ongoing HD and improving numbers, will reduce amlodipine to 5mg for tomorrow DVT Prophylaxis - heparin subq hypocalcemia - vitamin D somewhat low at 21 - replace PO literature discussing GLP1 mediated renal failure (of course, almost all references are to exanatide since it has been out much longer): https://www.ncbi.nlm.nih.gov/pmc/articles/TKV2239066/ ---> section specific to renal side effects most helpful in this article https://www.ncbi.nlm.nih.gov/pmc/articles/LHZ8582004/ --> discusses findings similar to above, appears to maybe even reference the same cases, but again reiterates finding that appear to help in discerning etiology for her if, in fact, related to GLP1 UpToDate article reviewed but nothing that appeared specific enough to pertain to her situation, references appear to be to the above articles anyway
[2017-02-15] MEDS: METHYLPREDNISOLONE IV 500 MG in DEXTROSE 5% 250ML 250 ML IV SCH (19:32)
[2017-02-15] MEDS ORDERED: LORAZEPAM 0.5 MG TAB PO PRN (21:30)
[2017-02-16] VITALS (7 sets, daily range): BP systolic 137–167; BP diastolic 77–109; PULSE 68–77; TEMP 36.3–37; O2SAT 95–99
[2017-02-16] MEDS ORDERED: NURSING VERBAL MED ORDER ONE (00:15)
[2017-02-16 04:11] LABS: URINE APPEARANCE CLEAR (CLEAR); URINE BILIRUBIN NEG (NEG); URINE COLOR YELLOW; URINE EPITHELIAL CELL AUTO >30 /lpf (0-5); URINE NITRITE NEG (NEG); UROBILINOGEN NEG (NEG)
[2017-02-16 04:28] LABS: URINE PROTIEN/CREAT RATIO 3.7 (0-0.2)
[2017-02-16 04:30] LABS: MANUAL MICROSCOPIC REQUIRED? NO; REVIEW REQ? YES; SULFASALICYLIC ACID POS (NEG)
[2017-02-16] MEDS ORDERED: INSULIN ASPART 100 UNITS/ML 3 ML PEN SC SCH (08:00)
[2017-02-16 08:48] LABS: BUN/CREATININE RATIO 7.7 (10-20); CALCIUM 8.2 mg/dl (8.5-10.1); CREATININE 6.9 mg/dl (0.60-1.20); POTASSIUM 4.5 mmol/L (3.5-5.1)
[2017-02-16 08:49] LABS: PHOSPHORUS 5.7 mg/dl (2.5-4.9)
[2017-02-16] MEDS: INSULIN GLARGINE SOLOSTAR 100 UNITS/ML 3 ML PEN SC SCH (08:54)
[2017-02-16] MEDS: HEPARIN SOD 5000 UNIT/0.5 ML CARP SQ SCH ×2 (08:54→21:26)
[2017-02-16] MEDS: METOPROLOL TARTRATE 25 MG TAB PO SCH ×2 (08:55→20:58)
[2017-02-16] MEDS: CHOLECALCIFEROL 1000 INTER.UNIT TAB PO SCH (08:55)
[2017-02-16] MEDS ORDERED: AMLODIPINE BESYLATE 5 MG TAB PO SCH (09:00)
--- NOTE | 2017-02-16 11:13 | Nephrology Progress Note ---
Nephrology Progress Note Date of Service Feb 16, 2017. Chief Complaint Follow up evaluation of this patient w/ RADHA requiring HD Subjective Mrs. Smith was seen & examined in her hospital room this morning. She reports that she tolerated HD yesterday without complication. She currently denies fever, flank pain or uremic symptoms. She has been making a small amount of urine. Review of Systems Constitutional: No fever Cardiovascular: No chest pain Respiratory: No dyspnea at rest Abdomen: No pain, No nausea, No vomiting Extremities: No leg edema A complete review of systems was performed. Pertinent positives are noted above. All other systems are negative. Vital Signs Last 8 Hrs Date Time Temp Pulse Resp B/P (MAP) Pulse Ox O2 Delivery O2 Flow Rate FiO2 02/16/17 08:25 36.9 68 17 151/91 (111) 96 Room Air 02/16/17 07:35 Room Air 02/16/17 03:59 36.8 74 16 151/94 (113) 96 Room Air Last Recorded Weight Weight (Kilograms): 110.900 Physical Exam General Appearance: no apparent distress Head: normocephalic, atraumatic Eyes: PERRL, EOMI Neck: no adenopathy, + pertinent finding (IJ THC with clean dry dressing in place) Respiratory/Chest: lungs clear, no respiratory distress Cardiovascular: regular rate, rhythm Abdomen/GI: normal bowel sounds, non tender, soft Extremities/Musculoskelatal: no calf tenderness, no pedal edema Neurologic/Psych: alert, oriented x 3 Family History No h/o CKD, ESRD Social History Alcohol Use: occasionally Drug Use: none Housing Status: lives with family Laboratory Results Past 24 Hours 02/16/17 07:20 Test 02/15/17 12:00 02/15/17 23:15 02/16/17 04:00 02/16/17 07:20 Bedside Glucose 154 mg/dl (70-90) 169 mg/dl (70-90) Urine Color YELLOW Urine Appearance CLEAR (CLEAR) Urine pH 8.0 (4.5-7.5) Urine Specific [place] 1.010 (1.000-1.030) Urine Protein 2+ (NEG) Urine Glucose (UA) 1+ (NEG) Urine Ketones NEG (NEG) Urine Occult Blood 3+ (NEG) Urine Nitrite NEG (NEG) Urine Bilirubin NEG (NEG) Urine Urobilinogen NEG (NEG) Urine Leukocyte Esterase MODERATE (NEG) Urine WBC (Auto) 10-30 /hpf (0-5) Urine RBC (Auto) >30 /hpf (0-4) Urine Hyaline Casts (Auto) 1-5 /lpf (0-5) Urine Epithelial Cells (Auto) >30 /lpf (0-5) Urine Bacteria (Auto) NEG (NEG) Urine Renal Epithelial Cells /lpf (0-5) Urine Yeast (Auto) (NONE PRSENT) Urine Random Creatinine 14.0 mg/dl Urine Random Total Protein 52.0 mg/dl (0-11.9) Urine Protein/Creatinine Ratio 3.7 (0-0.2) Anion Gap 10.0 mmol/L (3-11) Est Creatinine Clear Calc Drug Dose 13.5 ml/min Estimated GFR () 8.0 Estimated GFR (Non- 6.9 BUN/Creatinine Ratio 7.7 (10-20) Calcium Level 8.2 mg/dl (8.5-10.1) Phosphorus Level 5.7 mg/dl (2.5-4.9) Albumin 2.8 gm/dl (3.4-5.0) Test 02/16/17 07:55 Bedside Glucose 168 mg/dl (70-90) Allergies Coded Allergies: Aspirin (Verified Allergy, Intermediate, SWELLING, 11/21/09) Iodine (Verified Allergy, Unknown, SHELLFISH, 11/16/09) Salicylates (Verified Allergy, Unknown, ?, 11/16/09) Medications Current Inpatient Medications Medications (Trade) Dose Ordered Sig/Xiang Route Start Time Stop Time Status Last Admin Dose Admin Acetaminophen (Tylenol Tab) 650 mg Q4H PRN PO 02/11/17 20:00 03/13/17 19:59 02/15/17 13:00 650 MG Al Hydrox/Mg Hydrox/Simethicone (Maalox Max Susp) 15 ml Q4H PRN PO 02/11/17 20:00 03/13/17 19:59 Magnesium Hydroxide (Milk Of Magnesia Susp) 30 ml Q6H PRN PO 02/11/17 20:00 03/13/17 19:59 Polyethylene (Miralax Powder Packet) 17 gm DAILY PRN PO 02/11/17 20:30 03/13/17 20:29 Ondansetron HCl (Zofran Inj) 4 mg Q6H PRN IV 02/11/17 20:00 03/13/17 19:59 Heparin Sodium (Porcine) (Heparin Sq 5000 Unit/0.5ml) 5,000 unit Q12H SQ 02/11/17 22:00 03/13/17 21:59 02/16/17 08:54 5,000 UNIT Glucose (Glucose 40% Gel) 15-30 GRAMS 15 GRAMS... UD PRN PO 02/11/17 20:30 03/13/17 20:29 Glucose (Glucose Chew Tab) 4-8 Tablets 4 Tabl... UD PRN PO 02/11/17 20:30 03/13/17 20:29 Dextrose (Dextrose 50% 50ML Syringe) 25-50ML OF 50% DW IV FOR... UD PRN IV 02/11/17 20:30 03/13/17 20:29 Glucagon (Glucagon Inj) 1 mg UD PRN SQ 02/11/17 20:30 03/13/17 20:29 Metoprolol Tartrate (Lopressor Tab) 75 mg BID PO 02/12/17 21:00 03/14/17 08:59 02/16/17 08:55 75 MG Temazepam (Restoril Cap) 7.5 mg HS PRN PO 02/12/17 19:00 03/14/17 18:59 02/12/17 21:04 7.5 MG Cholecalciferol (Vitamin D Tab) 3,000 inter.unit QAM PO 02/14/17 09:00 03/16/17 08:59 02/16/17 08:55 3,000 INTER.UNIT Insulin Glargine (Lantus Solostar Pen) 7 units DAILY SC 02/15/17 09:00 03/16/17 08:59 02/16/17 08:54 7 UNITS Prednisone (PredniSONE TAB) 60 mg DAILY PO 02/16/17 09:00 03/18/17 08:59 02/16/17 08:56 60 MG Amlodipine Besylate (Norvasc Tab) 5 mg QAM PO 02/16/17 09:00 03/16/17 08:59 02/16/17 08:55 5 MG Lorazepam (Ativan Tab) 0.5 mg HS PRN PO 02/15/17 21:30 03/17/17 21:29 02/16/17 01:41 0.5 MG Insulin Aspart (novoLOG ASPART) SLIDING SCALE G... ACHS SC 02/16/17 08:00 03/18/17 07:59 02/15/17 23:19 1 UNITS Impression (1) Acute kidney injury (2) Increased anion gap metabolic acidosis (3) Anemia Mrs. Smith was admitted to the hospital for evaluation of oliguric RADHA. Creatinine ed from 0.9 to 12 over a 4 week period. Upon presentation she had evidence of dehydration and mild rhabdomyolysis. CPK was 8000. Patient required IJ THC placement and initiation of HD. Her medical history is significant for AODM, HTN, hypercholesterolemia. She was started on Trulicity 6 weeks prior to admission. Renal US has been negative for obstruction. Urinalysis has shown blood and protein. Proteinuria has been nephrotic range. Vasculitis studies have been ordered Recommendations -- Patient has received 3 doses of Methylprednisolone. She is starting oral Prednisone today -- Immunology studies reviewed this am and remain pending -- Lyme testing is negative -- Continue on PhosLo 1 tablet with each meal, nephrocaps -- Patient was last dialyzed 02/15 for 4 hours w/ 2 L UF. HD RN notes reviewed today. There were no complications -- Currently volume status and electrolyte balance are acceptable. No acute indication for HD today. Will monitor UO and kidney function over weekend
[2017-02-16] MEDS: INSULIN ASPART 100 UNITS/ML 3 ML PEN SC SCH ×3 (13:12→20:53)
[2017-02-16] MEDS ORDERED: AMLODIPINE BESYLATE 5 MG TAB PO ONE (13:35)
--- NOTE | 2017-02-16 13:37 | Progress Note ---
Subjective Date of Service: Feb 16, 2017. Subjective Pt evaluation today including: conversation w/ patient, physical exam, chart review, lab review, review of inpatient medication list smiling. feeling better. working on things for outside the hospital. no new problems. still not much UO. no nausea no malaise/aches. generlally feeling better Review of Systems all other ROS otherwise negative except for as above Objective Vital Signs Date Time Temp Pulse Resp B/P (MAP) Pulse Ox O2 Delivery O2 Flow Rate FiO2 02/16/17 12:00 37.0 68 17 156/99 (118) 95 Room Air 02/16/17 08:25 36.9 68 17 151/91 (111) 96 Room Air 02/16/17 07:35 Room Air 02/16/17 03:59 36.8 74 16 151/94 (113) 96 Room Air 02/15/17 23:15 36.8 77 18 145/94 (111) 93 Room Air 02/15/17 23:05 Room Air 02/15/17 21:05 83 154/90 (111) 02/15/17 19:00 Room Air 02/15/17 19:00 36.9 76 18 142/94 (110) 98 Room Air 02/15/17 18:33 36.6 79 161/88 (112) 02/15/17 18:30 73 /88 02/15/17 18:15 71 140/87 02/15/17 18:00 66 138/89 02/15/17 17:45 69 144/95 02/15/17 17:30 73 147/101 02/15/17 17:15 71 156/101 02/15/17 17:00 69 144/91 02/15/17 16:45 70 145/99 02/15/17 16:30 72 151/97 02/15/17 16:15 72 156/99 02/15/17 16:00 79 152/88 02/15/17 15:45 72 149/96 02/15/17 15:30 76 140/91 02/15/17 15:15 70 144/88 02/15/17 15:00 75 142/93 02/15/17 14:45 76 151/88 02/15/17 14:30 72 147/96 02/15/17 14:15 36.8 70 155/90 (111) 02/15/17 13:56 36.9 76 19 124/79 (94) 97 Room Air Physical Exam General Appearance: no apparent distress Eyes: EOMI ENT: hearing grossly normal Neck: trachea midline Respiratory/Chest: no respiratory distress, no accessory muscle use Extremities: normal range of motion 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, alert, normal mood/affect Skin: normal color Laboratory Results Last 24 Hours Test 02/15/17 23:15 02/16/17 04:00 02/16/17 07:20 02/16/17 07:55 Bedside Glucose 169 mg/dl 168 mg/dl Urine Color YELLOW Urine Appearance CLEAR Urine pH 8.0 Urine Specific [place] 1.010 Urine Protein 2+ Urine Glucose (UA) 1+ Urine Ketones NEG Urine Occult Blood 3+ Urine Nitrite NEG Urine Bilirubin NEG Urine Urobilinogen NEG Urine Leukocyte Esterase MODERATE Urine WBC (Auto) 10-30 /hpf Urine RBC (Auto) >30 /hpf Urine Hyaline Casts (Auto) 1-5 /lpf Urine Epithelial Cells (Auto) >30 /lpf Urine Bacteria (Auto) NEG Urine Renal Epithelial Cells /lpf Urine Yeast (Auto) Urine Random Creatinine 14.0 mg/dl Urine Random Total Protein 52.0 mg/dl Urine Protein/Creatinine Ratio 3.7 Sodium Level 130 mmol/L Potassium Level 4.5 mmol/L Chloride Level 95 mmol/L Carbon Dioxide Level 25 mmol/L Anion Gap 10.0 mmol/L Blood Urea Nitrogen 53 mg/dl Creatinine 6.90 mg/dl Est Creatinine Clear Calc Drug Dose 13.5 ml/min Estimated GFR () 8.0 Estimated GFR (Non- 6.9 BUN/Creatinine Ratio 7.7 Random Glucose 177 mg/dl Calcium Level 8.2 mg/dl Phosphorus Level 5.7 mg/dl Albumin 2.8 gm/dl Test 02/16/17 11:48 Bedside Glucose 164 mg/dl Assessment and Plan ARF -with hindsight, and with CPK not continuing to rise, highly doubt that rhabdo is the cause -while rare, seems more likely that trulicty ADR may be culprit, with dehydration and ?mild rhabdo causing a degree of overlay -renal US without obstruction -on review of literature - appears the GLP1 mediated renal failure either falls into a prerenal --> ATN situation (nausea/vomiting/diarrhea from the med leads to volume depletion - clearly not the case with her) or there are far more rare but noted cases of interstitial nephritis (which actually could fit the scenario ) -- repeat UA noted ongoing red and white cells and some red cell casts; awaiting urine eosinophils to help with clarity -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 (autoimmune type labs sent by nephrology wont' be back until next week at the soonest) -possible that she may need a renal biopsy in the near future if etiology remains unclear or she fails to improve w empiric treatment, but hopefully this will not be necessary -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 AIN w steroids - had 3 days 500mg solumedrol, now on 60mg prednisone -no need for acute HD today -pulmonary edema has improved and remained stable acute hypoxic respiratory failure due to acute pulmonary edema -for clarification purposes - NOT a CHF picture; due to oliguric/near anuric renal failure not cardiac cause -improved w first HD treatment, now a resolved issue, still stable today metabolic acidosis, hyponatremia, and hyperkalemia -from ARF -ongoing - HD again today Elevated LFT's - multiple possibilities - has fatty liver, statin possible culprit, maybe small effects from rhabdo - statin held - repeat CMP showing downward trend, follow periodically (CMP in AM 02/17 next) T2DM - right now w steroids using basal / bolus insulin, sugars have been acceptable today, will follow as steroids reduced - holding metformin and trulicity - most recent A1c 6.7 Depression - continue zoloft HTN - marked elevation was due to ARF/anuria - metoprolol, amlodipine, HD. numbers improving - didn't tolerate prn hydralazine well - reduced amlodipine since numbers were improving w HD - but BP rising some again - will resume 10mg (had 5 this AM, additional 5 now, then 10 again 02/17 onward) DVT Prophylaxis - heparin subq hypocalcemia - vitamin D somewhat low at 21 - replace PO literature discussing GLP1 mediated renal failure (of course, almost all references are to exanatide since it has been out much longer): https://www.ncbi.nlm.nih.gov/pmc/articles/HWJ0680707/ ---> section specific to renal side effects most helpful in this article https://www.ncbi.nlm.nih.gov/pmc/articles/VMO5125854/ --> discusses findings similar to above, appears to maybe even reference the same cases, but again reiterates finding that appear to help in discerning etiology for her if, in fact, related to GLP1 UpToDate article reviewed but nothing that appeared specific enough to pertain to her situation, references appear to be to the above articles anyway
[2017-02-16] MEDS ORDERED: DOXAZosin TAB 1 MG TAB PO ONE (16:07)
[2017-02-16] MEDS: DOXAZosin TAB 1 MG TAB PO SCH (21:22)
[2017-02-17 06:15] LABS: HEMATOCRIT 27.5 % (37-47); MEAN CELL VOLUME 89.3 fL (80-100); MEAN CORPUSCULAR HEMOGLOBIN 30.5 pg (25-34); MEAN CORPUSCULAR HGB CONC 34.2 g/dl (32-36); MEAN PLATELET VOLUME 8.9 fL (7.4-10.4); PLATELET COUNT 146 K/uL (130-400); RED BLOOD COUNT 3.08 M/uL (4.2-5.4); WHITE BLOOD COUNT 12.26 K/uL (4.8-10.8)
[2017-02-17 06:57] LABS: ALB/GLOB RATIO 0.9 (0.9-2); BUN/CREATININE RATIO 9.6 (10-20); CALCIUM 8.1 mg/dl (8.5-10.1); CREATININE 9.1 mg/dl (0.60-1.20); PHOSPHORUS 8.2 mg/dl (2.5-4.9); POTASSIUM 4.1 mmol/L (3.5-5.1)
[2017-02-17] MEDS: DOXAZosin TAB 1 MG TAB PO SCH ×2 (09:04→20:49)
[2017-02-17] MEDS: METOPROLOL TARTRATE 25 MG TAB PO SCH ×2 (09:04→20:49)
[2017-02-17] MEDS: AMLODIPINE BESYLATE 5 MG TAB PO SCH (09:05)
[2017-02-17] MEDS: CHOLECALCIFEROL 1000 INTER.UNIT TAB PO SCH (09:05)
[2017-02-17] MEDS: INSULIN GLARGINE SOLOSTAR 100 UNITS/ML 3 ML PEN SC SCH (09:09)
[2017-02-17] MEDS: HEPARIN SOD 5000 UNIT/0.5 ML CARP SQ SCH ×2 (09:10→21:43)
[2017-02-17] MEDS: INSULIN ASPART 100 UNITS/ML 3 ML PEN SC SCH ×4 (09:10→20:56)
--- NOTE | 2017-02-17 10:58 | Nephrology Progress Note ---
Nephrology Progress Note Date of Service Feb 17, 2017. Chief Complaint Follow up evaluation of this patient w/ RADHA requiring HD Subjective Mrs. Smith was seen & examined in her hospital room this morning. She denies any complications overnight. She currently denies CP, dyspnea, nausea or progressive lower extremity edema. Mrs. Smith reports that her urine output is mildly improved. Review of Systems Constitutional: No fever Cardiovascular: No chest pain Respiratory: No dyspnea at rest Abdomen: No pain, No nausea, No vomiting Genitourinary - Female: No dysuria, No gross hematuria Extremities: No leg edema A complete review of systems was performed. Pertinent positives are noted above. All other systems are negative. Vital Signs Last 8 Hrs Date Time Temp Pulse Resp B/P (MAP) Pulse Ox O2 Delivery O2 Flow Rate FiO2 02/17/17 10:27 Room Air Last Recorded Weight Weight (Kilograms): 110.900 Physical Exam General Appearance: no apparent distress Head: normocephalic, atraumatic Eyes: PERRL, EOMI Neck: supple, no adenopathy Respiratory/Chest: lungs clear, no respiratory distress Cardiovascular: regular rate, rhythm, no murmur Abdomen/GI: normal bowel sounds, non tender, soft Extremities/Musculoskelatal: no calf tenderness, no pedal edema Neurologic/Psych: alert, oriented x 3 Family History No h/o CKD, ESRD Social History Alcohol Use: occasionally Drug Use: none Housing Status: lives with family Laboratory Results Past 24 Hours 02/17/17 05:39 02/17/17 05:39 Test 02/16/17 11:48 02/16/17 17:34 02/16/17 20:17 02/17/17 05:39 Bedside Glucose 164 mg/dl (70-90) 142 mg/dl (70-90) 202 mg/dl (70-90) Red Blood Count 3.08 M/uL (4.2-5.4) Mean Corpuscular Volume 89.3 fL (80-100) Mean Corpuscular Hemoglobin 30.5 pg (25-34) Mean Corpuscular Hemoglobin Concent 34.2 g/dl (32-36) RDW Standard Deviation 43.6 fL (36.4-46.3) RDW Coefficient of Variation 13.3 % (11.5-14.5) Mean Platelet Volume 8.9 fL (7.4-10.4) Anion Gap 13.0 mmol/L (3-11) Est Creatinine Clear Calc Drug Dose 10.2 ml/min Estimated GFR () 5.7 Estimated GFR (Non- 4.9 BUN/Creatinine Ratio 9.6 (10-20) Calcium Level 8.1 mg/dl (8.5-10.1) Phosphorus Level 8.2 mg/dl (2.5-4.9) Total Bilirubin 0.3 mg/dl (0.2-1) Aspartate Amino Transf (AST/SGOT) 19 U/L (15-37) Alanine Aminotransferase (ALT/SGPT) 52 U/L (12-78) Alkaline Phosphatase 42 U/L (45-117) Total Protein 6.0 gm/dl (6.4-8.2) Albumin 2.8 gm/dl (3.4-5.0) Globulin 3.2 gm/dl (2.5-4.0) Albumin/Globulin Ratio 0.9 (0.9-2) Test 02/17/17 08:03 Bedside Glucose 116 mg/dl (70-90) Allergies Coded Allergies: Aspirin (Verified Allergy, Intermediate, SWELLING, 11/21/09) Iodine (Verified Allergy, Unknown, SHELLFISH, 11/16/09) Salicylates (Verified Allergy, Unknown, ?, 11/16/09) Medications Current Inpatient Medications Medications (Trade) Dose Ordered Sig/Xiang Route Start Time Stop Time Status Last Admin Dose Admin Acetaminophen (Tylenol Tab) 650 mg Q4H PRN PO 02/11/17 20:00 03/13/17 19:59 02/15/17 13:00 650 MG Al Hydrox/Mg Hydrox/Simethicone (Maalox Max Susp) 15 ml Q4H PRN PO 02/11/17 20:00 03/13/17 19:59 Magnesium Hydroxide (Milk Of Magnesia Susp) 30 ml Q6H PRN PO 02/11/17 20:00 03/13/17 19:59 Polyethylene (Miralax Powder Packet) 17 gm DAILY PRN PO 02/11/17 20:30 03/13/17 20:29 Ondansetron HCl (Zofran Inj) 4 mg Q6H PRN IV 02/11/17 20:00 03/13/17 19:59 Heparin Sodium (Porcine) (Heparin Sq 5000 Unit/0.5ml) 5,000 unit Q12H SQ 02/11/17 22:00 03/13/17 21:59 02/17/17 09:10 5,000 UNIT Glucose (Glucose 40% Gel) 15-30 GRAMS 15 GRAMS... UD PRN PO 02/11/17 20:30 03/13/17 20:29 Glucose (Glucose Chew Tab) 4-8 Tablets 4 Tabl... UD PRN PO 02/11/17 20:30 03/13/17 20:29 Dextrose (Dextrose 50% 50ML Syringe) 25-50ML OF 50% DW IV FOR... UD PRN IV 02/11/17 20:30 03/13/17 20:29 Glucagon (Glucagon Inj) 1 mg UD PRN SQ 02/11/17 20:30 03/13/17 20:29 Metoprolol Tartrate (Lopressor Tab) 75 mg BID PO 02/12/17 21:00 03/14/17 08:59 02/17/17 09:04 75 MG Temazepam (Restoril Cap) 7.5 mg HS PRN PO 02/12/17 19:00 03/14/17 18:59 02/12/17 21:04 7.5 MG Cholecalciferol (Vitamin D Tab) 3,000 inter.unit QAM PO 02/14/17 09:00 03/16/17 08:59 02/17/17 09:05 3,000 INTER.UNIT Insulin Glargine (Lantus Solostar Pen) 7 units DAILY SC 02/15/17 09:00 03/16/17 08:59 02/17/17 09:09 7 UNITS Prednisone (PredniSONE TAB) 60 mg DAILY PO 02/16/17 09:00 03/18/17 08:59 02/17/17 09:05 60 MG Lorazepam (Ativan Tab) 0.5 mg HS PRN PO 02/15/17 21:30 03/17/17 21:29 02/16/17 01:41 0.5 MG Insulin Aspart (novoLOG ASPART) SLIDING SCALE G... ACHS SC 02/16/17 08:00 03/18/17 07:59 02/17/17 09:10 5 UNITS Amlodipine Besylate (Norvasc Tab) 10 mg QAM PO 02/17/17 09:00 03/16/17 08:59 02/17/17 09:05 10 MG Doxazosin Mesylate (Cardura Tab) 1 mg BID PO 02/16/17 21:00 03/18/17 20:59 02/17/17 09:04 1 MG Impression (1) Acute kidney injury (2) Increased anion gap metabolic acidosis (3) Anemia Mrs. Smith was admitted to the hospital for evaluation of oliguric RADHA. Creatinine ed from 0.9 to 12 over a 4 week period. Upon presentation she had evidence of dehydration and mild rhabdomyolysis. CPK was 8000. Patient required IJ THC placement and initiation of HD. Her medical history is significant for AODM, HTN, hypercholesterolemia. She was started on Trulicity 6 weeks prior to admission. Renal US has been negative for obstruction. Urinalysis has shown blood and protein. Proteinuria has been nephrotic range. Vasculitis studies have been ordered Recommendations -- Continue Prednisone 60 mg po daily today. Consider tapering to 40 mg tomorrow. -- Immunology studies reviewed this am 02/17/17 and remain pending -- Lyme testing is negative. Hepatitis B is negative -- Continue on PhosLo 1 tablet with each meal, nephrocaps -- Currently volume status and electrolyte balance are acceptable. No acute indication for HD today. Will monitor UO and kidney function over weekend -- Will reassess need for dialysis in am. If patient requires continued HD may consider social service consultation to set up outpatient HD at [facility]
[2017-02-17 14:30] LABS: ALBUMIN % 53.39 %; ALPHA-2-GLOBULIN % 9.69 %; BETA GLOBULIN % 18.63 %; CREATININE UR 40 MG/DL (20-320); GAMMA GLOBULIN % 10.84 %
[2017-02-17 15:47] VITALS: BP 125/80; PULSE 75; TEMP 37; O2SAT 96
--- NOTE | 2017-02-17 16:53 | Progress Note ---
Subjective Date of Service: Feb 17, 2017. Subjective Pt evaluation today including: conversation w/ patient, physical exam, chart review, lab review, review of inpatient medication list breathing feels good no nausea or malaise notes starting to have reasonable UO "i have to get out of here tomorrow" discussed "work in progress" of HD needs, and definite need to have outpatient HD set up if she's going home, she expresses understanding Review of Systems all other ROS otherwise negative except for as above Objective Vital Signs Date Time Temp Pulse Resp B/P (MAP) Pulse Ox O2 Delivery O2 Flow Rate FiO2 02/17/17 15:47 37.0 75 18 125/80 (95) 96 Room Air 02/17/17 10:27 Room Air 02/17/17 00:02 Room Air 02/16/17 23:20 36.3 74 14 149/77 (101) 96 Room Air 02/16/17 20:54 77 148/93 (111) 02/16/17 18:14 137/86 (103) Physical Exam General Appearance: no apparent distress Eyes: EOMI ENT: hearing grossly normal Neck: trachea midline Respiratory/Chest: no respiratory distress, no accessory muscle use Extremities: normal range of motion 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, alert, normal mood/affect Skin: normal color, warm/dry Laboratory Results Last 24 Hours Test 02/16/17 17:34 02/16/17 20:17 02/17/17 05:39 02/17/17 08:03 Bedside Glucose 142 mg/dl 202 mg/dl 116 mg/dl White Blood Count 12.26 K/uL Red Blood Count 3.08 M/uL Hemoglobin 9.4 g/dL Hematocrit 27.5 % Mean Corpuscular Volume 89.3 fL Mean Corpuscular Hemoglobin 30.5 pg Mean Corpuscular Hemoglobin Concent 34.2 g/dl RDW Standard Deviation 43.6 fL RDW Coefficient of Variation 13.3 % Platelet Count 146 K/uL Mean Platelet Volume 8.9 fL Sodium Level 134 mmol/L Potassium Level 4.1 mmol/L Chloride Level 97 mmol/L Carbon Dioxide Level 24 mmol/L Anion Gap 13.0 mmol/L Blood Urea Nitrogen 87 mg/dl Creatinine 9.10 mg/dl Est Creatinine Clear Calc Drug Dose 10.2 ml/min Estimated GFR () 5.7 Estimated GFR (Non- 4.9 BUN/Creatinine Ratio 9.6 Random Glucose 118 mg/dl Calcium Level 8.1 mg/dl Phosphorus Level 8.2 mg/dl Total Bilirubin 0.3 mg/dl Aspartate Amino Transf (AST/SGOT) 19 U/L Alanine Aminotransferase (ALT/SGPT) 52 U/L Alkaline Phosphatase 42 U/L Total Protein 6.0 gm/dl Albumin 2.8 gm/dl Globulin 3.2 gm/dl Albumin/Globulin Ratio 0.9 Test 02/17/17 11:44 Bedside Glucose 125 mg/dl Assessment and Plan ARF -with hindsight, and with CPK not continuing to rise, highly doubt that rhabdo is the cause -while rare, seems more likely that trulicty ADR may be culprit, with dehydration and ?mild rhabdo causing a degree of overlay -renal US without obstruction -on review of literature - appears the GLP1 mediated renal failure either falls into a prerenal --> ATN situation (nausea/vomiting/diarrhea from the med leads to volume depletion - clearly not the case with her) or there are far more rare but noted cases of interstitial nephritis (which actually could fit the scenario ) -- repeat UA noted ongoing red and white cells and some red cell casts; awaiting urine eosinophils to help with clarity -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 (autoimmune type labs sent by nephrology wont' be back until next week at the soonest) -possible that she may need a renal biopsy in the near future if etiology remains unclear or she fails to improve w empiric treatment, but hopefully this will not be necessary -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 hyperphosphatemia remains. Elevated LFT's - multiple possibilities - has fatty liver, statin possible culprit, maybe small effects from rhabdo - statin held - repeat CMP showed downward trend, now normal. would hold on statin for now just to avoid confounding factors, but as long as LFTs stay normal in coming weeks, would resume statin as outpt T2DM - sugar still overall acceptable despite steroids, will follow as steroids reduced - continue gentle basal/bolus - holding metformin and trulicity - most recent A1c 6.7 Depression - continue zoloft HTN - marked elevation was due to ARF/anuria - metoprolol, amlodipine, HD, doxazosin. numbers improving - didn't tolerate prn hydralazine well DVT Prophylaxis - heparin subq hypocalcemia - vitamin D somewhat low at 21 - replace PO literature discussing GLP1 mediated renal failure (of course, almost all references are to exanatide since it has been out much longer): https://www.ncbi.nlm.nih.gov/pmc/articles/ZBC2048324/ ---> section specific to renal side effects most helpful in this article https://www.ncbi.nlm.nih.gov/pmc/articles/EUM0690629/ --> discusses findings similar to above, appears to maybe even reference the same cases, but again reiterates finding that appear to help in discerning etiology for her if, in fact, related to GLP1 UpToDate article reviewed but nothing that appeared specific enough to pertain to her situation, references appear to be to the above articles anyway
[2017-02-17 20:46] VITALS: BP 159/100; PULSE 75
[2017-02-17 23:01] VITALS: BP 128/78; PULSE 63; TEMP 36.9; O2SAT 97
[2017-02-18] VITALS (19 sets, daily range): BP systolic 136–163; BP diastolic 81–109; PULSE 62–86; TEMP 36.4–37.2; O2SAT 97–98
[2017-02-18] MEDS: INSULIN ASPART 100 UNITS/ML 3 ML PEN SC SCH ×4 (07:48→21:33)
[2017-02-18] MEDS: INSULIN GLARGINE SOLOSTAR 100 UNITS/ML 3 ML PEN SC SCH (07:49)
[2017-02-18] MEDS: CHOLECALCIFEROL 1000 INTER.UNIT TAB PO SCH (07:51)
[2017-02-18] MEDS: DOXAZosin TAB 1 MG TAB PO SCH ×2 (07:52→21:30)
[2017-02-18 08:05] LABS: BUN/CREATININE RATIO 10.1 (10-20); CALCIUM 8.5 mg/dl (8.5-10.1); POTASSIUM 4.1 mmol/L (3.5-5.1)
[2017-02-18] MEDS: METOPROLOL TARTRATE 25 MG TAB PO SCH ×2 (09:00→21:31)
[2017-02-18] MEDS: HEPARIN SOD 5000 UNIT/0.5 ML CARP SQ SCH ×2 (10:00→21:34)
--- NOTE | 2017-02-18 10:27 | Nephrology Progress Note ---
Nephrology Progress Note Date of Service Feb 18, 2017. Chief Complaint F/U for acute kidney injury, anuria, hyperkalemia and gap metabolic acidosis. Jennifer Mancuso Was seen and examined in her room this morning. She has been otherwise feeling well, denies any anorexia, nausea, insomnia, abdominal discomfort. Denies shortness of breath, chest pain. Urine output has been improving, over last 24 hour med almost 1 liter of urine. Renal function continues to worsen rapidly off of dialysis, creatinine 11 this morning. Review of Systems A complete review of systems was performed. Pertinent positives are noted above. All other systems are negative. Vital Signs Last 8 Hrs Date Time Temp Pulse Resp B/P (MAP) Pulse Ox O2 Delivery O2 Flow Rate FiO2 02/18/17 07:20 Room Air 02/18/17 06:31 36.4 69 16 149/89 (109) 98 Room Air Last Recorded Weight Weight (Kilograms): 110.900 Physical Exam GENERAL: Young female, AAA x 3, pleasant, not in any distress. NECK: Supple, no JVD. RESPIRATORY: Normal breathing efforts, no accessory muscle use, clear to auscultation bilaterally, no wheezes or rales. CARDIOVASCULAR: S1, S2 normal, rate rhythm regular. EXTREMITY: No lower extremity edema NEURO: speech fluent. PSYCHIATRY: Normal mood and judgment Family History No h/o CKD, ESRD Social History Alcohol Use: occasionally Drug Use: none Housing Status: lives with family Laboratory Results Past 24 Hours 02/18/17 06:32 Test 02/17/17 11:44 02/17/17 16:56 02/17/17 20:34 02/18/17 06:28 Bedside Glucose 125 mg/dl (70-90) 175 mg/dl (70-90) 224 mg/dl (70-90) 101 mg/dl (70-90) Test 02/18/17 06:32 02/18/17 08:02 Anion Gap 15.0 mmol/L (3-11) Est Creatinine Clear Calc Drug Dose 8.5 ml/min Estimated GFR () 4.6 Estimated GFR (Non- 3.9 BUN/Creatinine Ratio 10.1 (10-20) Calcium Level 8.5 mg/dl (8.5-10.1) Bedside Glucose 134 mg/dl (70-90) Allergies Coded Allergies: Aspirin (Verified Allergy, Intermediate, SWELLING, 11/21/09) Iodine (Verified Allergy, Unknown, SHELLFISH, 11/16/09) Salicylates (Verified Allergy, Unknown, ?, 11/16/09) Medications Current Inpatient Medications Medications (Trade) Dose Ordered Sig/Xiang Route Start Time Stop Time Status Last Admin Dose Admin Acetaminophen (Tylenol Tab) 650 mg Q4H PRN PO 02/11/17 20:00 03/13/17 19:59 02/15/17 13:00 650 MG Al Hydrox/Mg Hydrox/Simethicone (Maalox Max Susp) 15 ml Q4H PRN PO 02/11/17 20:00 03/13/17 19:59 Magnesium Hydroxide (Milk Of Magnesia Susp) 30 ml Q6H PRN PO 02/11/17 20:00 03/13/17 19:59 Polyethylene (Miralax Powder Packet) 17 gm DAILY PRN PO 02/11/17 20:30 03/13/17 20:29 Ondansetron HCl (Zofran Inj) 4 mg Q6H PRN IV 02/11/17 20:00 03/13/17 19:59 Heparin Sodium (Porcine) (Heparin Sq 5000 Unit/0.5ml) 5,000 unit Q12H SQ 02/11/17 22:00 03/13/17 21:59 02/17/17 21:43 5,000 UNIT Glucose (Glucose 40% Gel) 15-30 GRAMS 15 GRAMS... UD PRN PO 02/11/17 20:30 03/13/17 20:29 Glucose (Glucose Chew Tab) 4-8 Tablets 4 Tabl... UD PRN PO 02/11/17 20:30 03/13/17 20:29 Dextrose (Dextrose 50% 50ML Syringe) 25-50ML OF 50% DW IV FOR... UD PRN IV 02/11/17 20:30 03/13/17 20:29 Glucagon (Glucagon Inj) 1 mg UD PRN SQ 02/11/17 20:30 03/13/17 20:29 Metoprolol Tartrate (Lopressor Tab) 75 mg BID PO 02/12/17 21:00 03/14/17 08:59 02/17/17 20:49 75 MG Temazepam (Restoril Cap) 7.5 mg HS PRN PO 02/12/17 19:00 03/14/17 18:59 6/27/17 21:04 7.5 MG Cholecalciferol (Vitamin D Tab) 3,000 inter.unit QAM PO 02/14/17 09:00 03/16/17 08:59 02/18/17 07:51 3,000 INTER.UNIT Insulin Glargine (Lantus Solostar Pen) 7 units DAILY SC 02/15/17 09:00 03/16/17 08:59 02/18/17 07:49 7 UNITS Prednisone (PredniSONE TAB) 60 mg DAILY PO 02/16/17 09:00 03/18/17 08:59 02/18/17 07:50 60 MG Lorazepam (Ativan Tab) 0.5 mg HS PRN PO 02/15/17 21:30 03/17/17 21:29 02/16/17 01:41 0.5 MG Insulin Aspart (novoLOG ASPART) SLIDING SCALE G... ACHS SC 02/16/17 08:00 03/18/17 07:59 02/18/17 07:48 9 UNITS Amlodipine Besylate (Norvasc Tab) 10 mg QAM PO 02/17/17 09:00 03/16/17 08:59 02/17/17 09:05 10 MG Doxazosin Mesylate (Cardura Tab) 1 mg BID PO 02/16/17 21:00 03/18/17 20:59 02/18/17 07:52 1 MG Impression (1) Acute kidney injury (2) Increased anion gap metabolic acidosis (3) Anemia Mrs. Smith was admitted to the hospital for evaluation of oliguric RADHA. Creatinine ed from 0.9 to 12 over a 4 week period. Upon presentation she had evidence of dehydration and mild rhabdomyolysis. CPK was 8000. Patient required IJ THC placement and initiation of HD. Her medical history is significant for AODM, HTN, hypercholesterolemia. She was started on Trulicity 6 weeks prior to admission. Renal US has been negative for obstruction. Urinalysis has shown blood and protein. Proteinuria has been nephrotic range. Vasculitis studies have been ordered Recommendations -- decrease Prednisone to 40 mg P.O. daily for 2 days then continue tapering by 10 milligram every 2 days. -- will schedule for dialysis today, continue on 3 times weekly while monitoring for renal recovery. Discussed in detail with the patient, will set up outpatient dialysis at [place] [facility] unit, on Saturday, , Saturday. She has spot available for next pending completion of paperwork. Tentative plan to do next dialysis tomorrow and then discharge. -- Continue on PhosLo 1 tablet with each meal, nephrocaps -- will give Epogen 15575 units x1 dose today Will follow
[2017-02-18] MEDS: AMLODIPINE BESYLATE 5 MG TAB PO SCH (13:50)
--- NOTE | 2017-02-18 20:34 | Hospitalist Progress Note ---
Hospitalist Progress Note Date of Service Feb 18, 2017. Subjective Pt evaluation today including: conversation w/ patient, conversation w/ family Pt frustrated about being in the hospital. No other complaints. Had HD again today Constitutional: No fever Respiratory: No shortness of breath Cardiovascular: No chest pain Abdomen: No pain All Other Systems: Reviewed and Negative Objective Vital Signs Date Time Temp Pulse Resp B/P (MAP) Pulse Ox O2 Delivery O2 Flow Rate FiO2 02/18/17 15:30 Room Air 02/18/17 15:28 37.2 81 18 136/81 (99) 97 Room Air 02/18/17 13:49 36.8 86 151/89 (109) 02/18/17 13:45 37.0 77 17 143/83 (103) 97 Room Air 02/18/17 13:15 83 163/99 02/18/17 13:00 81 145/85 02/18/17 12:45 77 157/98 02/18/17 12:30 75 158/101 02/18/17 12:15 74 158/104 02/18/17 12:00 70 162/109 02/18/17 11:45 69 149/103 02/18/17 11:30 71 152/102 02/18/17 11:18 74 155/100 02/18/17 11:00 73 153/101 02/18/17 10:45 70 152/102 02/18/17 10:30 78 157/98 02/18/17 10:17 72 158/96 02/18/17 10:09 36.8 79 157/93 (114) 02/18/17 07:20 Room Air 02/18/17 06:31 36.4 69 16 149/89 (109) 98 Room Air 02/17/17 23:38 Room Air 02/17/17 23:01 36.9 63 16 128/78 (95) 97 Room Air 02/17/17 20:46 75 159/100 (119) Physical Exam General Appearance: WD/WN, no apparent distress Eyes: normal inspection, sclerae normal ENT: hearing grossly normal Neck: trachea midline Respiratory/Chest: lungs clear, normal breath sounds, no respiratory distress, no accessory muscle use Cardiovascular: regular rate, rhythm, no murmur, + pertinent finding (trace pitting edema legs bilat) Abdomen: normal bowel sounds, non tender, soft Extremities: no calf tenderness Neurologic/Psychiatric: alert, oriented x 3, + depressed affect Skin: no rash, + pertinent finding (right TIJ in place with some surrunding ecchymosis, no erythema) Laboratory Results Last 24 Hours Test 02/17/17 20:34 02/18/17 06:28 02/18/17 06:32 02/18/17 08:02 Bedside Glucose 224 mg/dl 101 mg/dl 134 mg/dl Sodium Level 133 mmol/L Potassium Level 4.1 mmol/L Chloride Level 97 mmol/L Carbon Dioxide Level 21 mmol/L Anion Gap 15.0 mmol/L Blood Urea Nitrogen 111 mg/dl Creatinine 11.00 mg/dl Est Creatinine Clear Calc Drug Dose 8.5 ml/min Estimated GFR () 4.6 Estimated GFR (Non- 3.9 BUN/Creatinine Ratio 10.1 Random Glucose 101 mg/dl Calcium Level 8.5 mg/dl Test 02/18/17 14:24 02/18/17 16:56 Bedside Glucose 207 mg/dl 228 mg/dl Assessment and Plan Pt is a 36 yo female with a h/o DMII, obesity, HL, and depression, here with oliguria and acute kidney injury. Communication Assistant was 12 on admission. RADHA, secondary to possible AIN vs ATN vs GN, with proteinuria. DId have elevated CPK on admission after lifting a lot of boxes -with hindsight, and with CPK not continuing to rise, highly doubt that rhabdo is the cause -while rare, seems more likely that trulicty ADR may be culprit, with dehydration and ?mild rhabdo causing a degree of overlay -renal US without obstruction -on review of literature - appears the GLP1 mediated renal failure either falls into a prerenal --> ATN situation (nausea/vomiting/diarrhea from the med leads to volume depletion - clearly not the case with her) or there are far more rare but noted cases of interstitial nephritis (which actually could fit the scenario ) -- repeat UA noted ongoing red and white cells and some red cell casts; however, urine eosinophils negative UPEP with faint beta region band could be c/w monoclonal immunoglobulin Other autoimmune studies pending -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 (autoimmune type labs sent by nephrology wont' be back until next week at the soonest) -possible that she may need a renal biopsy in the near future if etiology remains unclear or she fails to improve w empiric treatment, but hopefully this will not be necessary -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 AIN w steroids - had 3 days 500mg solumedrol, now on 40mg prednisone and will taper down--> does not seem to be responding to steroids -continue HD as per Nephro -pulmonary edema has improved and remained stable acute hypoxic respiratory failure due to acute pulmonary edema-resolved -for clarification purposes - NOT a CHF picture; due to oliguric/near anuric renal failure not cardiac cause -improved w first HD treatment, now a resolved issue, no evidence of recurrence , and hopefully now that she's making more UO, won't be recurring problem at all metabolic acidosis, hyponatremia, and hyperkalemia -has stabilized/resolved. hyperphosphatemia remains. Elevated LFT's - multiple possibilities - has fatty liver, statin possible culprit, maybe small effects from rhabdo - statin held - repeat CMP showed downward trend, now normal. would hold on statin for now just to avoid confounding factors, but as long as LFTs stay normal in coming weeks, would resume statin as outpt T2DM - sugar still overall acceptable despite steroids, will follow as steroids reduced - continue gentle basal/bolus - holding metformin and trulicity - most recent A1c 6.7 Depression - continue zoloft HTN-BPs improving with HD - marked elevation was due to ARF/anuria - metoprolol, amlodipine, HD, doxazosin. numbers improving - didn't tolerate prn hydralazine well DVT Prophylaxis - heparin subq hypocalcemia - vitamin D somewhat low at 21 - replace PO
[2017-02-18 21:27] LABS: ALBUMIN 3.3 G/DL (3.8-4.8); GAMMA GLOBULIN 0.8 G/DL (0.8-1.7); MYELOPEROXIDASE AB <1.0 AI (<1.0); TOTAL PROTEIN 6.7 G/DL (6.2-8.3)
[2017-02-19 06:51] VITALS: BP 142/97; PULSE 68; TEMP 36.9; O2SAT 97
[2017-02-19] MEDS: CHOLECALCIFEROL 1000 INTER.UNIT TAB PO SCH (07:20)
[2017-02-19 07:22] LABS: BUN/CREATININE RATIO 9.3 (10-20); CALCIUM 8.4 mg/dl (8.5-10.1); CREATININE 7.9 mg/dl (0.60-1.20); POTASSIUM 3.8 mmol/L (3.5-5.1)
[2017-02-19] MEDS: INSULIN ASPART 100 UNITS/ML 3 ML PEN SC SCH ×4 (07:27→20:48)
[2017-02-19] MEDS: INSULIN GLARGINE SOLOSTAR 100 UNITS/ML 3 ML PEN SC SCH (07:27)
[2017-02-19] MEDS: DOXAZosin TAB 1 MG TAB PO SCH ×2 (10:22→20:44)
[2017-02-19] MEDS: AMLODIPINE BESYLATE 5 MG TAB PO SCH (10:22)
[2017-02-19] MEDS: METOPROLOL TARTRATE 25 MG TAB PO SCH ×2 (10:22→20:44)
[2017-02-19] MEDS: HEPARIN SOD 5000 UNIT/0.5 ML CARP SQ SCH ×2 (10:27→22:29)
--- NOTE | 2017-02-19 12:31 | Nephrology Progress Note ---
Nephrology Progress Note Date of Service Feb 19, 2017. Chief Complaint F/U for acute kidney injury, anuria, hyperkalemia and gap metabolic acidosis. Jennifer Mancuso was seen and examined in her room this morning. She was very emotional, tearful and upset with prolonged hospital course. her blood pressure acceptable , urine output has been improving. Electrolyte this morning acceptable. Had dialysis yesterday. Review of Systems A complete review of systems was performed. Pertinent positives are noted above. All other systems are negative. Vital Signs Last 8 Hrs Date Time Temp Pulse Resp B/P (MAP) Pulse Ox O2 Delivery O2 Flow Rate FiO2 02/19/17 07:10 Room Air 02/19/17 06:51 36.9 68 15 142/97 (112) 97 Room Air Last Recorded Weight Weight (Kilograms): 110.900 Family History No h/o CKD, ESRD Social History Alcohol Use: occasionally Drug Use: none Housing Status: lives with family Laboratory Results Past 24 Hours 02/19/17 06:13 Test 02/18/17 14:24 02/18/17 16:56 02/18/17 20:47 02/19/17 06:13 Bedside Glucose 207 mg/dl (70-90) 228 mg/dl (70-90) 155 mg/dl (70-90) Anion Gap 12.0 mmol/L (3-11) Est Creatinine Clear Calc Drug Dose 11.8 ml/min Estimated GFR () 6.8 Estimated GFR (Non- 5.9 BUN/Creatinine Ratio 9.3 (10-20) Calcium Level 8.4 mg/dl (8.5-10.1) Test 02/19/17 06:41 Bedside Glucose 120 mg/dl (70-90) Allergies Coded Allergies: Aspirin (Verified Allergy, Intermediate, SWELLING, 11/21/09) Iodine (Verified Allergy, Unknown, SHELLFISH, 11/16/09) Salicylates (Verified Allergy, Unknown, ?, 11/16/09) Medications Current Inpatient Medications Medications (Trade) Dose Ordered Sig/Xiang Route Start Time Stop Time Status Last Admin Dose Admin Acetaminophen (Tylenol Tab) 650 mg Q4H PRN PO 02/11/17 20:00 03/13/17 19:59 02/15/17 13:00 650 MG Al Hydrox/Mg Hydrox/Simethicone (Maalox Max Susp) 15 ml Q4H PRN PO 02/11/17 20:00 03/13/17 19:59 Magnesium Hydroxide (Milk Of Magnesia Susp) 30 ml Q6H PRN PO 02/11/17 20:00 03/13/17 19:59 Polyethylene (Miralax Powder Packet) 17 gm DAILY PRN PO 02/11/17 20:30 03/13/17 20:29 Ondansetron HCl (Zofran Inj) 4 mg Q6H PRN IV 02/11/17 20:00 03/13/17 19:59 Heparin Sodium (Porcine) (Heparin Sq 5000 Unit/0.5ml) 5,000 unit Q12H SQ 02/11/17 22:00 03/13/17 21:59 02/19/17 10:27 5,000 UNIT Glucose (Glucose 40% Gel) 15-30 GRAMS 15 GRAMS... UD PRN PO 02/11/17 20:30 03/13/17 20:29 Glucose (Glucose Chew Tab) 4-8 Tablets 4 Tabl... UD PRN PO 02/11/17 20:30 03/13/17 20:29 Dextrose (Dextrose 50% 50ML Syringe) 25-50ML OF 50% DW IV FOR... UD PRN IV 02/11/17 20:30 03/13/17 20:29 Glucagon (Glucagon Inj) 1 mg UD PRN SQ 02/11/17 20:30 03/13/17 20:29 Metoprolol Tartrate (Lopressor Tab) 75 mg BID PO 02/12/17 21:00 03/14/17 08:59 02/19/17 10:22 75 MG Temazepam (Restoril Cap) 7.5 mg HS PRN PO 02/12/17 19:00 03/14/17 18:59 02/12/17 21:04 7.5 MG Cholecalciferol (Vitamin D Tab) 3,000 inter.unit QAM PO 02/14/17 09:00 03/16/17 08:59 02/19/17 07:20 3,000 INTER.UNIT Insulin Glargine (Lantus Solostar Pen) 7 units DAILY SC 02/15/17 09:00 03/16/17 08:59 02/19/17 07:27 7 UNITS Lorazepam (Ativan Tab) 0.5 mg HS PRN PO 02/15/17 21:30 03/17/17 21:29 02/16/17 01:41 0.5 MG Insulin Aspart (novoLOG ASPART) SLIDING SCALE G... ACHS SC 02/16/17 08:00 03/18/17 07:59 02/19/17 07:27 7 UNITS Amlodipine Besylate (Norvasc Tab) 10 mg QAM PO 02/17/17 09:00 03/16/17 08:59 02/19/17 10:22 10 MG Doxazosin Mesylate (Cardura Tab) 1 mg BID PO 02/16/17 21:00 03/18/17 20:59 02/19/17 10:22 1 MG Prednisone (PredniSONE TAB) 40 mg DAILY PO 02/19/17 09:00 03/18/17 08:59 02/19/17 07:20 40 MG Impression (1) Acute kidney injury (2) Increased anion gap metabolic acidosis (3) Anemia Mrs. Smith was admitted to the hospital for evaluation of oliguric RADHA. Creatinine ed from 0.9 to 12 over a 4 week period. Upon presentation she had evidence of dehydration and mild rhabdomyolysis. CPK was 8000. Patient required IJ THC placement and initiation of HD. Her medical history is significant for AODM, HTN, hypercholesterolemia. She was started on Trulicity 6 weeks prior to admission. Renal US has been negative for obstruction. Urinalysis has shown blood and protein. Workup including serological and paraproteinemia workup was negative. Acute kidney injury most likely was secondary to AIN versus ATN, received methylprednisone 500 milligram IV x3 dose and currently on taper dose of prednisone, plan to do decrease by 10 milligram every 2 days. waiting on insurance authorization for outpatient dialysis, has spot available at [facility] for Saturday, , Saturday. She has been making more urine, more than a liter per day however creatinine continues to rapidly go up off of dialysis. Recommendations -- continue tapering prednisone by 10 milligram every 2 days. --try to coordinate with social service for possible discharge today however considering holiday was not possible and hopefully by tomorrow will receive in shows authorization, had dialysis and discharge with outpatient dialysis at [facility] unit, on Saturday, , Saturday. She has spot available for next pending completion of paperwork. --will tentatively keep on schedule for tomorrow morning however, will check lab, if creatinine continues to decrease will keep off of dialysis -- Continue on PhosLo 1 tablet with each meal, nephrocaps -- will give Epogen 29887 units x1 dose today Will follow
[2017-02-19 15:25] VITALS: BP 138/90; PULSE 73; TEMP 37.1; O2SAT 96
--- NOTE | 2017-02-19 18:35 | Hospitalist Progress Note ---
Hospitalist Progress Note Date of Service Feb 19, 2017. Subjective Pt evaluation today including: conversation w/ patient, physical exam, conversation w/ taxation consultant (Dr. Nava) Feeling lonely today, wishing she was out of the hospital. No problems or concerns All Other Systems: Reviewed and Negative Objective Vital Signs Date Time Temp Pulse Resp B/P (MAP) Pulse Ox O2 Delivery O2 Flow Rate FiO2 02/19/17 15:25 37.1 73 18 138/90 (106) 96 Room Air 02/19/17 07:10 Room Air 02/19/17 06:51 36.9 68 15 142/97 (112) 97 Room Air 02/18/17 23:21 36.9 62 14 136/85 (102) 98 Room Air 02/18/17 23:15 Room Air Physical Exam General Appearance: WD/WN, no apparent distress Eyes: normal inspection, sclerae normal ENT: hearing grossly normal Neck: trachea midline Respiratory/Chest: lungs clear, normal breath sounds, no respiratory distress, no accessory muscle use Cardiovascular: regular rate, rhythm, no gallop, no murmur, + pertinent finding (trace pitting edema legs bilat) Abdomen: normal bowel sounds, non tender, soft Extremities: non-tender, no calf tenderness Neurologic/Psychiatric: alert, oriented x 3, + depressed affect Skin: normal color, warm/dry, no rash Laboratory Results Last 24 Hours Test 02/18/17 20:47 02/19/17 06:13 02/19/17 06:41 02/19/17 12:29 Bedside Glucose 155 mg/dl 120 mg/dl 170 mg/dl Sodium Level 137 mmol/L Potassium Level 3.8 mmol/L Chloride Level 100 mmol/L Carbon Dioxide Level 25 mmol/L Anion Gap 12.0 mmol/L Blood Urea Nitrogen 73 mg/dl Creatinine 7.90 mg/dl Est Creatinine Clear Calc Drug Dose 11.8 ml/min Estimated GFR () 6.8 Estimated GFR (Non- 5.9 BUN/Creatinine Ratio 9.3 Random Glucose 131 mg/dl Calcium Level 8.4 mg/dl Test 02/19/17 17:16 Bedside Glucose 191 mg/dl Assessment and Plan Pt is a 36 yo female with a h/o DMII, obesity, HL, and depression, here with oliguria and acute kidney injury. Genetic Technologist was 12 on admission. RADHA, secondary to possible AIN vs ATN vs GN, with proteinuria. Did have elevated CPK on admission after lifting a lot of boxes -with hindsight, and with CPK not continuing to rise, highly doubt that rhabdo is the cause -while rare, seems more likely that Trulicty ADR may be culprit, with dehydration and ?mild rhabdo causing a degree of overlay -renal US without obstruction -on review of literature - appears the GLP1 mediated renal failure either falls into a prerenal --> ATN situation (nausea/vomiting/diarrhea from the med leads to volume depletion - clearly not the case with her) or there are far more rare but noted cases of interstitial nephritis (which actually could fit the scenario ) -- repeat UA noted ongoing red and white cells and some red cell casts; however, urine eosinophils negative UPEP with faint beta region band could be c/w monoclonal immunoglobulin-- unclear significance Other autoimmune studies negative -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 (although less likely now with normal autoimmune workup) -will not likely need a renal biopsy as per Nephrology -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 AIN w steroids - had 3 days 500mg solumedrol, now on 40mg prednisone and will taper down by 10mg q2 days till 10mg, then 5mg x 2 days then stop -continue HD as per Nephro tomorrow and then hopeful for dc tomorrow with outpt approval of HD for TThSat schedule -repeat UPEP in a few weeks with Nephrology acute hypoxic respiratory failure due to acute pulmonary edema-resolved -for clarification purposes - NOT a CHF picture; due to oliguric/near anuric renal failure not cardiac cause -improved w first HD treatment, now a resolved issue, no evidence of recurrence , and hopefully now that she's making more UO, won't be recurring problem at all metabolic acidosis, hyponatremia, and hyperkalemia -has stabilized/resolved. Elevated LFT's - multiple possibilities - has fatty liver, statin possible culprit, maybe small effects from rhabdo - statin held - repeat CMP showed downward trend, now normal. would hold on statin for now just to avoid confounding factors, but as long as LFTs stay normal in coming weeks, would resume statin as outpt T2DM - sugar still overall acceptable despite steroids, will follow as steroids reduced - continue gentle basal/bolus - holding metformin and trulicity - most recent A1c 6.7 -could send out with Lantus 10 units once daily -Diabetic Education ordered Depression-exacerbated by medical condition - continue zoloft HTN-BPs improving with HD - marked elevation was due to ARF/anuria - metoprolol, amlodipine, HD, doxazosin. numbers improving - didn't tolerate prn hydralazine well hypocalcemia - vitamin D somewhat low at 21 - replace PO DVT Prophylaxis - heparin subq
[2017-02-19 20:42] VITALS: BP 152/89; PULSE 76
[2017-02-19 23:17] VITALS: BP 134/85; PULSE 60; TEMP 36.9; O2SAT 99
[2017-02-20] VITALS (21 sets, daily range): BP systolic 119–160; BP diastolic 78–105; PULSE 62–76; TEMP 36.6–37.2; O2SAT 99–100; Ht 162.6 cm; Wt 110.9 kg
[2017-02-20 06:12] LABS: HEMATOCRIT 31.7 % (37-47); MEAN CELL VOLUME 90.1 fL (80-100); MEAN CORPUSCULAR HEMOGLOBIN 31.3 pg (25-34); MEAN CORPUSCULAR HGB CONC 34.7 g/dl (32-36); MEAN PLATELET VOLUME 8.4 fL (7.4-10.4); PLATELET COUNT 183 K/uL (130-400); RED BLOOD COUNT 3.52 M/uL (4.2-5.4); WHITE BLOOD COUNT 16.14 K/uL (4.8-10.8)
[2017-02-20] MEDS: AMLODIPINE BESYLATE 5 MG TAB PO SCH (07:02)
[2017-02-20] MEDS: METOPROLOL TARTRATE 25 MG TAB PO SCH (07:02)
[2017-02-20 07:08] LABS: BUN/CREATININE RATIO 10.9 (10-20); CALCIUM 8.8 mg/dl (8.5-10.1); CREATININE 9.2 mg/dl (0.60-1.20); POTASSIUM 4.2 mmol/L (3.5-5.1)
[2017-02-20] MEDS: INSULIN ASPART 100 UNITS/ML 3 ML PEN SC SCH ×2 (07:35→14:29)
[2017-02-20] MEDS: INSULIN GLARGINE SOLOSTAR 100 UNITS/ML 3 ML PEN SC SCH (07:36)
[2017-02-20] MEDS ORDERED: EPOETIN ALFA 10,000 UNITS/ML VIAL IV. SCH (08:00)
[2017-02-20] MEDS ORDERED: HEPARIN SOD (PORCINE) 1000 UNIT/ML 10 ML VIAL IV ONE (08:30)
[2017-02-20] MEDS ORDERED: HEPARIN SOD (PORCINE) 1000 UNIT/ML 10 ML VIAL IV SCH (08:30)
[2017-02-20] MEDS: HEPARIN SOD 5000 UNIT/0.5 ML CARP SQ SCH (10:00)
--- NOTE | 2017-02-20 10:57 | Dialysis Progress Note ---
Hemodialysis Note Date of Service Feb 20, 2017. Chief Complaint RADHA Subjective No acute events overnight. Jamee has not shown improvement in serum creatinine , continues to rise off dialysis. She was evaluated during hemodialysis today. UOP appropriate. Tolerating hemodialysis well. Remains very anxious. Review of Systems A complete review of systems was performed. Pertinent positives are noted above. All other systems are negative. Vital Signs Last 8 Hrs Date Time Temp Pulse Resp B/P (MAP) Pulse Ox O2 Delivery O2 Flow Rate FiO2 02/20/17 07:10 Room Air 02/20/17 06:56 36.8 70 16 151/102 (118) 100 Room Air 02/20/17 06:30 36.6 73 16 160/105 (123) 100 Room Air Last Recorded Weight Weight (Kilograms): 110.900 Physical Exam General Appearance: no apparent distress, + obese Head: normocephalic, atraumatic Eyes: normal inspection, sclerae normal ENT: normal ENT inspection, pharynx normal Neck: supple, no JVD Respiratory/Chest: lungs clear, no respiratory distress, no accessory muscle use Cardiovascular: regular rate, rhythm, no murmur Abdomen/GI: non tender, soft Extremities/Musculoskelatal: normal inspection, no pedal edema Neurologic/Psych: alert, oriented x 3 Family History No h/o CKD, ESRD Social History Alcohol Use: occasionally Drug Use: none Housing Status: lives with family Laboratory Results Past 24 Hours 02/20/17 05:51 02/20/17 05:51 Test 02/19/17 12:29 02/19/17 17:16 02/19/17 20:31 02/20/17 05:51 Bedside Glucose 170 mg/dl (70-90) 191 mg/dl (70-90) 163 mg/dl (70-90) Red Blood Count 3.52 M/uL (4.2-5.4) Mean Corpuscular Volume 90.1 fL (80-100) Mean Corpuscular Hemoglobin 31.3 pg (25-34) Mean Corpuscular Hemoglobin Concent 34.7 g/dl (32-36) RDW Standard Deviation 44.1 fL (36.4-46.3) RDW Coefficient of Variation 13.4 % (11.5-14.5) Mean Platelet Volume 8.4 fL (7.4-10.4) Anion Gap 14.0 mmol/L (3-11) Est Creatinine Clear Calc Drug Dose 10.1 ml/min Estimated GFR () 5.7 Estimated GFR (Non- 4.9 BUN/Creatinine Ratio 10.9 (10-20) Calcium Level 8.8 mg/dl (8.5-10.1) Test 02/20/17 06:36 Bedside Glucose 92 mg/dl (70-90) Allergies Coded Allergies: Aspirin (Verified Allergy, Intermediate, SWELLING, 11/21/09) Iodine (Verified Allergy, Unknown, SHELLFISH, 11/16/09) Salicylates (Verified Allergy, Unknown, ?, 11/16/09) Medications Current Inpatient Medications Medications (Trade) Dose Ordered Sig/Xiang Route Start Time Stop Time Status Last Admin Dose Admin Acetaminophen (Tylenol Tab) 650 mg Q4H PRN PO 02/11/17 20:00 03/13/17 19:59 02/15/17 13:00 650 MG Al Hydrox/Mg Hydrox/Simethicone (Maalox Max Susp) 15 ml Q4H PRN PO 02/11/17 20:00 03/13/17 19:59 Magnesium Hydroxide (Milk Of Magnesia Susp) 30 ml Q6H PRN PO 02/11/17 20:00 03/13/17 19:59 Polyethylene (Miralax Powder Packet) 17 gm DAILY PRN PO 02/11/17 20:30 03/13/17 20:29 Ondansetron HCl (Zofran Inj) 4 mg Q6H PRN IV 02/11/17 20:00 03/13/17 19:59 Heparin Sodium (Porcine) (Heparin Sq 5000 Unit/0.5ml) 5,000 unit Q12H SQ 02/11/17 22:00 03/13/17 21:59 02/19/17 22:29 5,000 UNIT Glucose (Glucose 40% Gel) 15-30 GRAMS 15 GRAMS... UD PRN PO 02/11/17 20:30 03/13/17 20:29 Glucose (Glucose Chew Tab) 4-8 Tablets 4 Tabl... UD PRN PO 02/11/17 20:30 03/13/17 20:29 Dextrose (Dextrose 50% 50ML Syringe) 25-50ML OF 50% DW IV FOR... UD PRN IV 02/11/17 20:30 03/13/17 20:29 Glucagon (Glucagon Inj) 1 mg UD PRN SQ 02/11/17 20:30 03/13/17 20:29 Metoprolol Tartrate (Lopressor Tab) 75 mg BID PO 02/12/17 21:00 03/14/17 08:59 02/20/17 07:02 75 MG Temazepam (Restoril Cap) 7.5 mg HS PRN PO 02/12/17 19:00 03/14/17 18:59 02/12/17 21:04 7.5 MG Cholecalciferol (Vitamin D Tab) 3,000 inter.unit QAM PO 02/14/17 09:00 03/16/17 08:59 02/19/17 07:20 3,000 INTER.UNIT Insulin Glargine (Lantus Solostar Pen) 7 units DAILY SC 02/15/17 09:00 03/16/17 08:59 02/20/17 07:36 7 UNITS Lorazepam (Ativan Tab) 0.5 mg HS PRN PO 02/15/17 21:30 03/17/17 21:29 02/16/17 01:41 0.5 MG Insulin Aspart (novoLOG ASPART) SLIDING SCALE G... ACHS SC 02/16/17 08:00 03/18/17 07:59 02/20/17 07:35 11 UNITS Amlodipine Besylate (Norvasc Tab) 10 mg QAM PO 02/17/17 09:00 03/16/17 08:59 02/20/17 07:02 10 MG Doxazosin Mesylate (Cardura Tab) 1 mg BID PO 02/16/17 21:00 03/18/17 20:59 02/19/17 20:44 1 MG Prednisone (PredniSONE TAB) 40 mg DAILY PO 02/19/17 09:00 03/18/17 08:59 02/19/17 07:20 40 MG Epoetin Ryley (Procrit Inj) 10,000 units TODAY@0800 IV. 02/20/17 08:00 02/20/17 13:59 Impression (1) Acute kidney injury (2) Increased anion gap metabolic acidosis (3) Anemia Patient developed significant RADHA requiring ADJUNCT POLITICAL SCIENCE INSTRUCTOR. Creatinine ed from 0.9 to 12 over a 4 week period. Upon presentation she had evidence of dehydration and mild rhabdomyolysis (CPK was 8000). Patient required IJ THC placement and initiation of HD. Her medical history is significant for AODM, HTN, hypercholesterolemia. She was started on Trulicity 6 weeks prior to admission. Renal US has been negative for obstruction. Urinalysis has shown blood and protein. Serologic GN workup negative. SPEP/UPEP equivocal. Acute kidney injury most likely was secondary to AIN versus ATN, received methylprednisone 500 milligram IV x3 dose and currently on taper dose of prednisone, plan to do decrease by 10 milligram every 2 days. Jamee is waiting on insurance authorization for outpatient dialysis, has spot available at [facility] for Saturday, , Saturday. She has been making more urine however creatinine continues to rapidly go up off of dialysis. Recommendations -- HD today and plan to start TTS scheduled as outpatient upon discharge (first treatment tomorrow versus Saturday) -- Dr. Nava will follow on HD -- Renal biopsy may be arranged as outpatient if there is no evidence of renal recovery -- [facility] -- Monitor H/H on HD -- Medications appropriately dosed for renal function -- Prednisone taper per established schedule
[2017-02-20] MEDS ORDERED: INSDGIPEN SC (14:22)
[2017-02-20] MEDS ORDERED: GLUC1TES34 EX (14:22)
[2017-02-20] MEDS ORDERED: AMLO-114 PO (14:22)
[2017-02-20] MEDS ORDERED: INSU32MI13 SQ (14:22)
[2017-02-20] MEDS ORDERED: VTMD1000 PO (14:22)
[2017-02-20] MEDS ORDERED: PHS667 PO (14:22)
[2017-02-20] MEDS ORDERED: METO1TAB68 PO (14:22)
[2017-02-20] MEDS ORDERED: LANC-393 EXT (14:22)
[2017-02-20] MEDS ORDERED: CRD1 PO (14:22)
[2017-02-20] MEDS ORDERED: PRED10TA PO (14:22)
--- NOTE | 2017-02-20 14:27 | Discharge Instructions ---
Discharge Instructions Date of Service Feb 20, 2017. Admission Reason for Admission: Rhabdomyolysis, Acute kidney injury Discharge Discharge Diagnosis / Problem: Acute kidney injury, Rhabdomyolysis Discharge Goals Goal(s): Improve disease control, Therapeutic intervention Activity Recommendations Activity Limitations: resume your previous activity Exercise/Sports Limitations: as tolerated Shower/Bathe: keep incision dry (around catheter site) . Instructions / Follow-Up Instructions / Follow-Up You were admitted with kidney failure and required dialysis. You should continue dialysis at [facility] as an outpatient. Your first appointment there will be on 02/21/17. You will see the Marketing Database Coordinator at your dialysis appointments. You were started on new medications for your diabetes and for your blood pressure. It is important that you take these as prescribed and keep all of your dialysis and doctor's appointments as scheduled. You will STOP taking metformin and Trulicity. Do not take any medications without first checking with your doctor (such as over the counter meds or supplements). Please check your blood glucose twice daily. Current Hospital Diet Patient's current hospital diet: Diabetes Type 2 Diet, Renal Diet Discharge Diet Recommended Diet: Diabetes Type 2 Diet, Renal Diet Procedures Procedures Performed: Insertion of Perm Catheter, Right Internal Jugular Approach, Ultrasound Localization of Right Internal Jugular Vein, Fluoroscopy for Positioning, Moderate Sedation from 1036 - 1056 Renal Ultrasound Chest xray Venous Doppler Pending Studies Studies pending at discharge: no Laboratory Results Hemoglobin A1c Test 12/20/16 08:36 Range/Units Estimated Average Glucose 146 mg/dl Hemoglobin A1c 6.7 H 4.5-5.6 % Lipid Panel Test 12/20/16 08:36 Range/Units Triglycerides Level 162 H 0-150 mg/dl Cholesterol Level 148 0-200 mg/dl HDL Cholesterol 32 mg/dl Cholesterol/HDL Ratio 4.6 LDL Cholesterol, Calculated 84 mg/dl Medical Emergencies . Who to Call and When: Medical Emergencies: If at any time you feel your situation is an emergency, please call 911 immediately. . Non-Emergent Contact Non-Emergency issues call your: Primary Care Provider, Marketing Database Coordinator Call Non-Emergent contact if: you have a fever, you have any medication questions . . "Provider Documentation" section prepared by Elizabeth Lundberg. . VTE Core Measure Inpt VTE Proph given/why not?: Unfractionated heparin SQ
[2017-02-20] MEDS: CHOLECALCIFEROL 1000 INTER.UNIT TAB PO SCH (14:33)
--- NOTE | 2017-02-25 01:31 | Discharge Summary ---
Discharge Summary Date of Service Feb 20, 2017. Discharge Summary Admission Date: Feb 11, 2017 at 19:57 Discharge Date: Feb 20, 2017 Discharge Disposition: Home Principal Diagnosis: RADHA Problems/Secondary Diagnoses: DMII Obesity HL Depression Oliguria Rhabdomyolysis Abnormal UPEP Acute hypoxic respiratory failure due to acute pulmonary edema Metabolic acidosis Hyponatremia Hyperkalemia Elevated LFT's Hypocalcemia Vitamin D deficiency Procedures: Tunneled IJ catheter placement Chest xray Renal US Venous Doppler Consultations: Nephrology Vascular Surgery Medication Reconciliation New Medications: Amlodipine (Norvasc) 10 Mg Tab 10 MG PO DAILY for 30 Days, #30 TAB Calcium Acetate (Phoslo 667 Mg) 667 Mg Cap 1 TAB PO WM for 30 Days, #90 CAP Glucose Blood (Resermapuch Verio Test Strip) 1 Leti Leti 1 EA EX BID for 30 Days, #60 EA Insulin Pen Needle (Bd Pen Needle/Jacqui/Ultra) 1 Mis Mis EA SQ DAILY, #1 30 needles Lancets (Meetricstouch Delica Lancets) 1 Mis Mis EA EXT BID, #1 60 lancets Metoprolol Succinate (Toprol Xl) 100 Mg Tab 1.5 TAB PO DAILY for 30 Days, #45 TAB 0 Refills to start AM of 02/21/17 Prednisone Tab (Prednisone) 10 Mg Tab 30 MG PO QAM, #13 TAB x 2 days then 20mg qday x 2 days then 10mg qday x 2 days then 5mg qday x 2 days then stop Cholecalciferol (Vitamin D3) 1,000 Inter.unit Tab 3000 INTER.UNIT PO QAM for 30 Days, TAB OTC Doxazosin Mesylate (Doxazosin Mesylate) 1 Mg Tab 1 MG PO BID for 30 Days, #60 TAB Insulin Glargine (Lantus Solostar) 100 Unit/Ml Inj 5 UNITS SC DAILY for 30 Days, #1 BOX HOLD ON DAYS WHEN AM GLUCOSE <100 Continued Medications: Pravastatin Sod (Pravastatin Sodium) 10 Mg Tab 10 MG PO DAILY Sertraline (Zoloft) 50 Mg Tab 50 MG PO DAILY, TAB Discontinued Medications: Dulaglutide (Trulicity) 0.75 Mg/0.5 Ml Inj 0.75 MG SQ WK EVERY SATURDAY Metformin Hcl (Glucophage) 1,000 Mg Tab 1000 MG PO BID, TAB Discharge Exam Feeling well. Received DM education today. Review of Systems: Constitutional: No fever Eyes: No problem reported ENT: No problem reported Respiratory: No problem reported Cardiovascular: No problem reported Abdomen: No problem reported Musculoskeletal: No problem reported Genitourinary - Female: No problem reported Neurologic: No problem reported Psychiatric: No problem reported Endocrine: No problem reported Hematologic / Lymphatic: No problem reported Integumentary: No problem reported Physical Exam: General Appearance: WD/WN, no apparent distress, + obese Eyes: normal inspection, sclerae normal ENT: hearing grossly normal Neck: trachea midline Respiratory/Chest: lungs clear, normal breath sounds, no respiratory distress, no accessory muscle use Cardiovascular: regular rate, rhythm, no edema, no gallop, no murmur Abdomen / GI: normal bowel sounds, non tender, soft Extremities: normal inspection, no calf tenderness, normal capillary refill , no pedal edema, normal range of motion Neurologic/Psychiatric: alert, normal mood/affect, oriented x 3 Skin: normal color, warm/dry, no rash Hospital Course Pt is a 36 yo female with a h/o DMII, obesity, HL, and depression, here with oliguria and acute kidney injury. Medical Safety Director was 12 on admission. RADHA, secondary to possible AIN vs ATN vs GN, with proteinuria. Did have elevated CPK on admission after lifting a lot of boxes -with hindsight, and with CPK not continuing to rise, highly doubt that rhabdo is the cause -while rare, seems more likely that Trulicty ADR may be culprit, with dehydration and ?mild rhabdo causing a degree of overlay -renal US without obstruction -on review of literature - appears the GLP1 mediated renal failure either falls into a prerenal --> ATN situation (nausea/vomiting/diarrhea from the med leads to volume depletion - clearly not the case with her) or there are far more rare but noted cases of interstitial nephritis (which actually could fit the scenario ) -- repeat UA noted ongoing red and white cells and some red cell casts; however, urine eosinophils negative UPEP with faint beta region band could be c/w monoclonal immunoglobulin-- unclear significance Other autoimmune studies negative -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 (although less likely now with normal autoimmune workup) -will not likely need a renal biopsy as per Nephrology -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 AIN w steroids - had 3 days 500mg solumedrol, now on 40mg prednisone and will taper down by 10mg q2 days till 10mg, then 5mg x 2 days then stop -continue HD as per Nephro with outpt approval of HD for TThSat schedule at [facility] -repeat UPEP in a few weeks with Nephrology acute hypoxic respiratory failure due to acute pulmonary edema-resolved -for clarification purposes - NOT a CHF picture; due to oliguric/near anuric renal failure not cardiac cause -improved w first HD treatment, now a resolved issue, no evidence of recurrence , and hopefully now that she's making more UO, won't be recurring problem at all metabolic acidosis, hyponatremia, and hyperkalemia -has stabilized/resolved. Elevated LFT's - multiple possibilities - has fatty liver, statin possible culprit, maybe small effects from rhabdo - statin held - repeat CMP showed downward trend, now normal. would hold on statin for now just to avoid confounding factors, but as long as LFTs stay normal in coming weeks, would resume statin as outpt T2DM - sugar still overall acceptable despite steroids, will follow as steroids reduced - continue gentle basal/bolus - holding metformin and trulicity - most recent A1c 6.7 -will send out with Lantus 5 units once daily as prednisone being tapered down -Diabetic Education ordered Depression-exacerbated by medical condition - continue zoloft HTN-BPs improving with HD - marked elevation was due to ARF/anuria - metoprolol, amlodipine, HD, doxazosin. numbers improving - didn't tolerate prn hydralazine well hypocalcemia - vitamin D somewhat low at 21 - replace PO DVT Prophylaxis - heparin subq Dispo- to home with outpatient HD Total Time Spent: Greater than 30 minutes This includes examination of the patient, discharge planning, medication reconciliation, and communication with other providers. Discharge Instructions Please refer to the electronic Patient Visit Report (Discharge Instructions) for additional information. Follow-Up [facility]ialysis on 02/21/17 PCP within 1 week Additional Copies To Linsey Nava MD; Alexandro Malhotra M.D.
[2017-03-01] MEDS ORDERED: PRVC10 PO (16:55)
[2017-03-01] MEDS ORDERED: SERT50TA PO (16:56)
== END 2017-02-20 16:00 | disposition home or self-care (01) | DRG 682 ==
LOC: C.EDA 16:30 → C.MSN 19:57 → ENRESERV 20:09 → C.2E 02-13 15:15 → EDBEDREQ 02-14 17:47 → ENRESERV 02-14 17:55 → C.MSN 02-14 18:36
PROVIDERS: ADMIT Family Medicine; ATTEND Family Medicine
PROC: 06HM33Z Insertion of Infusion Device into Right Femoral Vein, Percutaneous Approach (ICD-10-PCS; 2017-02-13)
PROC: 02HV33Z Insertion of Infusion Device into Superior Vena Cava, Percutaneous Approach (ICD-10-PCS; principal; 2017-02-15 10:30)
PROC: 5A1D00Z (ICD-10-PCS; 2017-02-20)
DX: N17.9 Acute kidney failure, unspecified (principal); J96.01 Acute respiratory failure with hypoxia; M62.82 Rhabdomyolysis; E87.2 Acidosis; E87.1 Hypo-osmolality and hyponatremia; F32.9 Major depressive disorder, single episode, unspecified; E11.9 Type 2 diabetes mellitus without complications; I10 Essential (primary) hypertension; E87.5 Hyperkalemia; E86.0 Dehydration; E66.9 Obesity, unspecified; Z79.82 Long term (current) use of aspirin; D64.9 Anemia, unspecified; E55.9 Vitamin D deficiency, unspecified

== ENCOUNTER 2017-03-01 17:23 | Emergency (ER) | payer OTHER ==
[~2017-03-01] VITALS: Ht 162.6 cm; Wt 96.0 kg
[~2017-03-01 17:23] MED LIST changes: +AMLO-114 PO; +CRD1 PO; -FERR28TA2 OR; +GLUC1TES34 EX; +INSDGIPEN SC; +INSU32MI13 SQ; +LANC-393 EXT; -LBT/200 PO; +METO1TAB68 PO; -PERCOCET 5-325M1 TAB PO; +PHS667 PO; +PRED10TA PO; -PRENATA2 OR; +PRVC10 PO; +SERT50TA PO; +VTMD1000 PO
[2017-03-01 17:30] VITALS: Ht 162.6 cm; Wt 96.0 kg
[2017-03-01] MEDS ORDERED: SULFAMETHOXAZOLE/TRIMETHOPRIM DS 800/160MG TAB PO STA (19:05)
[2017-03-01] MEDS ORDERED: HYDROmorphone INJ 1 MG/ML SYR IV STA (19:05)
[2017-03-01] MEDS ORDERED: CEFTRIAXONE SOD INJ 1 GM ADDVIAL IV STA (19:05)
[2017-03-01] MEDS ORDERED: ONDANSETRON INJ 2 MG/ML 2 ML VIAL IV STA (19:05)
--- NOTE | 2017-03-01 19:08 | EMERGENCY ROOM VISIT NOTE ---
History Report prepared by Dick: Tamica Alexander Under the Supervision of: Dr. Jamil Sanz M.D. First contact with patient: 18:56 Chief Complaint: SWELLING TO EXTREMITY Stated Complaint: REDNESS/HEAT/SWELLING ON BACKS OF LEGS,FEVER History of Present Illness The patient is a 36 year old female who presents to the Emergency Room with complaints of constant bilateral leg swelling beginning yesterday morning. The patient states that the backs of her legs are red and swollen. She notes that the pain is a burning sensation. She rates her pain as an 8/10 in severity. The patient denies any sunburn, recent trips, and any flying. She states that she gets dialysis. Source of History: patient Onset: yesterday morning Position: leg (bilateral) Symptom Intensity: 8/10 Quality: burning Timing: constant Note: Pt complains of redness and burning. She denies any recent trips and sunburn. Review of Systems See HPI for pertinent positives & negatives. A total of 10 systems reviewed and were otherwise negative. Past Medical & Surgical Medical Problems: (1) Acute kidney injury (2) Anemia (3) Anuria (4) Hyperkalemia, diminished renal excretion (5) Increased anion gap metabolic acidosis (6) Rhabdomyolysis Family History No pertinent family history stated. Social History Smoking Status: Never Smoker Drug Use: none Current/Historical Medications Scheduled Amlodipine (Norvasc), 5 MG PO DAILY Calcium Acetate (Phoslo 667 Mg), 667 MG PO WM Cephalexin Monohydrate (Keflex), 1 CAP PO QID Insulin Glargine (Lantus Solostar), 5 UNITS SC DAILY Metoprolol Succ (Toprol Xl) (Toprol-Xl ), 150 MG PO DAILY Pravastatin Sod (Pravastatin Sodium), 10 MG PO DAILY Sertraline (Zoloft), 50 MG PO DAILY Allergies Coded Allergies: Aspirin (Verified Allergy, Intermediate, SWELLING, 11/21/09) Iodine (Verified Allergy, Unknown, SHELLFISH, 11/16/09) Salicylates (Verified Allergy, Unknown, ?, 11/16/09) Physical Exam Vital Signs Date Time Temp Pulse Resp B/P (MAP) Pulse Ox O2 Delivery O2 Flow Rate FiO2 03/01/17 22:17 36.8 98 18 120/79 99 03/01/17 20:52 99 16 93/65 95 Room Air 7/14/17 17:30 38.1 97 18 108/74 100 Physical Exam GENERAL: Patient is a healthy-appearing well-nourished female HEAD: Normocephalic atraumatic EYES: Ocular movements intact pupils equal and react to light OROPHARYNX mucous membranes are moist no exudates present no erythema or edema present NECK: Supple no nuchal rigidity CHEST: Good equal expansion LUNGS: Clear and equal to auscultation CARDIAC: Normal S1 and S2 ABDOMEN: Soft nontender no guarding BACK: No CVA tenderness EXTREMITIES: No pain upon palpation normal muscle strength in all groups no clubbing cyanosis, 2 areas of erythema to the back of both calves, they are both grossly swollen and tender NEURO: Patient is following commands and answering questions appropriately. Alert and oriented x3 Cranial Nerves 2-12 grossly intact Medical Decision & Procedures ER Provider Diagnostic Interpretation: Radiology results as stated below per my review and radiologist interpretation: VENOUS DOPPLER LW EXT BILAT FINDINGS: There is normal compressibility, flow, and augmentation within the bilateral lower extremity deep venous systems. IMPRESSION: No DVT within the right or left lower extremity. The above report was generated using voice recognition software. It may contain grammatical, syntax or spelling errors. Electronically signed by: Cuco Khan M.D. 03/01/2017 9:21 PM Dictated Date/Time: 03/01/2017 9:20 PM Laboratory Results 03/01/17 20:48 Red Blood Count 2.73, Mean Corpuscular Volume 96.3, Mean Corpuscular Hemoglobin 31.5, Mean Corpuscular Hemoglobin Concent 32.7, Mean Platelet Volume 8.9, Neutrophils (%) (Auto) 77.0, Lymphocytes (%) (Auto) 13.9, Monocytes (%) (Auto) 8.2, Eosinophils (%) (Auto) 0.6, Basophils (%) (Auto) 0.1, Neutrophils # (Auto) 8.00, Lymphocytes # (Auto) 1.44, Monocytes # (Auto) 0.85, Eosinophils # (Auto) 0.06, Basophils # (Auto) 0.01 03/01/17 20:48 Test 03/01/17 20:48 White Blood Count 10.38 K/uL (4.8-10.8) Red Blood Count 2.73 M/uL (4.2-5.4) Hemoglobin 8.6 g/dL (12.0-16.0) Hematocrit 26.3 % (37-47) Mean Corpuscular Volume 96.3 fL (80-100) Mean Corpuscular Hemoglobin 31.5 pg (25-34) Mean Corpuscular Hemoglobin Concent 32.7 g/dl (32-36) Platelet Count 98 K/uL (130-400) Mean Platelet Volume 8.9 fL (7.4-10.4) Neutrophils (%) (Auto) 77.0 % Lymphocytes (%) (Auto) 13.9 % Monocytes (%) (Auto) 8.2 % Eosinophils (%) (Auto) 0.6 % Basophils (%) (Auto) 0.1 % Neutrophils # (Auto) 8.00 K/uL (1.4-6.5) Lymphocytes # (Auto) 1.44 K/uL (1.2-3.4) Monocytes # (Auto) 0.85 K/uL (0.11-0.59) Eosinophils # (Auto) 0.06 K/uL (0-0.5) Basophils # (Auto) 0.01 K/uL (0-0.2) RDW Standard Deviation 46.7 fL (36.4-46.3) RDW Coefficient of Variation 13.5 % (11.5-14.5) Immature Granulocyte % (Auto) 0.2 % Immature Granulocyte # (Auto) 0.02 K/uL (0.00-0.02) Platelet Estimate DECREASED Red Blood Cell Morphology Unremarkable Anion Gap 6.0 mmol/L (3-11) Est Creatinine Clear Calc Drug Dose 25.2 ml/min Estimated GFR () 18.8 Estimated GFR (Non- 16.3 BUN/Creatinine Ratio 7.4 (10-20) Calcium Level 9.2 mg/dl (8.5-10.1) Total Creatine Kinase 58 U/L (26-192) Labs reviewed by ED physician. Medications Administered Medications (Trade) Dose Ordered Sig/Xiang Route Start Time Stop Time Status Last Admin Dose Admin Ceftriaxone Sodium (Rocephin Inj) 1 gm NOW STAT IV 03/01/17 19:05 03/01/17 19:09 DC 03/01/17 20:20 1 GM Hydromorphone HCl (Dilaudid Inj) 1 mg NOW STAT IV 03/01/17 19:05 03/01/17 19:09 DC 03/01/17 20:21 1 MG Ondansetron HCl (Zofran Inj) 4 mg NOW STAT IV 03/01/17 19:05 03/01/17 19:09 DC 03/01/17 20:21 4 MG Trimethoprim/ Sulfamethoxazole (Septra Ds 800/ 160MG Tab) 1 tab NOW STAT PO 03/01/17 19:05 03/01/17 19:09 DC 03/01/17 20:20 1 TAB ED Course 1855: Past medical records reviewed. The patient was evaluated in room A12. A complete history and physical examination was performed. 1904: Trimethoprim/Sulfamethoxazole 1 tab PO, Zofran Inj 4mg IV, Dilaudid Inj 1mg IV, Rocephin Inj 1gm IV. 2147: I reevaluated and updated the patient I recommended a rectal exam and admission and she refused both. 2200: I discussed the patient's case with Dr. Coleman, he has agreed to evaluate the patient for further management and care. 2208: Upon reexamination the patient is doing well. I discussed results and treatment plan with the patient. She verbalizes agreement and understanding. The patient is ready for discharge. Medical Decision Differential diagnosis: Etiologies such as cellulitis, abscess, MRSA infection, DVT, necrotizing fasciitis, dermatitis, drug eruption, as well as others were entertained. Medication Reconciliation: I attest that I have personally reviewed the patient' s current medication list Blood Pressure Screening: Patient was found to have normal blood pressure on screening and does not require follow up. This is a 36-year-old female who presents emergency department with a very complicated recent history. The patient is on dialysis due to her diabetes medication. Presents with bilateral pain and tenderness to the calf area. In addition the patient is also anemic. I discussed this with the patient along with Dr. Zhao both noted that the patient's hemoglobin appears to be falling. I recommended a rectal exam here in the emergency department which the patient refused however she notes that she does not have any dark or tarry stools. I also recommended based on the patient's recent, came history along with the fever at that the patient be admitted to the hospital however she is adamantly refusing. She was placed on Rocephin Dr. Zhao asked that the patient continue Keflex. She is going to keep her dialysis appointments. The patient has demonstrated no significant defect in the decision-making capacity to make choices. The encounter had a good level of communication with language the patient can easily understand. I feel trust was present and conveyed that our action/intentions were the best interest of the patient. The patient was given all relevant information and reiterated the explained risks and benefits. The patient explained the reasoning for refusing treatment clearly. The patient possesses and expresses a set of values and goals, the ability to communicate and understand, and an ability to reason and deliberate. Despite acting emphatically, attentively and with the utmost patient's the patient declined further treatment. I offered options, negotiated, and explored every reasonable choice. I must respect the patient's autonomy and that they feel that their choices are best for them despite the associated risks of leaving without completing the evaluation. The patient was informed about the findings as listed above. All questions were answered and he was pleased with the treatment. Return instructions were outlined and the patient was discharged in stable condition. Consults Time Called: 2156 Consulting Physician: Dr. Coleman Returned Call: 2200 I discussed the patient's case with Dr. Coleman, he has agreed to evaluate the patient for further management and care. Impression Primary Impression: Cellulitis Additional Impression: Anemia Scribe Attestation The scribe's documentation has been prepared under my direction and personally reviewed by me in its entirety. I confirm that the note above accurately reflects all work, treatment, procedures, and medical decision making performed by me. Departure Information Dispostion Home / Self-Care Prescriptions Cephalexin Monohydrate (Keflex) 500 Mg Cap 1 CAP PO QID for 10 Days, #40 CAP Prov: Jamil Sanz MD 03/01/17 Referrals Alexandro Malhotra M.D. (PCP) Forms HOME CARE DOCUMENTATION FORM, IMPORTANT VISIT INFORMATION, WORK / SCHOOL INSTRUCTIONS Patient Instructions Cellulitis - [facility], [facility] Additional Instructions Keep appointments as scheduled Return if you feel weak, dizzy or running uncontrolled fevers You have been examined and treated today on an emergency basis only. This is not a substitute for, or an effort to provide, complete comprehensive medical care. It is impossible to recognize and treat all injuries or illnesses in a single emergency department visit. It is therefore important that you follow up closely with Dr Malhotra. Call as soon as possible for an appointment. Thank you for your time and consideration. I look forward to speaking with you again soon. Please don't hesitate to call us if you have any questions. Problem Qualifiers Primary Impression: Cellulitis Site of cellulitis: extremity Site of cellulitis of extremity: lower extremity Laterality: unspecified laterality Qualified Codes: L03.119 - Cellulitis of unspecified part of limb Additional Impression: Anemia Anemia type: unspecified type Qualified Codes: D64.9 - Anemia, unspecified
[2017-03-01] MEDS ORDERED: INSDGIPEN SC (19:14)
[2017-03-01] MEDS ORDERED: METO1TAB69 PO (19:14)
[2017-03-01] MEDS ORDERED: CALC667C4 PO (19:14)
[2017-03-01] MEDS ORDERED: AMLO-114 PO (19:14)
[2017-03-01 20:56] LABS: HEMATOCRIT 26.3 % (37-47); MEAN CELL VOLUME 96.3 fL (80-100); MEAN CORPUSCULAR HEMOGLOBIN 31.5 pg (25-34); MEAN CORPUSCULAR HGB CONC 32.7 g/dl (32-36); RED BLOOD COUNT 2.73 M/uL (4.2-5.4); WHITE BLOOD COUNT 10.38 K/uL (4.8-10.8)
[2017-03-01 21:13] LABS: BUN/CREATININE RATIO 7.4 (10-20); CALCIUM 9.2 mg/dl (8.5-10.1); CREATININE 3.4 mg/dl (0.60-1.20); POTASSIUM 3.7 mmol/L (3.5-5.1)
--- NOTE | 2017-03-01 21:22 | DIAGNOSTIC IMAGING REPORT ---
VENOUS DOPPLER LW EXT BILAT HISTORY: Pain. Edema. Pt c/o b/l swelling COMPARISON STUDY: None. FINDINGS: There is normal compressibility, flow, and augmentation within the bilateral lower extremity deep venous systems. IMPRESSION: No DVT within the right or left lower extremity. The above report was generated using voice recognition software. It may contain grammatical, syntax or spelling errors. Electronically signed by: Cuco Khan M.D. 03/01/2017 9:21 PM Dictated Date/Time: 03/01/2017 9:20 PM
[2017-03-01 21:28] LABS: BASO % 0.1 %; BASO ABS # 0.01 K/uL (0-0.2); COMPLETE YES; EOS % 0.6 %; IG% 0.2 %; LYMPH % 13.9 %; LYMPH ABS # 1.44 K/uL (1.2-3.4); MEAN PLATELET VOLUME 8.9 fL (7.4-10.4); MONO % 8.2 %; PLATELET COUNT 98 K/uL (130-400); PLT ESTIMATE DECREASED
[2017-03-01] MEDS ORDERED: CEPH500C PO (22:07)
[2017-03-01] MEDS ORDERED: CEPHALEXIN 500MG HOME PACK 1 EA BTL PO ONE (22:15)
[2017-03-01 22:17] VITALS: BP 120/79; PULSE 98; TEMP 36.8; O2SAT 99
== END 2017-03-01 22:18 | disposition home or self-care (01) ==
LOC: C.EDB 17:23 → C.EDA 22:18
DX: L03.115 Cellulitis of right lower limb (principal); L03.116 Cellulitis of left lower limb; D64.9 Anemia, unspecified; E87.5 Hyperkalemia; M62.82 Rhabdomyolysis; E87.2 Acidosis; Z79.4 Long term (current) use of insulin

== ENCOUNTER → 2017-03-11 | Outpatient (CLI) | payer OTHER ==
[~2017-03-11] MED LIST changes: +CALC667C4 PO; +CEPH500C PO; -CRD1 PO; -GLUC1TES34 EX; -INSU32MI13 SQ; -LANC-393 EXT; -METO1TAB68 PO; +METO1TAB69 PO; -PHS667 PO; -PRED10TA PO; -VTMD1000 PO
[2017-03-11 12:09] LABS: MANUAL MICROSCOPIC REQUIRED? NO; URINE APPEARANCE CLEAR (CLEAR); URINE BILIRUBIN NEG (NEG); URINE COLOR YELLOW; URINE NITRITE NEG (NEG); URINE PH 5.5 (4.5-7.5); URINE SPECIFIC GRAVITY 1.015 (1.000-1.030); UROBILINOGEN NEG (NEG)
[2017-03-11 12:10] LABS: REVIEW REQ? NO
[2017-03-11 12:11] LABS: HEMATOCRIT 27.6 % (37-47); MEAN CELL VOLUME 98.2 fL (80-100); MEAN CORPUSCULAR HEMOGLOBIN 31.3 pg (25-34); MEAN CORPUSCULAR HGB CONC 31.9 g/dl (32-36); MEAN PLATELET VOLUME 8.3 fL (7.4-10.4); PLATELET COUNT 382 K/uL (130-400); RED BLOOD COUNT 2.81 M/uL (4.2-5.4); WHITE BLOOD COUNT 4.52 K/uL (4.8-10.8)
[2017-03-11 12:22] LABS: BLOOD UREA NITROGEN 28 mg/dl (7-18); CALCIUM 9.5 mg/dl (8.5-10.1); CARBON DIOXIDE 23 mmol/L (21-32); CHLORIDE 109 mmol/L (98-107); GLUCOSE 146 mg/dl (70-99); PHOSPHORUS 4.6 mg/dl (2.5-4.9); POTASSIUM 3.6 mmol/L (3.5-5.1); SODIUM 142 mmol/L (136-145)
== END | disposition home or self-care (01) ==
LOC: C.LABBFT 09:31
PROVIDERS: ATTEND Internal Medicine Nephrology
DX: N17.9 Acute kidney failure, unspecified (principal)

== ENCOUNTER → 2017-03-20 | Outpatient (CLI) | payer OTHER ==
[~2017-03-20] MED LIST changes: -CEPH500C PO
[2017-03-20 10:07] LABS: BLOOD UREA NITROGEN 25 mg/dl (7-18); BUN/CREATININE RATIO 13.9 (10-20); CALCIUM 9.2 mg/dl (8.5-10.1); CARBON DIOXIDE 23 mmol/L (21-32); CHLORIDE 111 mmol/L (98-107); GLUCOSE 90 mg/dl (70-99); PHOSPHORUS 3.5 mg/dl (2.5-4.9); POTASSIUM 4.3 mmol/L (3.5-5.1); SODIUM 141 mmol/L (136-145)
== END | disposition home or self-care (01) ==
LOC: C.LAB 08:52
PROVIDERS: ATTEND Internal Medicine Nephrology
DX: N17.9 Acute kidney failure, unspecified (principal)

== ENCOUNTER → 2017-03-27 | Outpatient (CLI) | payer OTHER ==
[2017-03-27 15:21] LABS: BLOOD UREA NITROGEN 22 mg/dl (7-18); BUN/CREATININE RATIO 13.6 (10-20); CARBON DIOXIDE 25 mmol/L (21-32); CHLORIDE 107 mmol/L (98-107); GLUCOSE 171 mg/dl (70-99); PHOSPHORUS 3.4 mg/dl (2.5-4.9); POTASSIUM 4.2 mmol/L (3.5-5.1); SODIUM 140 mmol/L (136-145)
== END | disposition home or self-care (01) ==
LOC: C.LAB1850 13:56
PROVIDERS: ATTEND Internal Medicine Nephrology
DX: N17.9 Acute kidney failure, unspecified (principal)

== ENCOUNTER → 2017-04-25 | Outpatient (CLI) | payer OTHER ==
[2017-04-25 13:15] LABS: ALT/SGPT 17 U/L (12-78); BLOOD UREA NITROGEN 24 mg/dl (7-18); BUN/CREATININE RATIO 18.3 (10-20); CALCIUM 9.9 mg/dl (8.5-10.1); CARBON DIOXIDE 26 mmol/L (21-32); CHLORIDE 105 mmol/L (98-107); CHOLESTEROL 190 mg/dl (0-200); GLUCOSE 101 mg/dl (70-99); SODIUM 138 mmol/L (136-145); TRIGLYCERIDES 179 mg/dl (0-150); VERY LOW DENSITY LIPOPROT CALC 36 mg/dl
[2017-04-25 13:18] LABS: ALKALINE PHOSPHATASE 61 U/L (45-117); AST/SGOT 14 U/L (15-37); CHOLESTEROL/HDL RATIO 5.4; HDL CHOLESTEROL 35 mg/dl; LDL CHOLESTEROL CALCULATED 119 mg/dl
[2017-04-25 14:15] LABS: ESTIMATED AVERAGE GLUCOSE 120 mg/dl; HA1C FLAG Normal (Normal)
== END | disposition home or self-care (01) ==
LOC: C.LABBFT 08:31
PROVIDERS: ATTEND Nurse Practitioner
DX: E11.9 Type 2 diabetes mellitus without complications (principal); E78.5 Hyperlipidemia, unspecified

== ENCOUNTER → 2017-08-29 | Outpatient (CLI) | payer OTHER ==
[~2017-08-29] MED LIST changes: +METO100T44 PO; -METO1TAB69 PO
[2017-08-29 12:39] LABS: HEMATOCRIT 37.6 % (37-47); HEMOGLOBIN 12.6 g/dL (12.0-16.0); MEAN CELL VOLUME 95.2 fL (80-100); MEAN CORPUSCULAR HEMOGLOBIN 31.9 pg (25-34); MEAN CORPUSCULAR HGB CONC 33.5 g/dl (32-36); MEAN PLATELET VOLUME 8.8 fL (7.4-10.4); PLATELET COUNT 288 K/uL (130-400); WHITE BLOOD COUNT 7.97 K/uL (4.8-10.8)
[2017-08-29 12:57] LABS: ALBUMIN 3.6 gm/dl (3.4-5.0); ALT/SGPT 28 U/L (12-78); BLOOD UREA NITROGEN 26 mg/dl (7-18); CARBON DIOXIDE 26 mmol/L (21-32); CHOLESTEROL 187 mg/dl (0-200); CREATININE 1.26 mg/dl (0.60-1.20); GLUCOSE 108 mg/dl (70-99); HEMOGLOBIN A1C 6.5 % (4.5-5.6); POTASSIUM 4.2 mmol/L (3.5-5.1); SODIUM 137 mmol/L (136-145)
[2017-08-29 13:08] LABS: ALKALINE PHOSPHATASE 55 U/L (45-117); AST/SGOT 17 U/L (15-37); LDL CHOLESTEROL CALCULATED 119 mg/dl; TOTAL PROTEIN 7.8 gm/dl (6.4-8.2)
== END | disposition home or self-care (01) ==
LOC: C.LABBFT 08:22
PROVIDERS: ATTEND Internal Medicine
DX: E11.9 Type 2 diabetes mellitus without complications (principal)

== ENCOUNTER → 2017-10-23 | Outpatient (CLI) | payer OTHER ==
[2017-10-23 12:31] LABS: HEMATOCRIT 35.9 % (37-47); HEMOGLOBIN 12.5 g/dL (12.0-16.0); MEAN CELL VOLUME 90.9 fL (80-100); MEAN CORPUSCULAR HEMOGLOBIN 31.6 pg (25-34); MEAN CORPUSCULAR HGB CONC 34.8 g/dl (32-36); RED CELL DISTRIBUTION WIDTH CV 13.4 % (11.5-14.5); RED CELL DISTRIBUTION WIDTH SD 44.8 fL (36.4-46.3); WHITE BLOOD COUNT 5.36 K/uL (4.8-10.8)
[2017-10-23 12:32] LABS: BLOOD UREA NITROGEN 22 mg/dl (7-18); CARBON DIOXIDE 26 mmol/L (21-32); CREATININE 1.33 mg/dl (0.60-1.20); GLUCOSE 183 mg/dl (70-99); LIPASE 181 U/L (73-393); SODIUM 134 mmol/L (136-145)
[2017-10-23 13:17] LABS: PLATELET COUNT 91 K/uL (130-400)
[2017-10-23 13:18] LABS: MEAN PLATELET VOLUME 8.8 fL (7.4-10.4)
== END | disposition home or self-care (01) ==
LOC: C.LABBFT 10:48
PROVIDERS: ATTEND Nurse Practitioner
DX: R10.11 Right upper quadrant pain (principal); M54.9 Dorsalgia, unspecified; R39.9 Unspecified symptoms and signs involving the genitourinary system

== ENCOUNTER → 2017-10-28 | Outpatient (CLI) | payer OTHER ==
[2017-10-28 17:38] LABS: HEMATOCRIT 34.7 % (37-47); HEMOGLOBIN 11.5 g/dL (12.0-16.0); MEAN CELL VOLUME 92.3 fL (80-100); MEAN CORPUSCULAR HEMOGLOBIN 30.6 pg (25-34); MEAN CORPUSCULAR HGB CONC 33.1 g/dl (32-36); MEAN PLATELET VOLUME 8.8 fL (7.4-10.4); PLATELET COUNT 123 K/uL (130-400); RED CELL DISTRIBUTION WIDTH SD 47.4 fL (36.4-46.3); WHITE BLOOD COUNT 9.11 K/uL (4.8-10.8)
[2017-10-28 21:19] LABS: BASO % 1.6 %; BASO ABS # 0.15 K/uL (0-0.2); EOS % 1.4 %; EOS ABS # 0.13 K/uL (0-0.5); IG# 0.03 K/uL (0.00-0.02); LYMPH % 61.8 %; LYMPH ABS # 5.63 K/uL (1.2-3.4); MONO ABS # 0.82 K/uL (0.11-0.59); NEUT % 25.9 %; NEUT ABS # 2.35 K/uL (1.4-6.5)
[2017-10-30 12:45] LABS: EBV EARLY ANTIGEN AB < 9.00 U/ML
== END | disposition home or self-care (01) ==
LOC: C.LABBFT 14:17
PROVIDERS: ATTEND Physician Assistant Medical
DX: R50.9 Fever, unspecified (principal)

== ENCOUNTER → 2017-11-26 | Outpatient (CLI) | payer OTHER | END | disposition home or self-care (01) | LOC: C.PAPS 09:55 | PROVIDERS: ATTEND Physician Assistant | DX: Z01.411 Encounter for gynecological examination (general) (routine) with abnormal findings (principal); R87.612 Low grade squamous intraepithelial lesion on cytologic smear of cervix (LGSIL) ==

== ENCOUNTER → 2017-12-09 | Outpatient (CLI) | payer OTHER | END | disposition home or self-care (01) | LOC: C.PATHSPEC 13:24 | PROVIDERS: ATTEND Obstetrics & Gynecology | DX: R87.619 Unspecified abnormal cytological findings in specimens from cervix uteri (principal) ==

== ENCOUNTER 2019-04-21 21:01 | Inpatient (IN) ==
[2019-04-21] MEDS ORDERED: SODIUM CHLORIDE 0.9% 1000ML 1,000 ML IV SCH (21:45)
[2019-04-21 22:21] LABS: iSTAT Blood Urea Nitrogen > 140 mg/dl (7-18); iSTAT Carbon Dioxide 12 mEq/l (24-31); iSTAT Chloride 108 mEq/L (101-112); iSTAT Creatinine 12.9 mg/dl (0.6-1.3); iSTAT Glucose 123 mg/dl (70-99); iSTAT Hematocrit 41 % (37-47); iSTAT Hemoglobin 13.9 g/dl (12.0-16.0); iSTAT Ionized Calcium 0.92 mmol/l (1.12-1.32); iSTAT Potassium 5.6 mEq/L (3.3-5.0); iSTAT Sodium 132 mEq/L (135-144)
[2019-04-21 22:43] LABS: Basophils # (auto) 0.07 K/uL (0-0.2); Basophils % (auto) 0.5 %; Eosinophils # (auto) 0.23 K/uL (0-0.5); Eosinophils % (auto) 1.8 %; Hemoglobin 13.3 g/dL (12.0-16.0); Immature Granulocytes # (auto) 0.04 K/uL (0.00-0.02); Immature Granulocytes % (auto) 0.3 %; Lymphocytes # (auto) 4.78 K/uL (1.2-3.4); Lymphocytes % (auto) 37.2 %; Mean Corpuscular Hemoglobin 32.3 pg (25-34); Mean Corpuscular Hgb Conc 35.9 g/dL (32-36); Mean Corpuscular Volume 89.8 fL (80-100); Mean Platelet Volume 8.2 fL (7.4-10.4); Monocytes # (auto) 0.71 K/uL (0.11-0.59); Monocytes % (auto) 5.5 %; Neutrophils # (auto) 7.03 K/uL (1.4-6.5); Neutrophils % (auto) 54.7 %; Platelet Count 197 K/uL (130-400); RDW Coefficient of Variation 12.9 % (11.5-14.5); RDW Standard Deviation 42.4 fL (36.4-46.3); Red Blood Count 4.12 M/uL (4.2-5.4); White Blood Count 12.86 K/uL (4.8-10.8)
[2019-04-21 23:13] LABS: Appearance Urine Cloudy (Clear); Bilirubin Urine Negative (Negative); Blood Urine 3+ (Negative); Color Urine Yellow; Epithelial Cell Urine Auto >30 /lpf (0-5); Glucose Urine UA Negative (Negative); Ketones Urine Negative (Negative); Leukocyte Esterase Urine 2+ (Negative); Nitrite Urine Negative (Negative); Protein Urine Trace (Negative); Specific Gravity Urine 1.017 (1.000-1.030); Urobilinogen Urine Negative (Negative)
[2019-04-21 23:27] LABS: Blood Urea Nitrogen 153 mg/dl (7-18); Calcium 9.1 mg/dl (8.5-10.1); Carbon Dioxide 16 mmol/L (21-32); Chloride 101 mmol/L (98-107); Creatine Kinase 206 U/L (26-192); Creatinine Clr Calc Pharmacy 7.9 ml/min; Est GFR (African American) 4.5; Est GFR (Non-African American) 3.9; Glucose 114 mg/dl (70-99); Potassium 4.7 mmol/L (3.5-5.1); Sodium 134 mmol/L (136-145); Troponin I < 0.015 ng/ml (0-0.045)
[2019-04-21 23:28] LABS: Bacteria Urine Automated 1+ (Negative)
[2019-04-21] MEDS ORDERED: SODIUM BICARBONATE 8.4% 75 MEQ in SODIUM CHLORIDE 0.45 % 1,000 ML IV SCH (23:45)
--- NOTE | 2019-04-22 00:26 | Emergency Department Note ---
Entered by Katherin Jean Baptiste acting as a scribe for Xavier Gandhi History of Present Illness General Chief complaint: Abnormal Labs/Diagnostic Testing Stated complaint: KIDNEY FAILURE, REF BY DOCTOR Source: patient History of Present Illness Provider complaint: abnormal labs Onset (ago): hour(s) ([employer]) Maximum Pain Intensity: 4 Relieved By: + none Exacerbated By: + none Associated symptoms: + shortness of breath, + weakness and + other (-blood in urine, -burning/difficulty urination, +muscle spasms); no chest pain Treatments prior to arrival: none The patient is a 39 year old female who presents to the Emergency Room with complaints of abnormal labs prior to arrival. She reports that she was referred her by her PCP. The patient reports that she has been feeling flushed and bloated recently. She denies any abdominal pain, she states that it feels like discomfort. The patient states that she has occasional weakness and shortness of breath. She denies any chest pain, or burning or difficulty during urination. She denies any blood in her urine. The patient reports that she has muscle spasms during night. He reports that she has a history of acute kidney failure in 2017 after being on Januvia. She reports that she was on dialysis for 1.5 months. The patient mentions that she had a recent UTI, where she took Cipro. She denies any treatment prior to arrival. Home Medications Home Medications Medication Instructions Recorded Confirmed Type acetaminophen [Tylenol Extra 500 mg PO Q6H PRN 04/07/19 04/21/19 History Strength] insulin glargine [Lantus Solostar 10 unit SUBCUT QAM 04/07/19 04/21/19 History U-100 Insulin] sertraline 100 mg PO HS 04/07/19 04/21/19 History pravastatin 10 mg tablet 10 mg PO HS #30 tab 04/10/19 04/21/19 Rx omeprazole magnesium 20 mg 20 mg PO DAILY #30 tab 04/21/19 04/21/19 Rx tablet,delayed release Allergies Allergy/AdvReac Type Severity Reaction Status Date / Time aspirin Allergy Intermediate SWELLING Verified 04/21/19 17:29 iodine Allergy Unknown SHELLFISH Verified 04/21/19 17:29 salicylates Allergy Unknown ? Verified 04/21/19 17:29 Past Med/Surg History Surgical History H/O section Hx of adenoidectomy Family History Father Cardiac disorder Lung disease Myocardial infarction Mother Diabetes Hypertension Social History Preferred Language: German Communication Ability: Effective Visual Impairment: No Limitations Hearing Ability: Normal Current Living Situation: Family Feels Safe at Home: Yes Smoking Status: Never smoker Review of Systems See HPI for pertinent positives & negatives. and A total of 10 systems reviewed and were otherwise negative Physical Exam Vital Signs Vital Signs - 24 hr 04/21/19 21:08 04/21/19 22:04 04/22/19 00:01 Temperature 36.7 C Temperature Source Oral Sepsis Recent Fever Within 48 Hours No Sepsis Action Taken by Nursing No Action Required Pulse Rate 103 H 87 91 H Pulse Rate [Finger] 88 Pulse Rate from SpO2 Sensor 90 Respiratory Rate 18 17 19 Respiratory Effort / Characteristics Non-Labored Spontaneous Respiratory Depth Normal Respiratory Pattern Regular Blood Pressure 148/101 H 146/91 H Blood Pressure [Right Arm] 185/116 H Blood Pressure Mean 116 109 Blood Pressure Mean [Right Arm] 139 Blood Pressure Position Sitting Pulse Oximetry 100 99 97 Oxygen Delivery Method Room Air Room Air GENERAL: She is oriented to person, place, and time. She appears well-developed and well-nourished. She does not appear distressed. HENT: Exam performed. Head: Normocephalic and atraumatic. Right Ear: External ear normal. No mastoid tenderness. Left Ear: External ear normal. No mastoid tenderness. Mouth/Throat: The oropharynx is clear and moist. No trismus in the jaw. No dental abscesses or uvula swelling. No oropharyngeal exudate or tonsillar abscesses. EYES: Conjunctivae and EOM are normal. Pupils are equal, round, and reactive to light. Right eye exhibits no discharge. Left eye exhibits no discharge. No scler al icterus. NECK: Normal range of motion. Neck supple. No JVD present. No spinous process tenderness present. No carotid bruit present. No rigidity. No tracheal deviation and normal range of motion present. No Brudzinski's sign and no Kernig's sign noted. CV: Normal rate, regular rhythm, normal heart sounds and intact distal pulses. There is no peripheral edema. Palpable radial pulses bue. PULM/CHEST: Effort normal and breath sounds normal. No respiratory distress. No stridor. She has no wheezes. She has no rales. Chest Wall: She exhibits no tenderness. ABD: The abdomen is soft. Bowel sounds are normal. She has no distension. No mass is present. There is no tenderness. There is no rebound, no guarding, no James's sign and no tenderness at McBurney's point. Rovsig negative MUSC/SKEL: Normal range of motion. There is no peripheral edema, tenderness or deformity. LYMPH: No cervical adenopathy. NEURO: She is alert and oriented to person, place, and time. She has normal strength. No cranial nerve deficit or sensory deficit. Coordination and gait normal. GCS eye subscore is 4. GCS verbal subscore is 5. GCS motor subscore is 6. cerbellar tests wnl. SKIN: Skin is warm and dry. She is not diaphoretic. PSYCH: She has a normal mood and affect. Her behavior is normal. Judgment and thought content normal. Course 2123: The patient was evaluated in room A3, and a complete history and physical examination were performed. EMR reviewed, she was sent here for elevated creatine level by her PCP, Dr. Deshpande. Her outpatient labs showed a creatine of 11.1 and a BUN of 142. Her visit today showed that she was having abdominal pain and she was on Cipro for 10 days for a UTI. 2339: Vital signs stable. EKG shows no arrhythmia. Labs show a BUN of 153 and creatinine of 11. Potassium 4.7. I discussed the patient's case with Dr. Zhao- [facility] Technical Engineer. I discussed the patient's HPI, past medical history of needing dialysis due to Januvia, physical exam, labs the patient presented with and her current labs, he states that there is no need for transfer at this moment. He states that there is no need for emergent dialysis because she is not fluid overloading and a stable potassium. He states that he will evaluate her in the morning to determine if dialysis is needed again. He stated to switch to 0.45 normal saline and 75 milliequivalent of bicarbonate at 100 CC per hour. 2347: Spoke with [facility] Pharmacist, half-normal saline and bicarb drip. Who will make the drip. 0010: I reviewed the patient's case with Dr. Jose- [facility] Hospitalist. He will evaluate the patient for further management. Administered Medications Sodium Bicarbonate 75 meq/ (Sodium Chloride) 1,075 mls @ 100 mls/hr IV .[id number] BRIDGETTE Stop: 04/22/19 10:29 Last Admin: 04/21/19 23:55 Dose: 100 mls/hr Documented by: [id number] Medical Decision Making Medical Records Attestation: I reviewed the patient's medical records. Home Medications Current Medication List: was personally reviewed by me Laboratory Data Attestation: I reviewed the patient's lab results. Result diagrams: 04/21/19 22:29 04/21/19 22:29 Lab Results 04/21/19 04/21/19 04/21/19 Range/Units 21:40 22:07 22:29 WBC 12.86 H (4.8-10.8) K/uL RBC 4.12 L (4.2-5.4) M/uL Hgb 13.3 (12.0-16.0) g/dL POC Hgb 13.9 (12.0-16.0) g/dl Hct 37.0 (37-47) % POC Hct 41 (37-47) % MCV 89.8 (80-100) fL MCH 32.3 (25-34) pg MCHC 35.9 (32-36) g/dL RDW Std Deviation 42.4 (36.4-46.3) fL RDW Coeff of Alexander 12.9 (11.5-14.5) % Plt Count 197 (130-400) K/uL MPV 8.2 (7.4-10.4) fL Immature Gran % (Auto) 0.3 % Neut % (Auto) 54.7 % Lymph % (Auto) 37.2 % Lenoir % (Auto) 5.5 % Eos % (Auto) 1.8 % Baso % (Auto) 0.5 % Immature Gran # (Auto) 0.04 H (0.00-0.02) K/uL Neut # (Auto) 7.03 H (1.4-6.5) K/uL Lymph # (Auto) 4.78 H (1.2-3.4) K/uL Lenoir # (Auto) 0.71 H (0.11-0.59) K/uL Eos # (Auto) 0.23 (0-0.5) K/uL Baso # (Auto) 0.07 (0-0.2) K/uL POC Sodium 132 L (135-144) mEq/L Sodium (136-145) mmol/L POC Potassium 5.6 H (3.3-5.0) mEq/L Potassium (3.5-5.1) mmol/L POC Chloride 108 (101-112) mEq/L Chloride (98-107) mmol/L Carbon Dioxide (21-32) mmol/L POC Total CO2 12 L (24-31) mEq/l Anion Gap (3-11) POC Anion Gap 18.0 (16-25) mmol/L POC BUN > 140 H* (7-18) mg/dl BUN (7-18) mg/dl Creatinine (0.6-1.2) mg/dl POC Creatinine 12.9 H* (0.6-1.3) mg/dl Est Cr Clr Drug Dosing ml/min Est GFR ( Amer) Est GFR (Non-Af Amer) BUN/Creatinine Ratio (10-20) Glucose (70-99) mg/dl POC Glucose (other) 123 H (70-99) mg/dl Calcium (8.5-10.1) mg/dl POC Ioniz Calcium Len 0.92 L (1.12-1.32) mmol/l Total Creatine Kinase (26-192) U/L Troponin I (0-0.045) ng/ml Urine Color Yellow Urine Appearance Cloudy A (Clear) Urine pH 5.0 (4.5-7.5) Ur Specific Walton 1.017 (1.000-1.030) Urine Protein Trace H (Negative) Urine Glucose (UA) Negative (Negative) Urine Ketones Negative (Negative) Urine Blood 3+ H (Negative) Urine Nitrite Negative (Negative) Urine Bilirubin Negative (Negative) Urine Urobilinogen Negative (Negative) Ur Leukocyte Esterase 2+ H (Negative) Urine WBC (Auto) 10-30 H (0-5) /hpf Urine RBC (Auto) 10-30 H (0-4) /hpf U Hyaline Cast (Auto) 1-5 (0-5) /lpf U Epithel Cells (Auto) >30 H (0-5) /lpf Urine Bacteria (Auto) 1+ H (Negative) Urine Yeast Not Reportable 04/21/19 Range/Units 22:29 WBC (4.8-10.8) K/uL RBC (4.2-5.4) M/uL Hgb (12.0-16.0) g/dL POC Hgb (12.0-16.0) g/dl Hct (37-47) % POC Hct (37-47) % MCV (80-100) fL MCH (25-34) pg MCHC (32-36) g/dL RDW Std Deviation (36.4-46.3) fL RDW Coeff of Alexander (11.5-14.5) % Plt Count (130-400) K/uL MPV (7.4-10.4) fL Immature Gran % (Auto) % Neut % (Auto) % Lymph % (Auto) % Lenoir % (Auto) % Eos % (Auto) % Baso % (Auto) % Immature Gran # (Auto) (0.00-0.02) K/uL Neut # (Auto) (1.4-6.5) K/uL Lymph # (Auto) (1.2-3.4) K/uL Lenoir # (Auto) (0.11-0.59) K/uL Eos # (Auto) (0-0.5) K/uL Baso # (Auto) (0-0.2) K/uL POC Sodium (135-144) mEq/L Sodium 134 L (136-145) mmol/L POC Potassium (3.3-5.0) mEq/L Potassium 4.7 (3.5-5.1) mmol/L POC Chloride (101-112) mEq/L Chloride 101 (98-107) mmol/L Carbon Dioxide 16 L (21-32) mmol/L POC Total CO2 (24-31) mEq/l Anion Gap 17.0 H (3-11) POC Anion Gap (16-25) mmol/L POC BUN (7-18) mg/dl BUN 153 H (7-18) mg/dl Creatinine 11.00 H* (0.6-1.2) mg/dl POC Creatinine (0.6-1.3) mg/dl Est Cr Clr Drug Dosing 7.9 ml/min Est GFR ( Amer) 4.5 Est GFR (Non-Af Amer) 3.9 BUN/Creatinine Ratio 14.0 (10-20) Glucose 114 H (70-99) mg/dl POC Glucose (other) (70-99) mg/dl Calcium 9.1 (8.5-10.1) mg/dl POC Ioniz Calcium Len (1.12-1.32) mmol/l Total Creatine Kinase 206 H (26-192) U/L Troponin I < 0.015 (0-0.045) ng/ml Urine Color Urine Appearance (Clear) Urine pH (4.5-7.5) Ur Specific Walton (1.000-1.030) Urine Protein (Negative) Urine Glucose (UA) (Negative) Urine Ketones (Negative) Urine Blood (Negative) Urine Nitrite (Negative) Urine Bilirubin (Negative) Urine Urobilinogen (Negative) Ur Leukocyte Esterase (Negative) Urine WBC (Auto) (0-5) /hpf Urine RBC (Auto) (0-4) /hpf U Hyaline Cast (Auto) (0-5) /lpf U Epithel Cells (Auto) (0-5) /lpf Urine Bacteria (Auto) (Negative) Urine Yeast Imaging Data Radiologist's Impression: CT ABDOMEN & PELVIS Without Contrast: Nonobstructive bowel gas pattern. No colitis. Appendix not identified. No secondary inflammatory changes Mild fatty liver. No radiodense gallstones or pancreatitis. No renal calculi or obstructive changes. IUD. Radiologist: Mayi Arias M.D. Study ready at 23:19 and initial results transmitted at 00:13 ECG Data Attestation: I personally reviewed and interpreted this ECG as follows: Indication: other (abnormal labs) Rate (beats per minute): 88 Rhythm: sinus rhythm Findings: + other (AR, QTC, and QTC intervals are within normal limits, left ventricular hypertrophy, no peaked T waves ); no ST depression and no ST elevation Blood Pressure Blood Pressure Findings: Elevated blood pressure Blood Pressure Disposition: further management by hospitalist GINA Narrative 2122: The patient was evaluated in room A3, and a complete history and physical examination were performed. EMR reviewed, she was sent here for elevated creatine level by her PCP, Dr. Deshpande. Her outpatient labs showed a creatine of 11.1 and a BUN of 142. Her visit today showed that she was having abdominal pain and she was on Cipro for 10 days for a UTI. 2339: Vital signs stable. EKG shows no arrhythmia. Labs show a BUN of 153 and creatinine of 11. Potassium 4.7. I discussed the patient's case with Dr. Zhao- [facility] Technical Engineer. I discussed the patient's HPI, past medical history of needing dialysis due to Januvia, physical exam, labs the patient presented with and her current labs, he states that there is no need for transfer at this moment. He states that there is no need for emergent dialysis because she is not fluid overloading and a stable potassium. He states that he will evaluate her in the morning to determine if dialysis is needed again. He stated to switch to 0.45 normal saline and 75 milliequivalent of bicarbonate at 100 CC per hour. 2347: Spoke with [facility] Pharmacist, half-normal saline and bicarb drip. Who will make the drip. 0010: I reviewed the patient's case with Dr. Jose- [facility] Hospitalist. He will evaluate the patient for further management. Impression & Plan RADHA (acute kidney injury) Discharge Plan Visit Data Chief Complaint: Abnormal Labs/Diagnostic Testing Stated Complaint: KIDNEY FAILURE, REF BY DOCTOR ED Provider: Xavier Gandhi Discharge Problem: RADHA (acute kidney injury) Patient Disposition: Being Evaluated by Hospitalist Forms Stand Alone Forms: My [facility] Prescriptions Prescriptions: No Action pravastatin 10 mg tablet 10 mg PO HS Qty: 30 RF: 5 Prilosec OTC 20 mg tablet,delayed release (DR/EC) 20 mg PO DAILY Qty: 30 RF: 2 sertraline 100 mg tablet 100 mg PO HS RF: 0 acetaminophen [Tylenol Extra Strength] 500 mg Tablet 500 mg PO Q6H PRN (Reason: Pain) RF: 0 Lantus Solostar U-100 Insulin 100 unit/mL (3 mL) insulin pen 10 unit subcut QAM RF: 0 Referrals Referrals: Alexandro Malhotra III, MD [Primary Care Provider] - The scribe's documentation has been prepared under my direction and personally reviewed by me in its entirety. I confirm that the note above accurately reflects all work, treatment, procedures, and medical decision making performed by me.
--- NOTE | 2019-04-22 02:02 | History & Physical Report ---
Date of Service April 22, 2019 Assessment & Plan (1) RADHA (acute kidney injury): 39-year-old female with history of hypertension, hyperlipidemia, diabetes, depression, anemia presents with weakness, shortness of breath on exertion and abdominal discomfort today. Prolonged history of dealing with UTI-like symptoms since 03/31/2019 and being on antibiotics Macrobid and ciprofloxacin. Found to have significant RADHA today. Metabolic acidosis in the setting of acute kidney injury: Likely from dehydration in the setting of recent diarrhea status post taking Cipro versus medication related after taking Macrobid and ciprofloxacin Patient has history of developing significant RADHA 2017 after taking Trulicity, required 1/2 months of dialysis WBC: 12.8, afebrile BUN/creatinine 153/11, GFR 3.9 CT abdomen: No acute abnormality, no renal calculi or obstruction Sodium 134, potassium 4.7, bicarb 16, calcium 9.1, anion gap 17 EK normal sinus rhythm QTc 447, Troponin negative Started on bicarb 75 meQ and normal saline at 100 cc/h Nephrology consulted: Dr. Zhao will see patient tomorrow morning per ED Follow labs closely Positive UA UA positive but no UTI symptoms, no treatment pending urine culture as cultures have been negative in the past with transient symptoms Mild rhabdomyolysis in the setting of RADHA Having some calf cramps Total CK: 206 On IV fluids DM Continue home Lantus On SSI Hyperlipidemia Continue home pravastatin Depression Continue home sertraline FEN/GI: Diabetic diet, encourage p.o. hydration DVT prophylaxis: SCDs only, encourage ambulation Code: Full Disposition: PCU (2) HTN (hypertension): (3) Hyperlipidemia: (4) Depression: (5) Diabetes: (6) Anemia: History of Present Illness Primary Care Provider: Alexandro Malhotra MD 39-year-old female with history of hypertension, hyperlipidemia, diabetes, depression, anemia presents with weakness, shortness of breath on exertion and abdominal discomfort today. Prolonged history of dealing with UTI-like symptoms and being on antibiotics see below. PCP called on 03/31 and UA collected: for possible UTI symptoms, urine culture was unremarkable although urinalysis positive leukocyte estrace and 5-10 WBC/HPF although epithelial cells were elevated at greater than 30/lpf. Nitrofurantoin was prescribed but she did not take it then as symptoms improved. 03/31 culture was contaminated. Per ED note on 04/07: 2 nights ago she woke up in the middle night with severe left flank pain that moved downward and then went away. Also had urinary frequency, urgency and dysuria. Macrotid 1 tab then too. CBC and differential, renal profile, LFTs and lipase levels were unremarkable and CT negative too. Urinalysis 2+ LE. Patient was given 1 L normal saline. Urine culture was negative Per PCP note on 04/08: Fever 101 this morning. She overall feels poorly and continues to have some left flank discomfort intermittently and dysuria intermittently. Pt had UTI symptoms, abnormal urinalysis and ongoing fever so treated with ciprofloxacin 250 mg b.i.d. for 7 days. PT reports only taking it for 5 days. Per PCP note on 04/13: Dr Malhotra on 04/08/19 started on cipro for UTI. Pt no better, weak, having lower abd pressure/discomfort. No fever or chills. No dysuria, hematuria, no flank pain. No abnormal vaginal discharge/bleeding. No BM issues. Urine dip in the office cloudy urine, +2 LE, +4 blood, but no nitrates. Asked to stop cipro (especially since it has not been beneficial but rather has made her feel worse) and told to take macrobid (which is bacteriostatic and should be tolerated better). Per pt took 3 doses then was told to stop it as 04/13 culture grew lactobacillus. Per PCP note 04/18: Per pt cipro "tortured" her so stopped it after 5 days. Urinary sxs resolved but she developed bloating with dysgeusia and increased frequency of BMs with soft, discolored stools (green or orange.) She does have some urinary urgency now but no dysuria. Some blood with wiping but no true rectal bleeding. No fevers since she finished the cipro. Stool cultures ordered then which were negative. Per PCP note 04/21: Diarrhea has started to resolve, but she feels bloated and has a lot of belching. Also gets lightheaded when changing positions - admits that she has not been drinking as much due to her recent diarrhea. Labs ordered. Abnormal. Pt presented to the ED. TODAY: Complaining of weakness, shortness of breath on exertion and abdominal discomfort. Denies any fever, chills, chest pain, abdominal pain, nausea, dysuria, increased urinary frequency, hematuria, hematochezia, melena, diarrhea. Reports occasional headaches during illness but not any right now and had vomited twice when she was febrile in the past. Stool was more formed today, nonbloody and brown. 1 week ago reports was not producing any urine at all but gradually producing more urine and feeling better now. Denies any abd pain, n/v/d, URI sxs, dysuria, hematuria, LE edema or rashes Of note: Acute renal failure after taking Trulicity in 2017 requiring 6 weeks of dialysis Denies drinking alcohol, smoking tobacco or using recreational drugs Allergies Allergy/AdvReac Type Severity Reaction Status Date / Time aspirin Allergy Intermediate SWELLING Verified 04/21/19 17:29 iodine Allergy Unknown SHELLFISH Verified 04/21/19 17:29 salicylates Allergy Unknown ? Verified 04/21/19 17:29 Home Medications Home Medications Medication Instructions Recorded Confirmed Type acetaminophen [Tylenol Extra 500 mg PO Q6H PRN 04/07/19 04/21/19 History Strength] insulin glargine [Lantus Solostar 10 unit SUBCUT QAM 04/07/19 04/21/19 History U-100 Insulin] sertraline 100 mg PO HS 04/07/19 04/21/19 History pravastatin 10 mg tablet 10 mg PO HS #30 tab 04/10/19 04/21/19 Rx omeprazole magnesium 20 mg 20 mg PO DAILY #30 tab 04/21/19 04/21/19 Rx tablet,delayed release Past Med/Surg History Surgical History H/O section Hx of adenoidectomy Family History Father Cardiac disorder Lung disease Myocardial infarction Mother Diabetes Hypertension Social History Preferred Language: Greek Communication Ability: Effective Visual Impairment: No Limitations Hearing Ability: Normal Beliefs That Will Affect Care: None Current Living Situation: Family Other Information That Helps Us Care for You: No Feels Safe at Home: Yes Safety Concerns: Feels Safe At This Time Smoking Status: Never smoker Hx Alcohol Use: No Hx Substance Use: No Review of Systems Review of Systems: As per HPI Physical Exam Physical Exam: General: In NAD HEENT: Dry oral mucous membranes Neuro: A&O x 4, thinking process not very clear and struggles when providing a history Pulm: CTAB equal breath sounds bilaterally CV: RRR, no m/r/g Abdomen:+BS, no TTP in all quadrants, non-distended Back: No CVA tenderness LE: no LE edema, no calf TTP Results & Data Vital Signs (Past 12 Hours) Vital Signs Temp Pulse Pulse Resp BP BP Pulse Ox 04/22/19 00:01 91 H 19 146/91 H 97 04/21/19 22:04 87 88 17 185/116 H 99 04/21/19 21:08 36.7 C 103 H 18 148/101 H 100 Laboratory Results Abnormal lab results 04/21/19 04/21/19 04/21/19 Range/Units 21:40 22:07 22:29 WBC 12.86 H (4.8-10.8) K/uL RBC 4.12 L (4.2-5.4) M/uL Immature Gran # (Auto) 0.04 H (0.00-0.02) K/uL Neut # (Auto) 7.03 H (1.4-6.5) K/uL Lymph # (Auto) 4.78 H (1.2-3.4) K/uL Gooding # (Auto) 0.71 H (0.11-0.59) K/uL POC Sodium 132 L (135-144) mEq/L Sodium (136-145) mmol/L POC Potassium 5.6 H (3.3-5.0) mEq/L Carbon Dioxide (21-32) mmol/L POC Total CO2 12 L (24-31) mEq/l Anion Gap (3-11) POC BUN > 140 H* (7-18) mg/dl BUN (7-18) mg/dl Creatinine (0.6-1.2) mg/dl POC Creatinine 12.9 H* (0.6-1.3) mg/dl Glucose (70-99) mg/dl POC Glucose (other) 123 H (70-99) mg/dl POC Ioniz Calcium Len 0.92 L (1.12-1.32) mmol/l Total Creatine Kinase (26-192) U/L Urine Appearance Cloudy A (Clear) Urine Protein Trace H (Negative) Urine Blood 3+ H (Negative) Ur Leukocyte Esterase 2+ H (Negative) Urine WBC (Auto) 10-30 H (0-5) /hpf Urine RBC (Auto) 10-30 H (0-4) /hpf U Epithel Cells (Auto) >30 H (0-5) /lpf Urine Bacteria (Auto) 1+ H (Negative) 04/21/19 Range/Units 22:29 WBC (4.8-10.8) K/uL RBC (4.2-5.4) M/uL Immature Gran # (Auto) (0.00-0.02) K/uL Neut # (Auto) (1.4-6.5) K/uL Lymph # (Auto) (1.2-3.4) K/uL Gooding # (Auto) (0.11-0.59) K/uL POC Sodium (135-144) mEq/L Sodium 134 L (136-145) mmol/L POC Potassium (3.3-5.0) mEq/L Carbon Dioxide 16 L (21-32) mmol/L POC Total CO2 (24-31) mEq/l Anion Gap 17.0 H (3-11) POC BUN (7-18) mg/dl BUN 153 H (7-18) mg/dl Creatinine 11.00 H* (0.6-1.2) mg/dl POC Creatinine (0.6-1.3) mg/dl Glucose 114 H (70-99) mg/dl POC Glucose (other) (70-99) mg/dl POC Ioniz Calcium Len (1.12-1.32) mmol/l Total Creatine Kinase 206 H (26-192) U/L Urine Appearance (Clear) Urine Protein (Negative) Urine Blood (Negative) Ur Leukocyte Esterase (Negative) Urine WBC (Auto) (0-5) /hpf Urine RBC (Auto) (0-4) /hpf U Epithel Cells (Auto) (0-5) /lpf Urine Bacteria (Auto) (Negative) Medications Administered Current Inpatient Medications Sodium Bicarbonate 75 meq/ (Sodium Chloride) 1,075 mls @ 100 mls/hr IV .[id number] BRIDGETTE Stop: 04/22/19 10:29 Last Admin: 04/21/19 23:55 Dose: 100 mls/hr Documented by: Code Status & VTE Plan Code Status Full per discussion with patient VTE Prophylaxis Plan VTE Prophylaxis will be ordered: Yes Supervising Physician Co-Signing Physician Notes Attending addendum: I have physically seen this patient, have supervised the medical residents activities, and agree with the H&P unless as otherwise noted. Assessment and Plan: Severe acute kidney injury- Creatinine 11.00, BUN 153. Continue aggressive fluid rehydration. BMP magnesium level every 6 hours. Continue bicarb drip as recommended by nephrology. Follow urine culture and sensitivity. Recent antibiotic exposure with Cipro and nitrofurantoin. Follow CK, mildly elevated 206, question developing rhabdomyolysis. Diabetes mellitus- Continue Lantus as per home dosing. Placed on Accu-Cheks before meals and at bedtime with NovoLog coverage per scale. Remainder of orders and medications as noted. PG Care Time/CCT Total # of Minutes Spent Total Time Spent with Patient: Total time spent is greater than 50% in coordination of care (as documented) at patient's floor/unit and/or counseling patient: Resident Activity Tracking Resident Involvement: Resident Care Provided Care Provided: Adult Hospital Medicine
[2019-04-22] MEDS ORDERED: ACETAMINOPHEN 500 MG TAB PO PRN (03:16)
[2019-04-22] MEDS ORDERED: ONDANSETRON INJ 2 MG/ML 2 ML VIAL IV PRN (03:16)
[2019-04-22] MEDS ORDERED: GLUCAGON FOR INJ 1 MG VIAL SQ PRN (03:30)
[2019-04-22] MEDS ORDERED: CARBOHYDRATES FOR HYPOGLYCEMIA PO PRN (03:30)
[2019-04-22] MEDS ORDERED: GLUCOSE 10 TABS/TUBE PO PRN (03:30)
[2019-04-22] MEDS ORDERED: DEXTROSE 50% 50 ML SYRINGE IV PRN (03:30)
[2019-04-22] MEDS ORDERED: GLUCOSE 40% GEL 15 GM TUBE PO PRN (03:30)
--- NOTE | 2019-04-22 07:48 | CT Scan Report ---
CT SCAN OF THE ABDOMEN AND PELVIS WITHOUT IV CONTRAST CLINICAL HISTORY: Left-sided abdominal pain. Bloating. COMPARISON STUDY: Abdominal CT dated 04/07/2019. TECHNIQUE: CT scan of the abdomen and pelvis is performed from the lung bases to the proximal femora. Images are reviewed in the axial, sagittal, and coronal planes. IV contrast was not administered for this examination due to poor renal function. A dose lowering technique was utilized adhering to the principles of ALARA. CT DOSE: 1230.82 mGy.cm FINDINGS: Lung bases: The heart is normal in size and without pericardial effusion. There is a small fat-contai maria guadalupe Bochdalek hernia at the right lung base. A calcified granuloma is noted in the left lower lobe. The lung bases are otherwise clear. Liver: The unenhanced liver is mildly enlarged, measuring 20.7 cm in length. The liver is otherwise n ormal in contour and attenuation. There is no intrahepatic biliary ductal dilatation. Gallbladder: Contracted. Spleen: Normal in size and attenuation. Pancreas: Unremarkable. Adrenal glands: Unremarkable. Kidneys: The unenhanced kidneys are normal in size and without hydronephrosis. There are no renal nicole culi identified. There is no evidence of contour deforming renal mass lesion. Abdominal vasculature: The abdominal aorta is normal in course and caliber. Bowel: The small bowel and colon are normal in course and caliber. The appendix is well-visualized a nd normal. Peritoneum: There is no intraperitoneal free air or abdominal ascites. Lymphadenopathy: None. Pelvic viscera: The bladder, uterus, and adnexa are normal as visualized noting an intrauterine devic e in place. Small ovarian follicles are identified. Skeletal structures: No lytic or blastic lesions are seen. IMPRESSION: There are no acute infectious or inflammatory findings in the abdomen or pelvis. Electronically signed by: Maen Miles M.D. 04/22/2019 7:47 AM
[2019-04-22] MEDS: PANTOprazole 40 MG TAB PO SCH (08:01)
[2019-04-22] MEDS: INSULIN GLARGINE SOLOSTAR 100 UNITS/ML 3 ML PEN SQ SCH (08:05)
[2019-04-22] MEDS: INSULIN ASPART 100 UNITS/ML 3 ML PEN SC SCH ×4 (08:05→20:08)
[2019-04-22 09:22] LABS: Hemoglobin 11.5 g/dL (12.0-16.0); Mean Corpuscular Hgb Conc 35.9 g/dL (32-36); Mean Corpuscular Volume 89.1 fL (80-100); Mean Platelet Volume 8.3 fL (7.4-10.4); Platelet Count 160 K/uL (130-400); RDW Coefficient of Variation 12.8 % (11.5-14.5); RDW Standard Deviation 41.8 fL (36.4-46.3); Red Blood Count 3.59 M/uL (4.2-5.4); White Blood Count 8.89 K/uL (4.8-10.8)
--- NOTE | 2019-04-22 09:29 | Nephrology Consultation ---
Date of Consultation April 22, 2019 Assessment & Plan (1) RADHA (acute kidney injury): Jamee is a 39-year-old female admitted with RADHA and gap metabolic acidosis in the setting are recent recurrent urinary tract infection, was moved exposure to antibiotics including Macrobid and ciprofloxacin as well as previous year of ibuprofen use. Urinalysis is low grade proteinuria and microscopic hematuria, or CT abdomen pelvis was negative for postrenal obstruction. 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 intake. With prior history of dialysis requiring acute kidney injury, she certainly has risk factor for recurrent acute kidney injury. Can't exclude possibility for acute GN however seems less likely but considering proteinuria, microscopic hematuria and degree of renal impairment, will order serological workup. --order serological workup including BOOM, complements, ANCA, anti-GBM antibody --repeat UA, urine eosinophil --Continue to avoid nephrotoxic medications including all NSAIDs, DERICK-inhibitor ARB --continue IV fluid with sodium bicarb for now however need to assess volume status closely for his volume overload --if blood pressure not at goal consider starting on amlodipine however at this time blood pressure looks fine Will follow Thank you for allowing me to participate in your patient's care. It was a pleasure to see Jamee (2) Increased anion gap metabolic acidosis: (3) HTN (hypertension): (4) Diabetes: (5) Proteinuria: (6) Microscopic hematuria: History of Present Illness Reason for Consultation: RADHA, Metabolic acidosis. Attending Physician: Addison Reeder MD History of Present Illness Jamee Smith a 39-year-old female with past medical history significant for hypertension, diabetes, prior history dialysis requiring acute kidney injury in 2017 admitted to hospital with an episode of acute kidney injury and metabolic acidosis. Nephrology consult was requested to manage acute kidney injury and electrolyte abnormality and evaluate for need for emergency dialysis. Electronic medical records including labs and imaging reviewed in detail during patient's visit. Jamee has stage 2/3a CKD, b/l cr has been around 1.2-1.3 secondary to residual renal impairment from prior dialysis requiring RADHA. She had an episode of dialysis requiring acute kidney injury in 2017 when she was on dialysis for almost 2 weeks with eventual recovery and taken off of dialysis and since then her renal function has been normal. Acute kidney injury at that time was thought to be secondary to acute interstitial nephritis with Trulicity which was started 2-3 weeks prior to the event. Recently she had been having recurrent urinary tract infection which started 3-4 weeks ago, initially treated with Macrobid subsequently as she remained symptomatic started on ciprofloxacin. After taking ciprofloxacin for 5 days she fell like it was not working for her and she was having multiple symptoms including nausea, bloating and overall feeling weak and tired and stopped Ciprofloxacin which was almost 2 weeks ago. Around the same time she reports some ibuprofen for Few days. She was on metoprolol for hypertension which she stopped taking few weeks ago as she did not feel well with that. Was not on DERICK-inhibitor or ARB. Has been on omeprazole 20 milligram daily at home. Yesterday she had lab ordered by her PCP and in the evening she was called with abnormal labs and advised to come to ED. Her creatinine was 12.9 and BUN 153. Had gap metabolic acidosis. UA with proteinuria and hematuria. CT A/P negative for hydronephrosis. Potassium was normal. She reports having normal urine output at home and although she did not feel well but she reported p.o. intake has been adequate. Denies fever, chills, arthralgia, skin rash. Her blood pressure has been variable, but no hypotension. She was started on sodium bicarb drip since admission and currently running at 100 mL/h. she denies any shortness of breath chest pain. Denies nausea or vomiting. Overall feels tired however she already started to feel better. Allergies Allergy/AdvReac Type Severity Reaction Status Date / Time aspirin Allergy Intermediate SWELLING Verified 04/21/19 17:29 iodine Allergy Unknown SHELLFISH Verified 04/21/19 17:29 salicylates Allergy Unknown ? Verified 04/21/19 17:29 Home Medications Home Medications Medication Instructions Recorded Confirmed Type acetaminophen [Tylenol Extra 500 mg PO Q6H PRN 04/07/19 04/21/19 History Strength] insulin glargine [Lantus Solostar 10 unit SUBCUT QAM 04/07/19 04/21/19 History U-100 Insulin] sertraline 100 mg PO HS 04/07/19 04/21/19 History pravastatin 10 mg tablet 10 mg PO HS #30 tab 04/10/19 04/21/19 Rx omeprazole magnesium 20 mg 20 mg PO DAILY #30 tab 04/21/19 04/21/19 Rx tablet,delayed release Patient History Surgical History H/O section Hx of adenoidectomy Family History Father Cardiac disorder Lung disease Myocardial infarction Mother Diabetes Hypertension Social History Preferred Language: Pashto Communication Ability: Effective Visual Impairment: No Limitations Hearing Ability: Normal Beliefs That Will Affect Care: None Current Living Situation: Family Other Information That Helps Us Care for You: No Feels Safe at Home: Yes Safety Concerns: Feels Safe At This Time Smoking Status: Never smoker Hx Alcohol Use: No Hx Substance Use: No Review of Systems Review of Systems: All systems reviewed & are unremarkable except as noted in HPI & below Physical Exam Constitutional: WD/WN, vitals as above well developed and well nourished; no acute distress Eyes: PERRL, conjunctivae normal, anicteric sclerae ENMT: external ear and nose normal, oropharynx normal Ears: no hearing impairment Neck: trachea midline Respiratory: normal respiratory effort, lungs clear to auscultation no cough Auscultation: no crackles, no rales and no wheezes Cardiovascular: RRR, no murmur, no edema Gastrointestinal (Abdomen): normal bowel sounds, soft, nontender, no hepatosplenomegaly Percussion/Palpation: abdomen nontender, no guarding and abdomen not rigid Musculoskeletal: Extremities: extremities normal to inspection Gait: normal gait Skin: no rashes, warm and dry Neurologic: moves all extremities and awake Psychiatric: A+Ox3, euthymic affect Results & Data Vital Signs (Past 12 Hours) Vital Signs Temp Pulse Pulse Resp BP BP Pulse Ox 04/22/19 06:59 36.6 C 97 H 16 121/84 98 04/22/19 02:50 36.4 C L 86 18 128/84 100 04/22/19 02:15 95 H 16 04/22/19 02:00 95 H 19 04/22/19 01:45 93 H 04/22/19 01:30 100 H 25 H 04/22/19 01:15 92 H 19 04/22/19 01:00 90 22 04/22/19 00:46 109 H 9 L 04/22/19 00:31 93 H 16 144/103 H 97 04/22/19 00:30 90 22 97 04/22/19 00:15 94 H 19 98 04/22/19 00:01 91 H 19 146/91 H 97 04/21/19 22:04 87 88 17 185/116 H 99 PG Care Time/CCT Total # of Minutes Spent Total Time Spent with Patient: Total time spent is greater than 50% in coordination of care (as documented) at patient's floor/unit and/or counseling patient:
[2019-04-22 09:58] LABS: BUN Creatinine Ratio 14.9 (10-20); Calcium 8.5 mg/dl (8.5-10.1); Creatinine Clr Calc Pharmacy 8.9 ml/min; Est GFR (African American) 5.1; Est GFR (Non-African American) 4.4; Potassium 4.2 mmol/L (3.5-5.1)
[2019-04-22] MEDS: SODIUM BICARBONATE 8.4% 75 MEQ in SODIUM CHLORIDE 0.45 % 1,000 ML IV SCH ×2 (11:02→19:55)
[2019-04-22 11:08] LABS: Appearance Urine Clear (Clear); Bilirubin Urine Negative (Negative); Blood Urine 3+ (Negative); Cast Urine Automated 0 /lpf (0-5); Color Urine Yellow; Epithelial Cell Urine Auto >30 /lpf (0-5); Glucose Urine UA Negative (Negative); Ketones Urine Negative (Negative); Leukocyte Esterase Urine 1+ (Negative); Nitrite Urine Negative (Negative); Protein Urine Negative (Negative); RBC Urine Automated 0-4 /hpf (0-4); Specific Gravity Urine 1.016 (1.000-1.030); Urobilinogen Urine Negative (Negative); pH Urine 5.5 (4.5-7.5)
--- NOTE | 2019-04-22 11:11 | Ultrasound Report ---
EXAMINATION: RENAL ULTRASOUND CLINICAL HISTORY: Acute renal failure COMPARISON STUDY: CT scan dated 05/18/2019 FINDINGS: The right kidney measures 12.4 cm. The left kidney measures 11.2 cm. There is no evidence of hydronephrosis. There are no renal masses. No bladder abnormalities are visualized. Bilateral ureteral jets were visualized. IMPRESSION : Normal renal ultrasound. Electronically signed by: Austen Lucas M.D. 04/22/2019 11:09 AM
[2019-04-22 11:29] LABS: Creatinine Urine Random 57.6 mg/dl; Protein Creatinine Ratio Urine 0.4 (0-0.2); Total Protein Urine Random 25.2 mg/dl (0-11.9)
[2019-04-22 11:34] LABS: Bacteria Urine Automated 1+ (Negative)
--- NOTE | 2019-04-22 16:50 | History & Physical Bridge Note ---
Date of Service April 22, 2019 History & Physical Bridge Note Patient seen and examined today. Unclear cause of her significant ARF. Had a day or two of low urine output about 1 week ago, but otherwise fairly good PO intake. Nephrology consulted. Will monitor Cr.
[2019-04-22] MEDS: PRAVASTATIN SOD 10 MG TAB PO SCH (19:58)
[2019-04-22] MEDS: SERTRALINE HCL 100 MG TABLET PO SCH (19:58)
[2019-04-23] MEDS: SODIUM BICARBONATE 8.4% 75 MEQ in SODIUM CHLORIDE 0.45 % 1,000 ML IV SCH (06:27)
[2019-04-23 07:25] LABS: Hematocrit (blood only) 30.6 % (37-47); Hemoglobin 10.8 g/dL (12.0-16.0); Mean Corpuscular Hemoglobin 31.4 pg (25-34); Mean Corpuscular Hgb Conc 35.3 g/dL (32-36); Mean Platelet Volume 8.1 fL (7.4-10.4); Platelet Count 146 K/uL (130-400); RDW Coefficient of Variation 12.8 % (11.5-14.5); RDW Standard Deviation 41.3 fL (36.4-46.3); Red Blood Count 3.44 M/uL (4.2-5.4); White Blood Count 6.64 K/uL (4.8-10.8)
[2019-04-23 08:02] LABS: Albumin Level 3.6 gm/dl (3.4-5.0); BUN Creatinine Ratio 16.3 (10-20); Calcium 7.9 mg/dl (8.5-10.1); Creatinine Clr Calc Pharmacy 10.4 ml/min; Est GFR (African American) 6.1; Est GFR (Non-African American) 5.3; Magnesium 2.7 mg/dl (1.8-2.4); Phosphorus 8.5 mg/dl (2.5-4.9)
[2019-04-23] MEDS: INSULIN ASPART 100 UNITS/ML 3 ML PEN SC SCH ×4 (08:52→21:46)
[2019-04-23] MEDS: INSULIN GLARGINE SOLOSTAR 100 UNITS/ML 3 ML PEN SQ SCH (08:53)
[2019-04-23] MEDS: PANTOprazole 40 MG TAB PO SCH (08:53)
--- NOTE | 2019-04-23 09:38 | Nephrology Progress Note ---
Date of Service April 23, 2019 Assessment & Plan (1) RADHA (acute kidney injury): Jamee is a 39-year-old female admitted with RADHA and gap metabolic acidosis in the setting are recent recurrent urinary tract infection, was moved exposure to antibiotics including Macrobid and ciprofloxacin as well as previous year of ibuprofen use. Urinalysis is low grade proteinuria and microscopic hematuria, or CT abdomen pelvis was negative for postrenal obstruction. 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 intake. With prior history of dialysis requiring acute kidney injury, she certainly has risk factor for recurrent acute kidney injury. Can't exclude possibility for acute GN however seems less likely Renal function continues to improve, electrolyte , BP, volume status acceptable. --encourage po intake, to keep even with post RADHA diuresis, DC IV fluid if po intake adequate as electrolyte abnormality resolved --Continue to avoid nephrotoxic medications including all NSAIDs, DERICK-inhibitor ARB Will follow Thank you for allowing me to participate in your patient's care. It was a pleasure to see Jamee (2) Increased anion gap metabolic acidosis: (3) HTN (hypertension): (4) Diabetes: (5) Proteinuria: (6) Microscopic hematuria: Subjective Jamee was seen and examined this am. Overall doing well, asymptomatic. Renal function continues to improve, electrolyte acceptable. BP fair. Decent UO, 3 L, net + 1 L. Review of Systems Review of Systems: All systems reviewed & are unremarkable except as noted in HPI & below Physical Exam Constitutional: WD/WN, vitals as above well developed and well nourished; no acute distress Neck: trachea midline Respiratory: normal respiratory effort, lungs clear to auscultation no cough Auscultation: no crackles, no rales and no wheezes Cardiovascular: RRR, no murmur, no edema Neurologic: moves all extremities and awake Psychiatric: A+Ox3, euthymic affect Results & Data Vital Signs (Past 12 Hours) Vital Signs Temp Pulse Resp BP Pulse Ox 04/23/19 07:22 36.6 C 80 20 128/84 100 04/23/19 04:05 36.6 C 86 16 116/71 100 04/22/19 22:25 36.8 C 83 19 126/83 100 PG Care Time/CCT Total # of Minutes Spent Total Time Spent with Patient: Total time spent is greater than 50% in coordination of care (as documented) at patient's floor/unit and/or counseling patient:
--- NOTE | 2019-04-23 18:22 | Hospitalist Progress Note ---
Date of Service April 23, 2019 Assessment & Plan (1) RADHA (acute kidney injury): Unclear cause of her RADHA. Possibly due to AIN from her ciprofloxacin vs. ATN from dehydration, though she reports good PO intake prior to all this occurring. - Continue to monitor Cr - Will stop IV fluids as her PO intake is good - Continue to avoid nephrotoxic medications including all NSAIDs, DERICK-inhibitor ARB (2) Increased anion gap metabolic acidosis: Due to RADHA - See above (3) Diabetes: Last A1c was 7.1% from about 1 year ago. - Continuing home Lantus 10 units QAM - Sliding scale insulin - Get A1c in the morning (4) HTN (hypertension): BP has been generally high-normal with one reading of 180/110 during first day of admission. - Monitor - Follow up outpatient for possible HTN medication - Could do hydralazine PRN (5) Depression: Some anxiety about home & work stressors and certainly about current health issue. - Continue home sertraline (6) GERD (gastroesophageal reflux disease): - Continue PPI (7) DVT prophylaxis: Lovenox Subjective Feeling fairly fine today. No major concerns. Urinating a lot from the IV fluids. No dysuria. Review of Systems Review of Systems: All systems reviewed & are unremarkable except as noted in HPI & below Physical Exam Constitutional: WD/WN, vitals as above + obese Eyes: EOM intact bilaterally; no conjunctival abnormality ENMT: external ear and nose normal, oropharynx normal Neck: trachea midline, no thyromegaly normal visual inspection Respiratory: normal respiratory effort, lungs clear to auscultation no respiratory distress Cardiovascular: RRR, no murmur, no edema Gastrointestinal (Abdomen): Inspection/Auscultation: abdomen normal to inspection; abdomen not distended Musculoskeletal: no cyanosis or clubbing, extremities motor strength 5/5 Skin: no rashes, warm and dry Neurologic: moves all extremities and awake Psychiatric: Orientation: alert, oriented to person and cooperative Mood: + anxious mood Results & Data Vital Signs (Past 12 Hours) Vital Signs Temp Pulse Pulse Resp BP Pulse Ox 04/23/19 11:41 36.9 C 82 18 146/100 H 100 04/23/19 08:00 78 04/23/19 07:22 36.6 C 80 20 128/84 100 PG Care Time/CCT Total # of Minutes Spent Total Time Spent with Patient: Total time spent is greater than 50% in co ordination of care (as documented) at patient's floor/unit and/or counseling patient:
[2019-04-23] MEDS: SERTRALINE HCL 100 MG TABLET PO SCH (22:03)
[2019-04-23] MEDS: PRAVASTATIN SOD 10 MG TAB PO SCH (22:03)
[2019-04-24 07:26] LABS: Hematocrit (blood only) 29.5 % (37-47); Hemoglobin 10.5 g/dL (12.0-16.0); Mean Corpuscular Hemoglobin 31.9 pg (25-34); Mean Corpuscular Hgb Conc 35.6 g/dL (32-36); Mean Corpuscular Volume 89.7 fL (80-100); Mean Platelet Volume 8.5 fL (7.4-10.4); Platelet Count 148 K/uL (130-400); RDW Coefficient of Variation 12.6 % (11.5-14.5); RDW Standard Deviation 40.9 fL (36.4-46.3); Red Blood Count 3.29 M/uL (4.2-5.4); White Blood Count 6.49 K/uL (4.8-10.8)
[2019-04-24 07:56] LABS: Albumin Level 3.5 gm/dl (3.4-5.0); BUN Creatinine Ratio 17.2 (10-20); Calcium 7.9 mg/dl (8.5-10.1); Creatinine Clr Calc Pharmacy 12.2 ml/min; Est GFR (African American) 7.4; Est GFR (Non-African American) 6.4; Magnesium 2.3 mg/dl (1.8-2.4); Phosphorus 7.1 mg/dl (2.5-4.9); Potassium 3.8 mmol/L (3.5-5.1)
[2019-04-24 08:03] LABS: Estimated Average Glucose 194 mg/dl; Hemoglobin A1C 8.4 % (4.5-5.6)
[2019-04-24] MEDS: INSULIN ASPART 100 UNITS/ML 3 ML PEN SC SCH ×4 (08:19→21:42)
[2019-04-24] MEDS: INSULIN GLARGINE SOLOSTAR 100 UNITS/ML 3 ML PEN SQ SCH (08:19)
--- NOTE | 2019-04-24 08:21 | Nephrology Progress Note ---
Date of Service April 24, 2019 Assessment & Plan (1) RADHA (acute kidney injury): Jamee is a 39-year-old female admitted with RADHA and gap metabolic acidosis in the setting are recent recurrent urinary tract infection, was moved exposure to antibiotics including Macrobid and ciprofloxacin as well as previous year of ibuprofen use. Urinalysis is low grade proteinuria and microscopic hematuria, or CT abdomen pelvis was negative for postrenal obstruction. 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 intake. With prior history of dialysis requiring acute kidney injury, she certainly has risk factor for recurrent acute kidney injury. Can't exclude possibility for acute GN however seems less likely Renal function continues to improve as expected, electrolyte , BP, volume status acceptable. --encourage po intake, to keep even with post RADHA diuresis --Continue to avoid nephrotoxic medications including all NSAIDs, DERICK-inhibitor ARB --serology pending, unlikely to see any significant abnormality Will follow Thank you for allowing me to participate in your patient's care. It was a pleasure to see Jamee (2) Increased anion gap metabolic acidosis: (3) HTN (hypertension): (4) Diabetes: (5) Proteinuria: (6) Microscopic hematuria: Subjective Jamee was seen and examined this am. Overall doing well, asymptomatic. Renal function continues to improve,, cr 7.3, electrolyte acceptable. BP fair. Decent UO, 3 L, net + 1 L. Review of Systems Review of Systems: All systems reviewed & are unremarkable except as noted in HPI & below Physical Exam Constitutional: WD/WN, vitals as above well developed and well nourished; no acute distress Neck: trachea midline Respiratory: normal respiratory effort, lungs clear to auscultation no cough Auscultation: no crackles, no rales and no wheezes Cardiovascular: RRR, no murmur, no edema Skin: no rashes, warm and dry Neurologic: moves all extremities and awake Psychiatric: A+Ox3, euthymic affect Results & Data Vital Signs (Past 12 Hours) Vital Signs Temp Pulse Resp BP Pulse Ox 04/24/19 07:49 36.8 C 82 16 118/87 98 04/23/19 23:39 37.0 C 87 16 117/81 100 PG Care Time/CCT Total # of Minutes Spent Total Time Spent with Patient: Total time spent is greater than 50% in coordination of care (as documented) at patient's floor/unit and/or counseling patient:
[2019-04-24] MEDS: PANTOprazole 40 MG TAB PO SCH (08:59)
--- NOTE | 2019-04-24 16:07 | Hospitalist Progress Note ---
Date of Service April 24, 2019 Assessment & Plan (1) RADHA (acute kidney injury): Unclear cause of her RADHA. Possibly due to AIN from her ciprofloxacin vs. ATN from dehydration, though she reports good PO intake prior to all this occurring. - Continue to monitor Cr - Continue to avoid nephrotoxic medications including all NSAIDs, DERICK-inhibitor ARB - Will consider a renal artery duplex as an outpatient to be sure fibromuscular dysplasia is not contributing. Attempted it on 04/24, but the patient did not want to be NPO for 8 hours prior to the study. (2) Increased anion gap metabolic acidosis: Due to RADHA. Resolved. - See above (3) Diabetes: Last A1c was 7.1% from about 1 year ago. Now 8.4% this admission. - Continuing home Lantus 10 units QAM - Sliding scale insulin (4) HTN (hypertension): BP has been generally high-normal with one reading of 180/110 during first day of admission. - Monitor - Follow up outpatient for possible HTN medication - Could do hydralazine PRN (5) Depression: Some anxiety about home & work stressors and certainly about current health issue. - Continue home sertraline (6) GERD (gastroesophageal reflux disease): - Continue PPI (7) DVT prophylaxis: Early ambulation - Low risk per admission calculator Subjective Feeling fairly well. Somewhat unsettled by the NPO order, but otherwise doing well. Review of Systems Review of Systems: All systems reviewed & are unremarkable except as noted in HPI & below Physical Exam Constitutional: WD/WN, vitals as above + obese Eyes: EOM intact bilaterally; no conjunctival abnormality ENMT: external ear and nose normal, oropharynx normal Neck: trachea midline, no thyromegaly normal visual inspection Respiratory: normal respiratory effort, lungs clear to auscultation no respiratory distress Cardiovascular: RRR, no murmur, no edema Gastrointestinal (Abdomen): Inspection/Auscultation: abdomen normal to inspection; abdomen not distended Musculoskeletal: no cyanosis or clubbing, extremities motor strength 5/5 Skin: no rashes, warm and dry Neurologic: moves all extremities and awake Psychiatric: Orientation: alert, oriented to person and cooperative Mood: + anxious mood Results & Data Vital Signs (Past 12 Hours) Vital Signs Temp Pulse Resp BP Pulse Ox 04/24/19 10:51 36.9 C 82 20 126/89 99 04/24/19 07:49 36.8 C 82 16 118/87 98 PG Care Time/CCT Total # of Minutes Spent Total Time Spent with Patient: Total time spent is greater than 50% in coordination of care (as documented) at patient's floor/unit and/or counseling patient:
[2019-04-24] MEDS: SERTRALINE HCL 100 MG TABLET PO SCH (21:42)
[2019-04-24] MEDS: PRAVASTATIN SOD 10 MG TAB PO SCH (21:42)
[2019-04-25 08:03] LABS: Albumin Level 3.7 gm/dl (3.4-5.0); BUN Creatinine Ratio 16.6 (10-20); Calcium 8.2 mg/dl (8.5-10.1); Creatinine Clr Calc Pharmacy 14.1 ml/min; Est GFR (African American) 8.9; Est GFR (Non-African American) 7.7; Phosphorus 6.7 mg/dl (2.5-4.9); Potassium 3.7 mmol/L (3.5-5.1)
[2019-04-25] MEDS: PANTOprazole 40 MG TAB PO SCH (08:35)
[2019-04-25] MEDS: INSULIN GLARGINE SOLOSTAR 100 UNITS/ML 3 ML PEN SQ SCH (08:36)
[2019-04-25] MEDS: INSULIN ASPART 100 UNITS/ML 3 ML PEN SC SCH ×2 (08:37→12:29)
--- NOTE | 2019-04-25 10:58 | Nephrology Progress Note ---
Date of Service April 25, 2019 Assessment & Plan (1) RADHA (acute kidney injury): Jamee is a 39-year-old female admitted with RADHA and gap metabolic acidosis in the setting are recent recurrent urinary tract infection, was moved exposure to antibiotics including Macrobid and ciprofloxacin as well as previous year of ibuprofen use. Urinalysis is low grade proteinuria and microscopic hematuria, or CT abdomen pelvis was negative for postrenal obstruction. 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 intake. With prior history of dialysis requiring acute kidney injury, she certainly has risk factor for recurrent acute kidney injury. Can't exclude possibility for acute GN however seems less likely Renal function continues to improve as expected, electrolyte , BP, volume status acceptable. --encourage po intake, to keep even with post RADHA diuresis --Continue to avoid nephrotoxic medications including all NSAIDs, DERICK-inhibitor ARB --although not ideal, but as renal function rapidly improving, pt able to maintain good oral intake and overall otherwise feeling well, will discharge her with close outpatient lab monitoring. She should have renal panel checked Saturday and then Saturday. advised her to keep well hydrated while at if she notice any unusual symptoms she may to come back to emergency room. Patient verbalized understanding. Will follow (2) Increased anion gap metabolic acidosis: (3) HTN (hypertension): (4) Diabetes: (5) Proteinuria: (6) Microscopic hematuria: Subjective Jamee was seen and examined this am. Overall doing well, asymptomatic. Renal function continues to improve,, cr 6.1, electrolyte acceptable. BP fair. Decent UO, 3 L, net - 2L. Review of Systems Review of Systems: All systems reviewed & are unremarkable except as noted in HPI & below Physical Exam Constitutional: WD/WN, vitals as above well developed and well nourished; no acute distress Respiratory: normal respiratory effort, lungs clear to auscultation no cough Auscultation: no crackles, no rales and no wheezes Cardiovascular: RRR, no murmur, no edema Neurologic: moves all extremities and awake Psychiatric: A+Ox3, euthymic affect Results & Data Vital Signs (Past 12 Hours) Vital Signs Temp Pulse Pulse Resp BP Pulse Ox 04/25/19 07:41 36.6 C 93 H 18 121/86 99 04/25/19 04:10 36.5 C 89 16 114/76 98 04/25/19 00:05 36.8 C 86 17 112/74 97 04/25/19 00:00 90 PG Care Time/CCT Total # of Minutes Spent Total Time Spent with Patient: Total time spent is greater than 50% in coordination of care (as documented) at patient's floor/unit and/or counseling patient:
--- NOTE | 2019-04-25 17:00 | Discharge Summary ---
Date of Service April 25, 2019 Admission HPI Per Admitting Provider 39-year-old female with history of hypertension, hyperlipidemia, diabetes, depression, anemia presents with weakness, shortness of breath on exertion and abdominal discomfort today. Prolonged history of dealing with UTI-like symptoms and being on antibiotics see below. PCP called on 03/31 and UA collected: for possible UTI symptoms, urine culture was unremarkable although urinalysis positive leukocyte estrace and 5-10 WBC/HPF although epithelial cells were elevated at greater than 30/lpf. Nitrofurantoin was prescribed but she did not take it then as symptoms improved. 03/31 culture w as contaminated. Per ED note on 04/07: 2 nights ago she woke up in the middle night with severe left flank pain that moved downward and then went away. Also had urinary frequ ency, urgency and dysuria. Macrotid 1 tab then too. CBC and differential, renal profile, LFTs and lipase levels were unremarkable and CT negative too. Urinalysis 2+ LE. Patient was given 1 L normal saline. Urine culture was negative Per PCP note on 04/08: Fever 101 this morning. She overall feels poorly and continues to have some left flank discomfort intermittently and dysuria intermittently. Pt had UTI symptoms, abnormal urinalysis and ongoing fever so treated with ciprofloxacin 250 mg b.i.d. for 7 days. PT reports only taking it for 5 days. Per PCP note on 04/13: Dr Malhotra on 04/08/19 started on cipro for UTI. Pt no better, weak, having lower abd pressure/discomfort. No fever or chills. No dysuria, hematuria, no flank pain. No abnormal vaginal discharge/bleeding. No BM issues. Urine dip in the office cloudy urine, +2 LE, +4 blood, but no nitrates. Asked to stop cipro (especially since it has not been beneficial but rather has made her feel worse) and told to take macrobid (which is bacteriostatic and should be tolerated better). Per pt took 3 doses then was told to stop it as 04/13 culture grew lactobacillus. Per PCP note 04/18: Per pt cipro "tortured" her so stopped it after 5 days. Urinary sxs resolved but she developed bloating with dysgeusia and increased frequency of BMs with soft, discolored stools (green or orange.) She does have some urinary urgency now but no dysuria. Some blood with wiping but no true rectal bleeding. No fevers since she finished the cipro. Stool cultures ordered then which were negative. Per PCP note 04/21: Diarrhea has started to resolve, but she feels bloated and has a lot of belching. Also gets lightheaded when changing positions - admits that she has not been drinking as much due to her recent diarrhea. Labs ordered. Abnormal. Pt presented to the ED. TODAY: Complaining of weakness, shortness of breath on exertion and abdominal discomfort. Denies any fever, chills, chest pain, abdominal pain, nausea, dysuria, increased urinary frequency, hematuria, hematochezia, melena, diarrhea. Reports occasional headaches during illness but not any right now and had vomited twice when she was febrile in the past. Stool was more formed today, nonbloody and brown. 1 week ago reports was not producing any urine at all but gradually producing more urine and feeling better now. Denies any abd pain, n/v/d, URI sxs, dysuria, hematuria, LE edema or rashes Of note: Acute renal failure after taking Trulicity in 2017 requiring 6 weeks of dialysis Denies drinking alcohol, smoking tobacco or using recreational drugs Principal Diagnosis Acute kidney injury Discharge Exam Constitutional WD/WN, vitals as above Eyes EOM intact bilaterally; no conjunctival abnormality ENMT external ear and nose normal, oropharynx normal Neck trachea midline, no thyromegaly normal visual inspection Respiratory normal respiratory effort, lungs clear to auscultation no respiratory distress Cardiovascular RRR, no murmur, no edema Gastrointestinal (Abdomen) Inspection/Auscultation: abdomen normal to inspection; abdomen not distended Musculoskeletal no cyanosis or clubbing, extremities motor strength 5/5 Skin no rashes, warm and dry Neurologic moves all extremities and awake Psychiatric Orientation: alert, oriented to person and cooperative Discharge Data Allergies Allergy/AdvReac Type Severity Reaction Status Date / Time aspirin Allergy Intermediate SWELLING Verified 04/21/19 17:29 iodine Allergy Unknown SHELLFISH Verified 04/21/19 17:29 salicylates Allergy Unknown ? Verified 04/21/19 17:29 Consultations 04/21/19 23:51 ED Decision to Admit Stat 04/22/19 03:16 Consult Nephrology Routine Ordered Studies 04/21/19 21:41 CT abd pelvis wo con Stat 04/22/19 08:47 US renal/blad retro comp Routine Hospital Course (1) RADHA (acute kidney injury): Unclear cause of her RADHA. Possibly due to AIN from her ciprofloxacin vs. ATN from dehydration, though she reports good PO intake prior to all this occurring. - Continue to avoid nephrotoxic medications including all NSAIDs, DERICK-inhibitor ARB - Will consider a renal artery duplex as an outpatient to be sure fibromuscular dysplasia is not contributing. Attempted it on 04/24, but the patient did not want to be NPO for 8 hours prior to the study. - By 04/25, the Cr was down to 6.2 from a high of 11.1. - She will follow up with Dr. Nava as an outpatient next week. (2) Increased anion gap metabolic acidosis: Due to RADHA. Resolved. - See above (3) Diabetes: Last A1c was 7.1% from about 1 year ago. Now 8.4% this admission. - Continuing home Lantus 10 units QAM - Sliding scale insulin - Will follow up with PCP. (4) HTN (hypertension): BP has been generally high-normal with one reading of 180/110 during first day of admission. - Follow up outpatient for possible HTN medication (5) Depression: Some anxiety about home & work stressors and certainly about current health issue. - Continue home sertraline (6) GERD (gastroesophageal reflux disease): - Continue PPI - Switched to PPI BID on discharge with nephrology ok. (7) DVT prophylaxis: Early ambulation - Low risk per admission calculator Total Time Total Time Spent Total Time Spent (In Minutes): 45 Total Time Includes: Examination of the Patient and Communication With Other Providers Discharge Plan Discharge Items Patient Disposition: Home - Self-Care Reason For Visit: RADHA Discharge Diagnosis: Kidney injury Discharge Goals: Decrease discomfort Activity: Resume your previous activity Non-emergency contact: Primary Care Provider and [employer] Call non-emergency contact if: your symptoms worsen Follow-up/Referrals: Alexandro Malhotra III, MD [Primary Care Provider] - 04/29/19 2:00 pm (Please, follow up at Dr. Malhotra's office with his associate, Keshia MINA, on SaturdayApril 29 at 2:00 pm. *If you need to change this appointment, call their office at [phone].) Linsey Nava MD [Physician] - 05/04/19 2:00 pm (Please, follow up at [facility] Nephrology Office with Dr. Nava on SaturdayMay 04 at 2:00 pm. *The office is located in [address] of [facility]. This is the big building next to this hospital. If you need to change this appointment, call the office at [phone].) Diet: Carb Consistent or DM2 and Heart Healthy Addtl Provider Instructions: Please drink plenty of water to stay hydrated. Dr. Nava was ok with you taking the Prilosec 2 times per day if you need to. Prescriptions: Continued pravastatin 10 mg tablet 10 mg PO HS Qty: 30 RF: 5 sertraline 100 mg tablet 100 mg PO HS RF: 0 acetaminophen [Tylenol Extra Strength] 500 mg Tablet 500 mg PO Q6H PRN (Reason: Pain) RF: 0 Lantus Solostar U-100 Insulin 100 unit/mL (3 mL) insulin pen 10 unit subcut QAM RF: 0 Changed Prilosec OTC 20 mg tablet,delayed release (DR/EC) 20 mg PO BID Qty: 30 RF: 2 Stand-Alone Forms: [facility] Discharge Orders: Discharge Order (Routine); Ordered 04/25/19 Ordered By: Addison Reeder Admission Data Admit Date/Time: 04/22/19 01:54 Attending Provider: Addison Reeder Admit Provider: Jose Manuel Jose Primary Care Provider: Alexandro Malhotra III Other Providers: Deric Zhao ; Addison Reeder Service: Telemetry Other Interventions: Discharge Summary Assessment (RN) Last Done: 04/25/19 13:09 DC Date/Time DO NOT enter until pt leaves facility: 04/25/19 13:28
[2019-04-26 21:49] LABS: ANCA Screen Negative (Negative); Anti Nuclear Antibody Screen NEGATIVE (NEGATIVE); Complement C3 182 MG/DL (83-193); Myeloperoxidase Ab <1.0 AI (<1.0); Proteinase-3 AB <1.0 AI (<1.0); Rheumatoid Factor < 14 IU/ML (<14)
[2019-04-29 06:28] LABS: % Cryocrit DNR; Anti-Glom Basement Antibody <1.0 AI (<1.0); Cryoglobulin, QL Negative (Negative)
== END 2019-04-25 13:28 | disposition home or self-care (01) | DRG 683 ==
LOC: ED 21:01 → SUATTDRO 04-22 01:54 → 2S 04-22 01:54